=== PATIENT | female | born 1945 | race African-American/Black ===

== ENCOUNTER 2017-05-26 12:50 | Emergency (ER) | payer MEDICARE, MEDICAID ==
[~2017-05-26 12:50] MED LIST: ALBU6.7H INH; AMLO5TAB2 PO; ASPI-516 CHEW; BACL10TA PO; GABA300C5 PO; GLIP5TAB8 PO; IPRAAER INH; LEVO.2 PO; LISI40TA PO; METF500T PO; METR1TAB76 PO; PRED1SUS EACH EYE; TRAM50TA PO
[2017-05-26 13:00] VITALS: BP 173/87; PULSE 102; RESP 18; TEMP 97.9; O2SAT 99
--- NOTE | 2017-05-26 13:56 | PD ---
HPI Chief Complaint: Respiratory Symptoms Time Seen by Provider: 13:25 Travel History International Travel<30 days: No Contact w/Intl Traveler<30days: No Traveled to known affect area: No History of Present Illness HPI Patient 71-year-old female with history of diabetes presents emergency department with cough congestion and posttussive emesis by her description for the past few days and gradually worsening. Patient states that she has also lost her voice. She is also a smoker, states her blood sugars been running "good" and she clarifies to me in the 90s. She denies any chest pain denies shortness of breath denies any fevers. States symptoms are moderate, context as above, gradually worsening, associated signs and symptoms as above PFSH Past Medical History Narrative Medical Irregular heartbeat, diabetes, thyroid disease, hyperlipidemia ?: Not Past Surgical History Narrative Surgical Thyroidectomy, left knee surgery, eye surgery Social History Tobacco Use: Yes Allergies-Medications (Allergen,Severity, Reaction): Coded Allergies: No Known Allergies (Unverified Adverse Reaction, Unknown, 05/26/17) Reported Meds & Prescriptions Reported Meds & Active Scripts Active Tessalon Perles (Benzonatate) 100 Mg Cap 100 Mg PO TID PRN Zofran (Ondansetron HCl) 4 Mg Tab 4 Mg PO Q6HR PRN Azithromycin 250 Mg Tab 250 Mg PO DIRECTED Take 2 tabs (500 mg) on day 1 then 1 tab daily x 4 days. Baclofen 10 Mg Tab 10 Mg PO HS Gabapentin 300 Mg Cap 300 Mg PO TID Tramadol (Tramadol HCl) 50 Mg Tab 50 Mg PO Q8H PRN Glipizide 5 Mg Tab 2.5 Mg PO BID Take 30 minutes before a meal Metformin (Metformin HCl) 500 Mg Tab 500 Mg PO BIDPC With meals Lisinopril 40 Mg Tab 40 Mg PO DAILY Amlodipine (Amlodipine Besylate) 5 Mg Tab 5 Mg PO DAILY Synthroid (Levothyroxine Sodium) 200 Mcg Tab 200 Mcg PO DAILY Combivent Respimat Inh (Ipratropium-Albuterol Inh) 20-100 Group Home/Act Aero 1 Puff INH QID Reported Pred Forte Opth 1% (Prednisolone Acetate Opth 1%) 1% Susp 1 Drop EACH EYE DAILY Aspirin 81 Mg Chew 81 Mg CHEW DAILY Proventil Hfa 6.7 GM Inh (Albuterol Sulfate) 90 Mcg/Act Aer 1 Puff INH Q4-6H PRN Review of Systems Except as stated in HPI: all other systems reviewed are Neg Physical Exam Narrative GENERAL: Well-developed well-nourished no obvious distress SKIN: Focused skin assessment warm/dry. HEAD: Atraumatic. Normocephalic. EYES: Pupils equal and round. No scleral icterus. No injection or drainage. ENT: No nasal bleeding or discharge. Mucous membranes pink and moist. TMs clear bilaterally, oropharynx clear moist NECK: Trachea midline. No JVD. CARDIOVASCULAR: Regular rate and rhythm. No murmur appreciated. RESPIRATORY: No accessory muscle use. Clear to auscultation. Breath sounds equal bilaterally. GASTROINTESTINAL: Abdomen soft, non-tender, nondistended. Hepatic and splenic margins not palpable. MUSCULOSKELETAL: No obvious deformities. No clubbing. No cyanosis. No edema. NEUROLOGICAL: Awake and alert. No obvious cranial nerve deficits. Motor grossly within normal limits. Normal speech. PSYCHIATRIC: Appropriate mood and affect; insight and judgment normal. Data Data Last Documented VS Vital Signs Date Time Temp Pulse Resp B/P (MAP) Pulse Ox O2 Delivery O2 Flow Rate FiO2 05/26/17 13:00 97.9 102 18 173/87 (115) 99 Orders Orders Chest, Pa & Lat (05/26/17 ) Ed Discharge Order (05/26/17 14:23) MDM Medical Decision Making Medical Screen Exam Complete: Yes Emergency Medical Condition: Yes Differential Diagnosis Bronchitis, pneumonia, URI, laryngitis Narrative Course Patient is a quite pleasant 71-year-old diabetic female who appears quite well. Chest x-ray negative. Vital signs are stable is no indication further workup at this time. Discussed empiric therapy follow-up with a primary care physician. Discussed smoking cessation at length with her and that smoking has many adverse health outcomes including heart attack stroke and chronic lung disease. She is stable for discharge Diagnosis Primary Impression: Laryngitis Med/Other Pt SpecificInfo: Prescription(s) given Scripts Benzonatate (Tessalon Perles) 100 Mg Cap 100 MG PO TID Y for COUGH, #20 CAP 0 Refills Prov: Tawanda Brandt MD 05/26/17 Ondansetron (Zofran) 4 Mg Tab 4 MG PO Q6HR Y for NAUSEA OR VOMITING, #15 TAB 0 Refills Prov: Tawanda Brandt MD 05/26/17 Azithromycin (Azithromycin) 250 Mg Tab 250 MG PO DIRECTED for Infection, #6 TAB 0 Refills Take 2 tabs (500 mg) on day 1 then 1 tab daily x 4 days. Prov: Tawanda Brandt MD 05/26/17 Disposition: 01 DISCHARGE HOME Condition: Stable Tawanda Brandt MD May 26, 2017 13:56
[2017-05-26] MEDS ORDERED: AZIT250T3 PO (14:04)
--- NOTE | 2017-05-26 14:15 | RADRPT ---
EXAM DATE/TIME: 05/26/2017 13:34 [facility] COMPARISON: No previous studies available for comparison. INDICATIONS : Cough. MEDICAL HISTORY : Asthma. SURGICAL HISTORY : None. ENCOUNTER: Initial ACUITY: 1 month PAIN SCORE: 0/10 LOCATION: Bilateral chest FINDINGS: PA and lateral views of the chest demonstrate the lungs to be symmetrically aerated without evidence of mass, infiltrate or effusion. The cardiomediastinal contours are unremarkable. Osseous structure s are intact. CONCLUSION: No acute disease. Tawanda Ziegler MD on May 26, 2017 at 14:12 Board Certified Radiologist. This report was verified electronically.
[2017-05-26] MEDS ORDERED: ZOFR4TAB PO (14:29)
[2017-05-26] MEDS ORDERED: BENZ100 PO (14:29)
== END 2017-05-26 14:38 | disposition home or self-care (01) ==
LOC: NEPD 12:50
DX: J04.0 Acute laryngitis (principal); E07.9 Disorder of thyroid, unspecified; E11.9 Type 2 diabetes mellitus without complications; E78.5 Hyperlipidemia, unspecified; Z72.0 Tobacco use; Z79.84 Long term (current) use of oral hypoglycemic drugs
CPT/HCPCS: 71046; 99283

== ENCOUNTER 2017-08-01 19:25 | Emergency (ER) | payer MEDICARE, MEDICAID ==
[~2017-08-01] VITALS: Ht 165.1 cm; Wt 77.0 kg
[~2017-08-01 19:25] MED LIST changes: +AZIT250T3 PO; +BENZ100 PO; -METR1TAB76 PO; +ZOFR4TAB PO
[2017-08-01 19:33] VITALS: BP 149/91; PULSE 98; RESP 18; TEMP 98.7; O2SAT 100
--- NOTE | 2017-08-01 19:46 | PD ---
HPI Chief Complaint: Pain: Acute or Chronic Time Seen by Provider: 19:40 Travel History International Travel<30 days: No Contact w/Intl Traveler<30days: No Traveled to known affect area: No History of Present Illness HPI 71-year-old female with history of hypertension, diabetes, osteoarthritis, presents to the emergency department for evaluation of left shoulder pain 1 week. Patient states she does not recall injuring it. She has not been doing any new activity. She states pain is a constant ache but exacerbated with movement or touch. She states she has been having her daughter massaged and put rubbing alcohol on it without any resolution of symptoms. Patient denies any chest pain or tightness. She has had no shortness of breath. The pain does not radiate anywhere. She has no other symptoms to report at this time. PFSH Past Medical History Arthritis: Yes Heart Rhythm Problems: Yes Diabetes: Yes Patient Takes Glucophage: Yes Hypertension: Yes Thyroid Disease: Yes Triglycerides - High: Yes Tetanus Vaccination: > 5 Years Influenza Vaccination: Yes Past Surgical History Ear Surgery: Yes (bilat eye) Eye Surgery: Yes Tonsillectomy: Yes Social History Alcohol Use: Yes (occ) Tobacco Use: Yes Substance Use: No Allergies-Medications (Allergen,Severity, Reaction): Coded Allergies: No Known Allergies (Unverified Adverse Reaction, Unknown, 08/01/17) Reported Meds & Prescriptions Reported Meds & Active Scripts Active Mobic (Meloxicam) 7.5 Mg Tab 7.5 Mg PO DAILY PRN Baclofen 10 Mg Tab 10 Mg PO HS Gabapentin 300 Mg Cap 300 Mg PO TID Tramadol (Tramadol HCl) 50 Mg Tab 50 Mg PO Q8H PRN Glipizide 5 Mg Tab 2.5 Mg PO BID Take 30 minutes before a meal Metformin (Metformin HCl) 500 Mg Tab 500 Mg PO BIDPC With meals Lisinopril 40 Mg Tab 40 Mg PO DAILY Amlodipine (Amlodipine Besylate) 5 Mg Tab 5 Mg PO DAILY Synthroid (Levothyroxine Sodium) 200 Mcg Tab 200 Mcg PO DAILY Combivent Respimat Inh (Ipratropium-Albuterol Inh) 20-100 Correction/Act Aero 1 Puff INH QID Reported Pred Forte Opth 1% (Prednisolone Acetate Opth 1%) 1% Susp 1 Drop EACH EYE DAILY Aspirin 81 Mg Chew 81 Mg CHEW DAILY Proventil Hfa 6.7 GM Inh (Albuterol Sulfate) 90 Mcg/Act Aer 1 Puff INH Q4-6H PRN Review of Systems Except as stated in HPI: all other systems reviewed are Neg Physical Exam Narrative GENERAL: Well-nourished female patient, ambulatory with cane assistance, in no acute distress SKIN: Focused skin assessment warm/dry. HEAD: Atraumatic. Normocephalic. EYES: Pupils equal and round. No scleral icterus. No injection or drainage. ENT: No nasal bleeding or discharge. Mucous membranes pink and moist. NECK: Trachea midline. No JVD. CARDIOVASCULAR: Regular rate and rhythm. No murmur appreciated. RESPIRATORY: No accessory muscle use. Clear to auscultation. Breath sounds equal bilaterally. MUSCULOSKELETAL: No obvious deformities. No clubbing. No cyanosis. No edema. Tenderness elicited palpation of the anterior aspect of the left shoulder. Patient reports pain with external rotation of the left upper extremity without side. Distal pulses are palpable. Cap refill within normal limits. No obvious deformity. NEUROLOGICAL: Awake and alert. No obvious cranial nerve deficits. Motor grossly within normal limits. Normal speech. PSYCHIATRIC: Appropriate mood and affect; insight and judgment normal. Data Data Last Documented VS Vital Signs Date Time Temp Pulse Resp B/P (MAP) Pulse Ox O2 Delivery O2 Flow Rate FiO2 08/01/17 19:54 20 08/01/17 19:33 98.7 98 149/91 (110) 100 Orders Orders Shoulder, Complete (>2vws) (08/01/17 ) Ketorolac Inj (Toradol Inj) (08/01/17 20:00) Ed Discharge Order (08/01/17 20:30) [facility] Medical Decision Making Medical Screen Exam Complete: Yes Emergency Medical Condition: Yes Medical Record Reviewed: Yes Differential Diagnosis Tendinitis versus osteoarthritis versus herpetic predrome versus bursitis Narrative Course 71-year-old female presents emergency department for evaluation of left shoulder pain. This is exacerbated with movement. Patient reports no fever chills. The shoulder is not deformed. There is no warmth to touch. Patient is treated for pain. X-ray imaging confirms osteoarthritis of the left shoulder. I have encouraged follow-up with a primary care provider and clinical applications specialist if symptoms persist. Patient will be discharged home at this time. Diagnosis Primary Impression: Left shoulder pain Qualified Codes: M25.512 - Pain in left shoulder Additional Impression: Osteoarthritis of left shoulder Qualified Codes: M19.012 - Primary osteoarthritis, left shoulder Referrals: Orthopaedic Surgeon Primary Care Physician Patient Instructions: General Instructions, Shoulder Pain (ED) Additional Instructions: Ice and/or warm moist heat may help to alleviate symptoms Daily range of motion exercises Follow-up with clinical applications specialist. Outpatient MRI may be warranted Return immediately to the emergency department with any acute worsening symptoms Med/Other Pt SpecificInfo: Prescription(s) given Scripts Meloxicam (Mobic) 7.5 Mg Tab 7.5 MG PO DAILY Y for PAIN SCALE 1 TO 10, #14 TAB 0 Refills Prov: Sofia Fritz 08/01/17 Disposition: 01 DISCHARGE HOME Condition: Stable Sofia Fritz August 01, 2017 19:46
[2017-08-01] MEDS ORDERED: KETOROLAC TROMETHAMINE 60 MG/2 ML (IM) VIAL IM ONE (20:00)
--- NOTE | 2017-08-01 20:27 | RADRPT ---
EXAM DATE: 08/01/2017 8:18 PM EDT AGE/SEX: 71 years / Female INDICATIONS: Left shoulder pain. No prior trauma. CLINICAL DATA: This is the patient's initial encounter. Patient reports that signs and symptoms have been present for 1 week and indicates a pain score of 8/10. MEDICAL/SURGICAL HISTORY: Asthma. None. COMPARISON: No prior [facility] exams available for comparison. FINDINGS: There is moderate to severe osteoarthritis of the left shoulder joint. Mild osteoarthritis of the lef t AC joint. No acute fracture or dislocation. CONCLUSION: Moderate to severe osteoarthritis of the left shoulder. Electronically signed by: Catalino Alcocer MD 08/01/2017 8:26 PM EDT
[2017-08-01] MEDS ORDERED: MOBI7.5T PO (20:33)
[2017-08-01 22:11] VITALS: BP 139/76
== END 2017-08-01 22:13 | disposition home or self-care (01) ==
LOC: NEPE 19:25
DX: M19.012 Primary osteoarthritis, left shoulder (principal); I10 Essential (primary) hypertension; E11.9 Type 2 diabetes mellitus without complications; E07.9 Disorder of thyroid, unspecified; Z72.0 Tobacco use
CPT/HCPCS: 73030; 96372; 99283; J1885

== ENCOUNTER 2017-08-03 11:30 | Inpatient (IN) | payer MEDICARE, MEDICAID ==
[~2017-08-03] VITALS: Ht 165.1 cm; Wt 77.0 kg
[2017-08-03] VITALS (14 sets, daily range): BP systolic 120–176; BP diastolic 65–92; PULSE 60–88; RESP 16–20; TEMP 98–98.5; O2SAT 97–99
[~2017-08-03 11:30] MED LIST changes: -AZIT250T3 PO; -BENZ100 PO; +MOBI7.5T PO; -ZOFR4TAB PO
--- NOTE | 2017-08-03 11:51 | PD ---
HPI Chief Complaint: Chest Pain Time Seen by Provider: 11:46 Travel History International Travel<30 days: No Contact w/Intl Traveler<30days: No Traveled to known affect area: No History of Present Illness HPI 71-year-old female with history of hypertension, diabetes, osteoarthritis, presents to the emergency department for evaluation of left shoulder pain 1 week. Patient states she does not recall injuring it. She has not been doing any new activity. She states pain is a constant ache but exacerbated with movement or touch. Patient was discharged 2 days ago with similar complaint, with diagnosis of arthritis in the shoulder. She was started on meloxicam twice daily, but patient states she never picked it up. Patient went to see her primary care physician who sent her here for cardiac workup. Patient denies pain changes with exertion. It is worse with movement and palpation. She has however a smoker, diabetic, and has previous cardiac history. She is unsure of her last stress test but knows it was over a year. Patient denies fever, chills, cough, shortness of breath, wheezing, nausea, vomiting, or diarrhea. She has no known drug allergies. Patient states she has arthritis in all of her joints, but the shoulder feels "different". Patient states her pain in the left shoulder is 10 out of 10. Patient has no known drug allergies. PFSH Past Medical History Arthritis: Yes Heart Rhythm Problems: Yes Diabetes: Yes Hypertension: Yes Thyroid Disease: Yes Triglycerides - High: Yes Past Surgical History Ear Surgery: Yes (bilat eye) Eye Surgery: Yes Tonsillectomy: Yes Social History Alcohol Use: Yes (occ) Tobacco Use: Yes Substance Use: No Allergies-Medications (Allergen,Severity, Reaction): Coded Allergies: No Known Allergies (Unverified Adverse Reaction, Unknown, 08/03/17) Reported Meds & Prescriptions Reported Meds & Active Scripts Active Mobic (Meloxicam) 7.5 Mg Tab 7.5 Mg PO DAILY PRN Baclofen 10 Mg Tab 10 Mg PO HS Gabapentin 300 Mg Cap 300 Mg PO TID Tramadol (Tramadol HCl) 50 Mg Tab 50 Mg PO Q8H PRN Glipizide 5 Mg Tab 2.5 Mg PO BID Take 30 minutes before a meal Metformin (Metformin HCl) 500 Mg Tab 500 Mg PO BIDPC With meals Lisinopril 40 Mg Tab 40 Mg PO DAILY Amlodipine (Amlodipine Besylate) 5 Mg Tab 5 Mg PO DAILY Synthroid (Levothyroxine Sodium) 200 Mcg Tab 200 Mcg PO DAILY Combivent Respimat Inh (Ipratropium-Albuterol Inh) 20-100 Skilled Nursing/Act Aero 1 Puff INH QID Reported Pred Forte Opth 1% (Prednisolone Acetate Opth 1%) 1% Susp 1 Drop EACH EYE DAILY Aspirin 81 Mg Chew 81 Mg CHEW DAILY Proventil Hfa 6.7 GM Inh (Albuterol Sulfate) 90 Mcg/Act Aer 1 Puff INH Q4-6H PRN Review of Systems Except as stated in HPI: all other systems reviewed are Neg General / Constitutional: No: Fever Eyes: No: Visual changes HENT: No: Headaches Cardiovascular: No: Chest Pain or Discomfort Respiratory: No: Shortness of Breath Gastrointestinal: No: Abdominal Pain Genitourinary: No: Dysuria Musculoskeletal: No: Pain Skin: No Rash Neurologic: No: Weakness Psychiatric: No: Depression Endocrine: No: Polydipsia Hematologic/Lymphatic: No: Easy Bruising Physical Exam Narrative GENERAL: Patient appears in mild distress. SKIN: Warm and dry. Normal color. Normal turgor. No diaphoresis. No signs of trauma. HEAD: Atraumatic. Normocephalic. EYES: Pupils equal and round. No scleral icterus. No injection or drainage. ENT: No nasal bleeding or discharge. Mucous membranes pink and moist. Pharynx is clear. Airways patent NECK: Trachea midline. No JVD. Supple and nontender CARDIOVASCULAR: Regular rate and rhythm. No murmurs gallops or rubs RESPIRATORY: No accessory muscle use. Clear to auscultation. Breath sounds equal bilaterally. GASTROINTESTINAL: Abdomen soft, non-tender, nondistended. Hepatic and splenic margins not palpable. MUSCULOSKELETAL: Extremities without clubbing, cyanosis, or edema. No obvious deformities. Patient has reproducible pain in the left shoulder with both palpation, mainly to the posterior aspect, as well as with movement. Range of motion is intact although limited by pain. She has normal neurovascular exam throughout. NEUROLOGICAL: Awake and alert. No obvious cranial nerve deficits. Motor grossly within normal limits. Five out of 5 muscle strength in the arms and legs. Normal speech. PSYCHIATRIC: Appropriate mood and affect; insight and judgment normal. Data Data Last Documented VS Vital Signs Date Time Temp Pulse Resp B/P (MAP) Pulse Ox O2 Delivery O2 Flow Rate FiO2 5/30/18 11:52 99 Room Air 08/03/17 11:52 08/03/17 11:47 80 20 08/03/17 11:36 98.5 Orders Orders Electrocardiogram (08/03/17 11:50) Ckmb (Isoenzyme) Profile (08/03/17 11:50) Complete Blood Count With Diff (08/03/17 11:50) Comprehensive Metabolic Panel (08/03/17 11:50) Magnesium (Mg) (08/03/17 11:50) Prothrombin Time / Inr (Pt) (08/03/17 11:50) Act Partial Throm Time (Ptt) (08/03/17 11:50) Troponin I (08/03/17 11:50) Chest, Single Ap (08/03/17 11:50) Ecg Monitoring (08/03/17 11:50) Bilateral Bp Monitoring (08/03/17 11:50) Iv Access Insert/Monitor (08/03/17 11:50) Oximetry (08/03/17 11:50) Oxygen Administration (08/03/17 11:50) Aspirin Chew (Aspirin Chew) (08/03/17 12:00) Morphine Inj (Morphine Inj) (08/03/17 12:00) Sodium Chloride 0.9% Flush (Ns Flush) (08/03/17 12:00) Nitroglycerin Sl (Nitrostat Sl) (08/03/17 12:00) Sodium Chlorid 0.9% 500 Ml Inj (Ns 500 M (08/03/17 12:00) Nitroglycerin 2% Oint (Nitroglycerin 2% (08/03/17 13:30) Heparin Inj (Heparin Inj) (08/03/17 13:30) Heparin Inj (Heparin Inj) (08/03/17 19:30) Heparin Inj (Heparin Inj) (08/03/17 19:30) Heparin-D5w 25,000 U/250 Ml (Heparin-D5w (08/03/17 13:30) Cbc No Diff, Includes Plts (08/06/17 06:00) Act Partial Throm Time (Ptt) (08/03/17 20:19) Occult Blood (Hemoccult) Stool (08/03/17 13:19) Labs Laboratory Tests Test 08/03/17 11:55 White Blood Count 5.3 TH/MM3 Red Blood Count 4.25 MIL/MM3 Hemoglobin 13.6 GM/DL Hematocrit 40.1 % Mean Corpuscular Volume 94.2 FL Mean Corpuscular Hemoglobin 31.9 PG Mean Corpuscular Hemoglobin Concent 33.9 % Red Cell Distribution Width 13.9 % Platelet Count 201 TH/MM3 Mean Platelet Volume 9.2 FL Neutrophils (%) (Auto) 52.6 % Lymphocytes (%) (Auto) 37.0 % Monocytes (%) (Auto) 7.2 % Eosinophils (%) (Auto) 2.6 % Basophils (%) (Auto) 0.6 % Neutrophils # (Auto) 2.8 TH/MM3 Lymphocytes # (Auto) 1.9 TH/MM3 Monocytes # (Auto) 0.4 TH/MM3 Eosinophils # (Auto) 0.1 TH/MM3 Basophils # (Auto) 0.0 TH/MM3 CBC Comment DIFF FINAL Differential Comment Prothrombin Time 9.5 SEC Prothromb Time International Ratio 0.9 RATIO Activated Partial Thromboplast Time 23.8 SEC Blood Urea Nitrogen 14 MG/DL Creatinine 0.91 MG/DL Random Glucose 85 MG/DL Total Protein 7.2 GM/DL Albumin 3.4 GM/DL Calcium Level 8.5 MG/DL Magnesium Level 2.0 MG/DL Alkaline Phosphatase 165 U/L Aspartate Amino Transf (AST/SGOT) 53 U/L Alanine Aminotransferase (ALT/SGPT) 106 U/L Total Bilirubin 0.2 MG/DL Sodium Level 143 MEQ/L Potassium Level 4.3 MEQ/L Chloride Level 107 MEQ/L Carbon Dioxide Level 26.0 MEQ/L Anion Gap 10 MEQ/L Estimat Glomerular Filtration Rate 74 ML/MIN Total Creatine Kinase 77 U/L Troponin I 0.11 NG/ML [facility] Medical Decision Making Medical Screen Exam Complete: Yes Emergency Medical Condition: Yes Medical Record Reviewed: Yes Differential Diagnosis Left shoulder pain. Arthritis. Possible cardiac syndrome. Narrative Course Patient appears medically stable at time of exam. EKG shows sinus rhythm with question of anterior myocardial infarction of indeterminate age. Labs ordered including CBC, CMP, cardiac panel, and coagulation studies. Patient is given 324 mg aspirin p.o. as well as 2 mg morphine IV, 0.4 mg sublingual nitro once, and a 500 mL of normal saline bolus. Chest x-ray is ordered. Chest x-ray shows no acute process. CBC is unremarkable. Coagulation studies shows a PT of 9.5, INR 0.9, APTT is 23.8 Chemistries are unremarkable except for GFR 74, AST is 53, ALT is 106, alk phos is 165. Total creatinine kinase is 77, troponin is elevated at 0.11. Patient is discussed with Dr. Feldman who examined the patient with me. At reexamination the patient is pain-free. It is felt the patient should be admitted due to her elevated troponin with history of chest pain. Patient started on Nitropaste 0.5 inches topically now. Patient also started on a heparin drip per protocol. Hospitalist is called for admission, and appellate court judge will be consulted. Diagnosis Primary Impression: Chest pain at rest Additional Impression: Elevated troponin Admitting Information Admitting Physician Requests: Admit Condition: Stable Isidoro Mckeon August 03, 2017 11:51
[2017-08-03] MEDS ORDERED: SODIUM CHLORID 0.9% 500 ML INJ 500 ML IV ONE (12:00)
[2017-08-03] MEDS ORDERED: NITROGLYCERIN 0.4 MG SL 25 TABS/BTL SL ONE (12:00)
[2017-08-03] MEDS ORDERED: SODIUM CHLORIDE 0.9% FLUSH 10 ML FLUSH IVF PRN (12:00)
[2017-08-03] MEDS ORDERED: ASPIRIN 81 MG CHEW TAB PO ONE (12:00)
[2017-08-03] MEDS ORDERED: MORPHINE SULFATE 4 MG/ML INJ IV PUSH ONE (12:00)
[2017-08-03 12:15] LABS: AUTOMATED NEUTROPHIL # 2.8 TH/MM3 (1.8-7.7); BASOPHIL % 0.6 % (0.0-2.0); EOSINOPHIL # 0.1 TH/MM3 (0-0.4); EOSINOPHIL % 2.6 % (0.0-4.0); HEMATOCRIT 40.1 % (35.0-46.0); HEMOGLOBIN 13.6 GM/DL (11.6-15.3); LYMPHOCYTE # 1.9 TH/MM3 (1.0-4.8); MEAN CELL VOLUME 94.2 FL (80.0-100.0); MEAN CORPUSCULAR HEMOGLOBIN 31.9 PG (27.0-34.0); MEAN CORPUSCULAR HGB CONC 33.9 % (32.0-36.0); MEAN PLATELET VOLUME 9.2 FL (7.0-11.0); MONO % 7.2 % (0.0-8.0); MONOCYTE # 0.4 TH/MM3 (0-0.9); NEUT % 52.6 % (16.0-70.0); PLATELET COUNT 201 TH/MM3 (150-450); RED BLOOD COUNT 4.25 MIL/MM3 (4.00-5.30); RED CELL DISTRIBUTION WIDTH 13.9 % (11.6-17.2); WHITE BLOOD COUNT 5.3 TH/MM3 (4.0-11.0)
[2017-08-03 12:24] LABS: INTERNATIONAL NORMALIZED RATIO 0.9 RATIO; PROTHROMBIN TIME - PATIENT 9.5 SEC (9.8-11.6)
[2017-08-03 12:30] LABS: ALBUMIN 3.4 GM/DL (3.4-5.0); ALT (GPT) 106 U/L (10-53); AST (GOT) 53 U/L (15-37); BLOOD UREA NITROGEN 14 MG/DL (7-18); CALCIUM 8.5 MG/DL (8.5-10.1); CHLORIDE 107 MEQ/L (98-107); CREATININE 0.91 MG/DL (0.50-1.00); GLOMERULAR FILTRATION RATE 74 ML/MIN (>89); GLUCOSE,RANDOM 85 MG/DL (74-106); SODIUM (NA) 143 MEQ/L (136-145)
[2017-08-03 12:34] LABS: ALKALINE PHOSPHATASE 165 U/L (45-117); TOTAL BILIRUBIN ADULT 0.2 MG/DL (0.2-1.0); TOTAL PROTEIN 7.2 GM/DL (6.4-8.2); TROPONIN I 0.11 NG/ML (0.02-0.05)
--- NOTE | 2017-08-03 12:34 | RADRPT ---
EXAM DATE: 08/03/2017 12:16 PM EDT AGE/SEX: 71 years / Female INDICATIONS: Left sided chest pain. CLINICAL DATA: This is the patient's initial encounter. Patient reports that signs and symptoms have been present for 3 days and indicates a pain score of 5/10. MEDICAL/SURGICAL HISTORY: Asthma. None. COMPARISON: No prior exams available for comparison. FINDINGS: No focal consolidation. Minimal basilar atelectasis. Tortuous aorta. No pneumothorax. CONCLUSION: No acute findings. Mildly tortuous aorta. Electronically signed by: Catalino Alcocer MD 08/03/2017 12:33 PM EDT
--- NOTE | 2017-08-03 13:22 | PD ---
Physical Exam Date Seen by Provider: August 03, 2017 Data Data Last Documented VS Vital Signs Date Time Temp Pulse Resp B/P (MAP) Pulse Ox O2 Delivery O2 Flow Rate FiO2 08/03/17 11:52 99 Room Air 08/03/17 11:52 08/03/17 11:47 80 20 08/03/17 11:36 98.5 Orders Orders Electrocardiogram (08/03/17 11:50) Ckmb (Isoenzyme) Profile (08/03/17 11:50) Complete Blood Count With Diff (08/03/17 11:50) Comprehensive Metabolic Panel (08/03/17 11:50) Magnesium (Mg) (08/03/17 11:50) Prothrombin Time / Inr (Pt) (08/03/17 11:50) Act Partial Throm Time (Ptt) (08/03/17 11:50) Troponin I (08/03/17 11:50) Chest, Single Ap (08/03/17 11:50) Ecg Monitoring (08/03/17 11:50) Bilateral Bp Monitoring (08/03/17 11:50) Iv Access Insert/Monitor (08/03/17 11:50) Oximetry (08/03/17 11:50) Oxygen Administration (08/03/17 11:50) Aspirin Chew (Aspirin Chew) (08/03/17 12:00) Morphine Inj (Morphine Inj) (08/03/17 12:00) Sodium Chloride 0.9% Flush (Ns Flush) (08/03/17 12:00) Nitroglycerin Sl (Nitrostat Sl) (08/03/17 12:00) Sodium Chlorid 0.9% 500 Ml Inj (Ns 500 M (08/03/17 12:00) Labs Laboratory Tests Test 08/03/17 11:55 White Blood Count 5.3 TH/MM3 Red Blood Count 4.25 MIL/MM3 Hemoglobin 13.6 GM/DL Hematocrit 40.1 % Mean Corpuscular Volume 94.2 FL Mean Corpuscular Hemoglobin 31.9 PG Mean Corpuscular Hemoglobin Concent 33.9 % Red Cell Distribution Width 13.9 % Platelet Count 201 TH/MM3 Mean Platelet Volume 9.2 FL Neutrophils (%) (Auto) 52.6 % Lymphocytes (%) (Auto) 37.0 % Monocytes (%) (Auto) 7.2 % Eosinophils (%) (Auto) 2.6 % Basophils (%) (Auto) 0.6 % Neutrophils # (Auto) 2.8 TH/MM3 Lymphocytes # (Auto) 1.9 TH/MM3 Monocytes # (Auto) 0.4 TH/MM3 Eosinophils # (Auto) 0.1 TH/MM3 Basophils # (Auto) 0.0 TH/MM3 CBC Comment DIFF FINAL Differential Comment Prothrombin Time 9.5 SEC Prothromb Time International Ratio 0.9 RATIO Activated Partial Thromboplast Time 23.8 SEC Blood Urea Nitrogen 14 MG/DL Creatinine 0.91 MG/DL Random Glucose 85 MG/DL Total Protein 7.2 GM/DL Albumin 3.4 GM/DL Calcium Level 8.5 MG/DL Magnesium Level 2.0 MG/DL Alkaline Phosphatase 165 U/L Aspartate Amino Transf (AST/SGOT) 53 U/L Alanine Aminotransferase (ALT/SGPT) 106 U/L Total Bilirubin 0.2 MG/DL Sodium Level 143 MEQ/L Potassium Level 4.3 MEQ/L Chloride Level 107 MEQ/L Carbon Dioxide Level 26.0 MEQ/L Anion Gap 10 MEQ/L Estimat Glomerular Filtration Rate 74 ML/MIN Total Creatine Kinase 77 U/L Troponin I 0.11 NG/ML [facility] Medical Record Reviewed: Yes Supervised Visit with CHLOE: Yes Interpretation(s) Vital Signs Date Time Temp Pulse Resp B/P (MAP) Pulse Ox O2 Delivery O2 Flow Rate FiO2 08/03/17 11:52 99 Room Air 08/03/17 11:52 99 Room Air 08/03/17 11:47 80 20 99 Room Air 08/03/17 11:47 78 18 141/92 (108) 99 Room Air 08/03/17 11:36 98.5 77 16 121/65 (83) 97 Narrative Course I, Dr. Feldman, have reviewed the advance practice practitioner's documentation and am in agreement, met with the patient face to face, made the diagnosis, and the medical decision making was done by me. *My assessment and Findings: Patient is a 71-year-old female with history of hypertension, diabetes, osteoarthritis, presents the emergency room with complaints of left-sided chest pain. Patient reports that she was seen in the emergency room on Tuesday, reports that she had left shoulder pain at that time and after an an x-ray was obtained and was deemed negative, patient was sent home. Patient reports that she continued to have left-sided shoulder pain but now had pain to her left chest, she was sent to the emergency room by her primary care doctor for cardiac rule out. Patient reports that she had been having pinching sensation to her left chest which had been intermittent in nature for the past week, reports that nothing makes symptoms better or worse. Patient did receive nitroglycerin as well as morphine in the emergency room, patient has complete resolution of symptoms at this time. Patient denies history of ACS, denies history of cardiac stents or prior NV, she does not have a secretary of police in this area. All labs and all studies reviewed, patient does have a elevated troponin Laboratory Tests Test 08/03/17 11:55 White Blood Count 5.3 TH/MM3 (4.0-11.0) Red Blood Count 4.25 MIL/MM3 (4.00-5.30) Hemoglobin 13.6 GM/DL (11.6-15.3) Hematocrit 40.1 % (35.0-46.0) Mean Corpuscular Volume 94.2 FL (80.0-100.0) Mean Corpuscular Hemoglobin 31.9 PG (27.0-34.0) Mean Corpuscular Hemoglobin Concent 33.9 % (32.0-36.0) Red Cell Distribution Width 13.9 % (11.6-17.2) Platelet Count 201 TH/MM3 (150-450) Mean Platelet Volume 9.2 FL (7.0-11.0) Neutrophils (%) (Auto) 52.6 % (16.0-70.0) Lymphocytes (%) (Auto) 37.0 % (9.0-44.0) Monocytes (%) (Auto) 7.2 % (0.0-8.0) Eosinophils (%) (Auto) 2.6 % (0.0-4.0) Basophils (%) (Auto) 0.6 % (0.0-2.0) Neutrophils # (Auto) 2.8 TH/MM3 (1.8-7.7) Lymphocytes # (Auto) 1.9 TH/MM3 (1.0-4.8) Monocytes # (Auto) 0.4 TH/MM3 (0-0.9) Eosinophils # (Auto) 0.1 TH/MM3 (0-0.4) Basophils # (Auto) 0.0 TH/MM3 (0-0.2) CBC Comment DIFF FINAL Differential Comment Prothrombin Time 9.5 SEC (9.8-11.6) Prothromb Time International Ratio 0.9 RATIO Activated Partial Thromboplast Time 23.8 SEC (24.3-30.1) Blood Urea Nitrogen 14 MG/DL (7-18) Creatinine 0.91 MG/DL (0.50-1.00) Random Glucose 85 MG/DL (74-106) Total Protein 7.2 GM/DL (6.4-8.2) Albumin 3.4 GM/DL (3.4-5.0) Calcium Level 8.5 MG/DL (8.5-10.1) Magnesium Level 2.0 MG/DL (1.5-2.5) Alkaline Phosphatase 165 U/L (45-117) Aspartate Amino Transf (AST/SGOT) 53 U/L (15-37) Alanine Aminotransferase (ALT/SGPT) 106 U/L (10-53) Total Bilirubin 0.2 MG/DL (0.2-1.0) Sodium Level 143 MEQ/L (136-145) Potassium Level 4.3 MEQ/L (3.5-5.1) Chloride Level 107 MEQ/L (98-107) Carbon Dioxide Level 26.0 MEQ/L (21.0-32.0) Anion Gap 10 MEQ/L (5-15) Estimat Glomerular Filtration Rate 74 ML/MIN (>89) Total Creatine Kinase 77 U/L (26-192) Troponin I 0.11 NG/ML (0.02-0.05) Troponin 0.11. Patient will be started on heparin, she is chest pain-free at this time, Nitropaste will be placed. Patient will require admission to the hospital. Patient was given aspirin upon arrival to the emergency room. Diagnosis Primary Impression: NSTEMI (non-ST elevated myocardial infarction) Admitting Information Admitting Physician Requests: Admit Condition: Stable Amber Feldman DO August 03, 2017 13:22
[2017-08-03] MEDS ORDERED: HEPARIN-D5W 25,000 U/250 ML 250 ML IV PRN (13:30)
[2017-08-03] MEDS ORDERED: NITROGLYCERIN 2% OINT 1 GM PACKET TOPICAL ONE (13:30)
[2017-08-03] MEDS ORDERED: HEPARIN SODIUM - IV 10,000 UNITS/10 ML VIAL IV PUSH ONE (13:30)
[2017-08-03] MEDS ORDERED: SODIUM CHLORIDE 0.9% FLUSH 10 ML FLUSH IV FLUSH PRN ×3 (14:00→16:30)
[2017-08-03] MEDS ORDERED: ALBUTEROL SULFATE 90 MCG/ACT HFA 8 GM INHALER INH PRN (14:00)
[2017-08-03] MEDS ORDERED: HEPARIN-NS/PF INJ 500 ML ONE (14:33)
[2017-08-03] MEDS ORDERED: MIDAZOLAM HCL 2 MG/2 ML VIAL ONE (14:33)
[2017-08-03] MEDS ORDERED: CARVEDILOL 3.125 MG TAB PO ONE (15:30)
[2017-08-03] MEDS ORDERED: BACITRACIN OINT 0.9 GM PKT TOP ONE (15:30)
[2017-08-03] MEDS ORDERED: MISC INFORMATION XX ONE (15:30)
--- NOTE | 2017-08-03 15:32 | CATHPROC ---
[facility] HIS Report Study Information Study Number Scheduled Start Study Start [id number] 08/03/2017 Aug 03 2017 2:02PM Study Type Left Heart Cath Referring Institution Admit Source Facility Department 1 Emergency department [facility] - Power Plant Mechanic Physician and Clinical Staff Initial Aleksey Roth Shellacker Daniel Lang RN Shellacker Neha Greenberg RN Recorder Suzanna Rincon,RT(R) Recorder Amber Jessica,LEISA Scrub Kathy Garber ,RT(R) Procedures Performed Procedure Location (Site) Vessel Name Angiogram LV LV Ventricle Coronary Angiograms LCA Left Coronary Coronary Angiograms RCA Right Coronary L Heart Cath Equipment Time Lump Machine Operator Description Size Mfg Part Number Used/Scraped TRANSDUCER, TRUWAVE [id number] 14:15 CHILDRESS VASQUEZ * Used W/STOCKCOCK *[id number] *[id number] *[id number] 14:15 MEDLINE INDUSTRIES PACK, CCL CUSTOM * Used *[id number] 14:15 Hyperpot PACER PEN, SKIN DUAL W/ RULER * Used *[id number] 14:15 Jetaport WIRE, 3MMJ .035 180CM 180CM Used *[id number] 14:15 NAMIC MANIFOLD, 4 PORT * Used *[id number] 14:15 NYCOMED OMNIPAQUE, 350 MG, 150ML 150ML [id number] 14:15 ZAMBRANO MEDICAL BLANKET,WARM AIR CCL * Used *[id number] 14:15 TERUMO MEDICAL SHEATH, FR4 TERUMO (10CM) FR 4 Used *[id number] History: Current Medications Medication Dosage/Unit Route Frequency Last Date/Time Taken ASA Glypizide LISINOPRIL NORVASC History: Allergies Allergy Reaction No Known Allergies History: Risk Factors Family History of Hypertension Dyslipidemia Previous AR Previous Heart Failure Premature CAD Yes No Yes No No Prior Valve Prior PCI Prior CABG Surgery No No No Cerebrovascular Peripheral Artery Chronic Lung On Dialysis Diabetes Diabetes Therapy Disease Disease Disease No No Yes Yes Yes Oral History: Risk Factors Selection Items Current Smoker Diabetes History: Symptoms/Diagnosis Selection Items Chest pain History: CV Disease Selection Items AR History: Stress Tests Stress or Imaging Studies Performed No History: Other Disease Selection Items CAD Cancer COPD HTN History: Other Current Smoker Packs a Day Years Used Pack Years Yes 1 37 37 Labs Hgb (g/dl) Hct (%) WBC (l/cumm) Platelets (thousands) 11.60-17.00 35.00-51.00 4.00-11.00 150.00-450.00 13.6 40.1 5.3 201 Glucose (mg/dl) BUN (mg/dl) Creatinine (mg/dl) BUN:Creatinine (1:x) 74.00-106.00 7.00-18.00 0.50-1.30 10.00-20.00 85 14 0.9 15.6 Na (meq/l) K (meq/l) 136.00-145.00 3.50-5.10 143 4.3 INR (PTT:PT) 0.90-1.10 0.9 Troponin I (ng/ml) CPK (u/l) CPK-MB (ng/ML) 0.02-0.05 26.00-308.00 0.50-3.60 0.11 77 Not Drawn Medication Medication Total Dose (Bolus/Oral) Medication Total Dosage/Unit 1% XYLOCAINE 20 mL FENTANYL 25 mcg VERSED 2 mg Medications (Bolus/Oral) Medication Time Given Dosage/Unit Administered By Reason 1% XYLOCAINE 08/03/2017 2:51:31 PM 20 mL Aleksey Rich 20 mL 1% XYLOCAINE given in lab by Aleksey Rich in Right Groin via Subcutaneous. Ordered by Aleksey Velazquez. VERSED 08/03/2017 2:51:42 PM 1 mg Neha Greenberg 1 mg VERSED given in lab by Neha Greenberg RN in Left Antecubital via Peripheral IV. Ordered by Aleksey Moreno. FENTANYL 08/03/2017 2:52:50 PM 25 mcg Neha Greenberg 25 mcg FENTANYL given in lab by Neha Greenberg RN in Left Antecubital via Peripheral IV. Ordered by Aleksey Rich. VERSED 08/03/2017 2:55:00 PM 1 mg Neha Greenberg 1 mg VERSED given in lab by Neha Greenberg RN in Left Antecubital via Peripheral IV. Ordered by Aleksey Moreno. Initial Case Assessment Cardiovascular HR Rhythm NIBP Chest Pain 64 NSR 146/93 0 Edema Present Skin color Skin None Normal Warm Dry Circulatory - Right Pulses Dorsalis Pedis Posterior Tibial Femoral 2 2 2 Scale (0,1,2,3,4,d) Circulatory - Left Pulses Dorsalis Pedis Posterior Tibial Femoral 2 2 2 Scale (0,1,2,3,4,d) Circulatory - Lower Extremities Color Lower Right Color Lower Left Normal Normal Neurological State Oriented to time-place- Alert Moves all extremities person Respiration - General Respiration Rate SpO2 (%) (B/min) 17 99 Final Case Assessment Cardiovascular HR Rhythm NIBP Chest Pain 70 NSR 153/80 0 Edema Present Skin color Skin None Normal Warm Dry Circulatory - Right Pulses Dorsalis Pedis Posterior Tibial Femoral 2 2 2 Scale (0,1,2,3,4,d) Circulatory - Left Pulses Dorsalis Pedis Posterior Tibial Femoral 2 2 2 Scale (0,1,2,3,4,d) Circulatory - Lower Extremities Color Lower Right Color Lower Left Normal Normal Neurological State Oriented to time-place- Alert Moves all extremities person Respiration - General Respiration Rate SpO2 (%) (B/min) 18 100 Chronological Log Time Study Chronological Log 14:26:13 Patient arrived via Bed. 14:26:14 Patient Name, D.O.B, / Armband Verified By R.N. 14:26:14 Consent signed by the physician and the patient and verified by the Power Plant Mechanic staff. 14:26:15 Pre-op and post- op instructions given; patient acknowledges understanding of instructions. Verbal Stimulation=~VERBAL~ Physical Stimulation=~PHYSICAL~ Airway=~AIRWAY~ Respiration=~RESPIR ATION~ 14:26:16 TOTAL=~TOTAL~. (0=absent, 1=limited, 2=present) 14:26:24 Verbal Stimulation=2 Physical Stimulation=2 Airway=2 Respiration=2 TOTAL=8. (0=absent, 1=li mited, 2=present) 14:26:35 Presedation assessment performed by Power Plant Mechanic RN. 14:26:40 Patient has been NPO for More than 6Hrs. 14:26:41 Skin Breakdown-none per pt 14:26:46 Patient Warmer Placed on the Table. 14:26:48 [place] Prominences Protected 14:26:50 A # 20 IV was noted in the Antecubital (left). Grade = 0 0.9NS infusing at KVO Vitals capture started with the following parameters, Patient=Adult, Interval=5 min, Initial Pr iilrql=932 mmHg, 14:27:11 Deflation Rate=5 mmHg, Cuff placed on Right Arm 14:28:16 HR=64 bpm, DCYN=865/93 mmhg, SyD7=676.0 %, Resp=17 B/min, Pain=0, Kevin=10, Shannon=2 14:31:13 History and physical on the chart or being dictated. Assessment: Initial Case, HR=64 BPM, Rhythm=NSR, SQLO=809/93 mmhg, Chest Pain=0, Edema=None, Color=Normal, Skin = Warm, Dry Right Pulses: Los Ped=2, Post Tib=2, Femoral=2 Left Pulses: Los Ped=2, Post Tib=2, Femoral=2 14:31:14 Lower Right Extremities: Color=Normal Lower Left Extremities: Color=Normal Neurological: State=Alert, Ox3, BALES Respiration: Resp=17 B/min, SpO2=99 % 14:33:36 HR=78 bpm, AXBD=607/92 mmhg, SpO2=99.0 %, Resp=17 B/min, Pain=0, Kevin=10, Shannon=2 14:34:51 Bilateral groins prepped with 2% chlorhexidine, and draped after a 3 minute waiting time. 14:38:00 HR=69 bpm, ZGYI=423/78 mmhg, SpO2=99.0 %, Resp=20 B/min, Pain=0, Kevin=10, Shannon=2 14:39:28 MD paged 14:40:33 MD responded 14:42:59 HR=67 bpm, VGBO=543/90 mmhg, SpO2=99.0 %, Resp=16 B/min, Pain=0, Kevin=10, Shannon=2 14:43:14 Pressure channel 1 zeroed. 14:47:02 MD arrived. 14:47:58 HR=76 bpm, OCYF=080/81 mmhg, SpO2=99.0 %, Resp=25 B/min, Pain=0, Kevin=10, Shannon=2 Time Out. Correct patient, correct procedure, correct physician, labs, allergies, and equipment verified with chemical laboratory scientist 14:48:12 team present. Fire risk assesment completed (see hard stop sheet for coding). Time Out Conc urred by MD and individual staff in procedure. 14:51:26 Case Start 20 mL 1% XYLOCAINE given in lab by Aleksey Rich in Right Groin via Subcutaneous. Ordered by Layla, 14:51:31 Aleksey. 14:51:42 1 mg VERSED given in lab by Neha Greenberg, LEISA in Left Antecubital via Peripheral IV. Orde red by Aleksey Rich. 14:52:43 Access site was Right Femoral Artery. 25 mcg FENTANYL given in lab by Neha Greenberg, RN in Left Antecubital via Peripheral IV. Orde red by Layla, 14:52:50 Aleksey. 14:52:57 A SHEATH, FR4 TERUMO (10CM) FR 4 was advanced into the Fem Art (right) using the Modified S eldinger technique. 14:52:59 HR=71 bpm, IJNB=361/83 mmhg, SpO2=98.0 %, Resp=16 B/min, Pain=0, Kevin=10, Shannon=2 A JR 4.0 INFINITI CATHETER FR 4 was advanced over a wire. OMNIPAQUE, 350 MG, 150ML 150ML was us ed for 14:53:41 injections. 14:55:00 1 mg VERSED given in lab by Neha Greenberg, LEISA in Left Antecubital via Peripheral IV. Orde red by Aleksey Rich. Recorded Pressure: LV, HR=79, Condition=Condition 1 14:55:13 (Left Ventricle) LV 140/10/21 14:55:18 The LV was injected at 10 cc/sec for a total of 10. OMNIPAQUE, 350 MG, 150ML 150ML used. Recorded Pressure: LV, Ao, HR=79, Condition=Condition 1 14:55:30 (Left Ventricle) LV 124/11/19, (Aorta) Ao 148/70/101 Recorded Pressure: Ao, HR=69, Condition=Condition 1 14:55:59 (Aorta) Ao 137/67/96 14:56:23 The RCA was injected and visualized at various angles. OMNIPAQUE, 350 MG, 150ML 150ML used . 14:56:31 Catheter was removed A JL 4.0 INFINITI CATHETER FR 4 was advanced over a wire. OMNIPAQUE, 350 MG, 150ML 150ML was us ed for 14:56:32 injections. 14:57:17 The LCA was injected and visualized at various angles. OMNIPAQUE, 350 MG, 150ML 150ML used . 14:57:56 HR=74 bpm, SZNE=434/76 mmhg, EzD3=477.0 %, Resp=18 B/min, Pain=0, Kevin=10, Shannon=2 15:00:20 Reference ECG taken 15:02:04 Catheter was removed 15:02:20 Dr Lizarraga notified, coming to see pt 15:02:55 HR=75 bpm, NJUB=351/77 mmhg, SpO2=98.0 %, Resp=15 B/min, Pain=0, Kevin=10, Shannon=2 15:03:45 Dr Lizarraga arrived 15:07:04 Case End 15:07:56 HR=66 bpm, GFXK=081/80 mmhg, SpO2=99.0 %, Resp=14 B/min, Pain=0, Kevin=10, Shannon=2 Assessment: Final Case, HR=70 BPM, Rhythm=NSR, BDQJ=812/80 mmhg, Chest Pain=0, Edema=None, Col or=Normal, Skin = Warm, Dry Right Pulses: Los Ped=2, Post Tib=2, Femoral=2 Left Pulses: Los Ped=2, Post Tib=2, Femoral=2 15:08:26 Lower Right Extremities: Color=Normal Lower Left Extremities: Color=Normal Neurological: State=Alert, Ox3, BALES Respiration: Resp=18 B/min, YmE6=247 % 15:10:15 Sheath removed; pressure applied to access site by MAGGY Payne 15:10:32 DOCU called. Spoke to LEISA Espino. Pt to go to [facility] 15:11:25 Bedside Report will be given. 15:11:28 No case complications noted. 15:11:29 Cine recording checked. 15:12:57 HR=66 bpm, VBFE=553/88 mmhg, SpO2=98.0 %, Resp=16 B/min, Pain=0, Kevin=10, Shannon=2 15:13:08 Verbal Stimulation=2 Physical Stimulation=2 Airway=2 Respiration=2 TOTAL=8. (0=absent, 1=l imited, 2=present) 15:17:56 HR=61 bpm, SNUN=496/83 mmhg, TpS3=380.0 %, Resp=15 B/min, Pain=0, Kevin=10, Shannon=2 15:22:57 HR=64 bpm, LXFX=204/83 mmhg, DvF5=832.0 %, Resp=14 B/min, Pain=0, Kevin=10, Shannon=2 15:25:47 Sterile dressing applied to site 15:26:00 A Left Heart Cath was performed. No bleeding or hematoma noted post sheath pull 15:27:11 Vitals capture stopped. 15:30:00 Patient moved to stretcher End Study - Contrast Media Used In Study Contrast Total Opened (mL) Total Used (mL) Total Wasted (mL) Omnipaque 150 20 130 End Study - Maximum Contrast Load Max Contrast Load (mL) 416.7 End Study - Radiation Exposure Fluoro Time (minutes) 1.3 End Study - Patient Disposition Complications Transferred To Interventional Outcome No Power Plant Mechanic Holding successful
--- NOTE | 2017-08-03 16:02 | MA ---
cc: Aleksey Rich MD DATE: 08/03/2017 PROCEDURE PERFORMED: Left heart catheterization, left ventriculography, coronary angiography. INDICATION: Non-STEMI, coronary artery disease, cardiomyopathy, CHF, [place] Heart Association class III congestive heart failure, [place] Cardiovascular Society class IV angina. PROCEDURE: The patient was brought to the cardiac catheterization laboratory, prepped and draped in the usual sterile fashion. 10 mL of 1% lidocaine was used to locally anesthetize the right common femoral artery. A 4-Brazilian sheath was placed in the right common femoral artery. A 4-Brazilian JR4, JL4 catheters were used to perform left and right coronary angiography, left ventriculography. FINDINGS: LV pressure is 140/11-15. Ejection fraction is 45%. The apex appears to be severely hypokinetic to akinetic. Mid ventricle and basal ventricle is hyperdynamic. Right coronary artery is dominant, calcified fluoroscopically in the proximal mid segment. A kumar's crook in the proximal segment, long 70% stenosis in the proximal mid segment. Distal segment has a 75-80% stenosis. Right PDA and JOVI have mild diffuse disease up to 30% angiographically. PDA is a small vessel, 1.5 mm in diameter. JOVI is reference vessel diameter in the proximal segment of 225 mm tapering down to a 202, then a 1.0 vessel in the more distal segments. The left main coronary has a distal at least 60% stenosis best appreciated in the extreme AP cranial view. Left circumflex vessel has no significant disease angiographically. First obtuse marginal vessel is medium to large size vessel. Reference vessel diameter 2.75 mm in diameter with a proximal 75% stenosis. The second obtuse marginal vessel is a relatively small vessel, reference vessel diameter approximately 2 mm. There is a long 80% stenosis beyond this, the reference vessel diameter appears to be 1-1.5 mm. The left main is fibrocalcific fluoroscopically and is at least 60 to perhaps 70% distal stenosis. The LAD has an ostial 80% stenosis. There is a medium size ramus intermedius vessel which has a long 90% stenosis, reference vessel diameter 2.5 mm. The first diagonal artery is a small to medium sized vessel, reference vessel diameter 2.5 mm proximal 50% stenosis. The mid LAD beyond the first diagonal artery has 50% stenosis and up to 60% stenosis at a bifurcation with a small to medium size septal branch. The LAD is very tortuous. There is a sequential 60-70% stenosis in the mid LAD, distal LAD has a 95% stenosis. Two small diagonal arteries come off the mid to distal LAD. The LAD is transapical. CONCLUSION: 1. Severe left main and 3-vessel coronary disease in a right dominant system as detailed above. 2. Mildly reduced LV systolic function of 45% with severe hypokinesis to akinesis of the apex. 3. Diabetes mellitus. RECOMMENDATIONS: 1. Recommend CABG. 2. I have discussed the case and reviewed the films with Dr. Lizarraga. He agrees to accept the patient for CABG. 3. We will get a preop 2D echo and carotid ultrasound given the patient's history of diabetes, multiple cardiac risk factors. 4. We will hold the patient's metformin for 48 hours post-procedure. 5. We will check fasting lipids, LFTs, CK per NCEP guidelines. Continue aspirin and treat with beta blockers if hemodynamically and clinically tolerated. MD KEVIN Rios/TL , 03:17 PM , 04:01 PM
[2017-08-03] MEDS ORDERED: ceFAZolin 2 GM PREMIX 50 ML IV SCH (16:30)
[2017-08-03] MEDS ORDERED: INSULIN REGULAR (IV INFUSION) 100 UNITS in SODIUM CHLORIDE 0.9% INJ 99 ML IV PRN (16:30)
[2017-08-03] MEDS ORDERED: METOPROLOL TARTRATE 25 MG TAB PO SCH (16:30)
[2017-08-03] MEDS ORDERED: CEFAZOLIN INJ 500 MG in SODIUM CHLORIDE 0.9% IRR BTL 500 ML IRRIGATION SCH (16:30)
[2017-08-03] MEDS ORDERED: DEXTROSE 50% IN WATER 50 ML VIAL(D50) IV PUSH PRN ×2 (16:30→17:15)
[2017-08-03] MEDS ORDERED: CHLORHEXIDINE GLUCONATE 4% SOLN 120 ML BTL TOPICAL SCH (16:30)
[2017-08-03] MEDS ORDERED: PAPAVERINE INJ 60 MG, NITROGLYCERIN INJ 100 MCG, VERAPAMIL INJ 100 MG in SODIUM CHLORID... IRRIGATION SCH (16:30)
[2017-08-03] MEDS ORDERED: IOHEXOL 350 MG/ML 50 ML BTL (for Cath Lab) OTHER ONE (16:56)
[2017-08-03] MEDS ORDERED: cloNIDine HCL 0.1 MG TAB PO PRN (17:15)
[2017-08-03] MEDS ORDERED: GLUCAGON 1 MG/ML VIAL OTHER PRN (17:15)
--- NOTE | 2017-08-03 17:33 | MB ---
cc: Lili Nayak Jacqueline R ARNP DATE: 08/03/2017 HISTORY OF PRESENT ILLNESS: A 71-year-old patient with history of hypertension, osteoarthritis who was recently seen in the emergency department on 08/01 for left shoulder pain. They did an x-ray which showed moderate to severe osteoarthritis. She was sent home on Mobic. She said the pain is a constant ache exacerbated with movement. She went to see her primary care physician, Dr. Emerson, who sent her here for cardiac workup. Her EKG did show some poor R-wave progression. Her troponin was 0.11. She was ruled in for a non-STEMI and she went to the labour market economist, per Dr. Rich, which showed ejection fraction of 45%, left main disease of 60%, proximal LAD 95%, mid distal LAD 95%, OM 75%, the RCA 75%. We were consulted to evaluate for coronary artery bypass grafting. PAST MEDICAL HISTORY: Includes hypertension, osteoarthritis, diabetes mellitus, hypothyroidism, hyperlipidemia and COPD. PAST SURGICAL HISTORY: Include bilateral corneal implants, cataract surgery, tonsillectomy, left knee arthroscopic surgery. She has had a goiter removed on her right neck in the past. ALLERGIES: NO KNOWN ALLERGIES HOME MEDICATIONS: 1. Mobic 2. Baclofen. 3. Gabapentin. 4. Tramadol. 5. Glipizide. 6. Metformin. 7. Lisinopril. 8. Amlodipine. 9. Synthroid. 10. Combivent inhaler. FAMILY HISTORY: Coronary artery disease. SOCIAL HISTORY: , 5 children, lives with her daughter. She has been smoking for 50 years. Smokes 2 packs per week. Rare alcohol. 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 REVIEW OF SYSTEMS: GENERAL: No night sweats, fever, heat and cold intolerance. SKIN: No psoriasis, itching or hives. HEENT: No blurred vision, hearing loss. RESPIRATORY: Occasional shortness of breath. CARDIOVASCULAR: As above in the HPI. GASTROINTESTINAL: No diarrhea or vomiting. GENITOURINARY: No burning, frequency, urgency. CENTRAL NERVOUS SYSTEM: No history of TIA, CVA or seizure disorder. ENDOCRINOLOGY: Positive for hypothyroidism. PHYSICAL EXAMINATION: VITAL SIGNS: Blood pressure 140/90, heart rate of 80, room air sat 99. GENERAL: Awake, alert, in no acute distress. HEENT: Head is normocephalic, atraumatic. Pupils equal and reactive. Oral mucosa pink, moist. NECK: Supple. No JVD. CARDIOVASCULAR: Sounds S1, S2. Regular rate and rhythm. No audible rubs, murmurs, or gallops. LUNGS: Clear to auscultation. No wheezes, rales, or rhonchi. ABDOMEN: Soft, nontender. No masses or organomegaly. EXTREMITIES: No cyanosis, clubbing, or edema. LABORATORY DATA: Shows a hemoglobin of 13, hematocrit of 40, white cell count of 5.1, platelet count of 201. Sodium 143, potassium 4.3, BUN of 14, creatinine 0.91, AST 53, ALT 106. Troponin 0.01. INR 0.9. IMAGING STUDIES: Shows mildly tortuous aorta, otherwise unremarkable. CARDIOLOGY STUDIES: EKG as above. ASSESSMENT AND PLAN: This is a 71-year-old female admitted with a non ST elevation myocardial infarction, underwent cardiac catheterization with 2 vessel disease. The patient's cardiac films have been evaluated by Dr. Rupali Lizarraga. Procedures, alternatives and risks discussed with the patient. We will proceed with surgery on Tuesday. In the meantime, she has 2-Dimensional echocardiogram pending. She has further cardiac procedures pending for preop surgery. I discussed this in front of her sister and the daughter. They are agreeable to proceed. STS data will be documented in the electronic record. HAL Garza MD JRT/ , 04:36 PM , 05:32 PM
[2017-08-03] MEDS ORDERED: ACETAMINOPHEN/HYDROcodone 325 MG/10 MG TAB PO PRN (18:00)
[2017-08-03] MEDS ORDERED: NON-FORMULARY DRUG (Ipratropium-Albuterol Inh (Combivent Respimat Inh) 1 PUFF) INH SCH (18:00)
[2017-08-03] MEDS ORDERED: ACETAMINOPHEN/HYDROcodone 325 MG/5 MG TAB PO PRN (18:00)
[2017-08-03] MEDS ORDERED: GABAPENTIN 300 MG CAP PO SCH (18:00)
[2017-08-03] MEDS ORDERED: ALBUTEROL SULFATE 90 MCG/ACT HFA 18 GM INHALER INH SCH (18:00)
--- NOTE | 2017-08-03 18:04 | PD.CONS ---
HPI Service [facility] Consult Requested By Primary Care Physician Cole Emerson MD Diagnoses: History of Present Illness Mrs. Welch is a 71-year-old female. She has a history of diabetes mellitus type 2. She came in secondary to chest pain. She is found on heart cath to have multivessel disease. CABG of 3 vessels is recommended. Patient will have the surgery in 2 days. She is not having any chest symptoms when seen this afternoon. She does complain of left shoulder pain which is osteoarthritic in nature and hurts with range of motion. Blood pressures are also elevated. No other complaints at this time. Review of Systems Constitutional: DENIES: Fatigue, Fever, Chills Eyes: DENIES: Blurred vision, Diplopia, Eye inflammation, Eye pain Ears, nose, mouth, throat: DENIES: Hearing loss, Vertigo, Nasal discharge Respiratory: DENIES: Cough, Wheezing, Shortness of breath Cardiovascular: DENIES: Chest pain, Palpitations, Syncope Gastrointestinal: DENIES: Black stools, Bloody stools, Constipation, Diarrhea Musculoskeletal: COMPLAINS OF: Joint pain, DENIES: Muscle aches, Stiffness, Joint Swelling Integumentary: DENIES: Abnormal pigmentation, Pruritus, Rash, Nail changes Hematologic/lymphatic: DENIES: Bruising, Lymphadenopathy Immunologic/allergic: DENIES: Eczema, Urticaria Neurologic: DENIES: Abnormal gait, Headache, Paresthesias Psychiatric: DENIES: Anxiety, Confusion, Hallucinations Past Family Social History Allergies: Coded Allergies: No Known Allergies (Unverified Adverse Reaction, Unknown, 08/03/17) Past Medical History Osteoarthritis Diabetes mellitus type 2 Hypothyroidism Hypertriglyceridemia Hypertension Past Surgical History Tonsillectomy Bilateral eye surgery Reported Medications Reported Meds & Active Scripts Active Mobic (Meloxicam) 7.5 Mg Tab 7.5 Mg PO DAILY PRN Baclofen 10 Mg Tab 10 Mg PO HS Gabapentin 300 Mg Cap 300 Mg PO TID Tramadol (Tramadol HCl) 50 Mg Tab 50 Mg PO Q8H PRN Glipizide 5 Mg Tab 2.5 Mg PO BID Take 30 minutes before a meal Metformin (Metformin HCl) 500 Mg Tab 500 Mg PO BIDPC With meals Lisinopril 40 Mg Tab 40 Mg PO DAILY Amlodipine (Amlodipine Besylate) 5 Mg Tab 5 Mg PO DAILY Synthroid (Levothyroxine Sodium) 200 Mcg Tab 200 Mcg PO DAILY Combivent Respimat Inh (Ipratropium-Albuterol Inh) 20-100 Nursing Home/Act Aero 1 Puff INH QID Reported Pred Forte Opth 1% (Prednisolone Acetate Opth 1%) 1% Susp 1 Drop EACH EYE DAILY Aspirin 81 Mg Chew 81 Mg CHEW DAILY Proventil Hfa 6.7 GM Inh (Albuterol Sulfate) 90 Mcg/Act Aer 1 Puff INH Q4-6H PRN Family History Coronary artery disease in father Social History Alcohol Use: Yes (occ) Tobacco Use: Yes Substance Use: No Physical Exam Vital Signs Vital Signs Date Time Temp Pulse Resp B/P (MAP) Pulse Ox O2 Delivery O2 Flow Rate FiO2 08/03/17 17:00 60 08/03/17 16:51 98.0 67 20 174/78 (110) 98 08/03/17 16:45 68 08/03/17 15:36 91 Nasal Cannula 2.00 08/03/17 14:21 08/03/17 11:52 99 Room Air 08/03/17 11:52 99 Room Air 08/03/17 11:47 80 20 99 Room Air 08/03/17 11:47 78 18 141/92 (108) 99 Room Air 08/03/17 11:36 98.5 77 16 121/65 (83) 97 Physical Exam GENERAL: NAD, A&Ox3 HEAD: Normocephalic. NECK: Supple, trachea midline. No lymphadenopathy. EYES: No scleral icterus. No injection or drainage. CARDIOVASCULAR: Regular rate and rhythm without murmurs, gallops, or rubs. RESPIRATORY: Breath sounds equal bilaterally. No accessory muscle use. GASTROINTESTINAL: Abdomen soft, non-tender, nondistended. MUSCULOSKELETAL: No cyanosis, or edema. SKIN: Warm and dry. NEURO: No focal neurological deficitis. Laboratory Laboratory Tests Test 08/03/17 11:55 White Blood Count 5.3 Red Blood Count 4.25 Hemoglobin 13.6 Hematocrit 40.1 Mean Corpuscular Volume 94.2 Mean Corpuscular Hemoglobin 31.9 Mean Corpuscular Hemoglobin Concent 33.9 Red Cell Distribution Width 13.9 Platelet Count 201 Mean Platelet Volume 9.2 Neutrophils (%) (Auto) 52.6 Lymphocytes (%) (Auto) 37.0 Monocytes (%) (Auto) 7.2 Eosinophils (%) (Auto) 2.6 Basophils (%) (Auto) 0.6 Neutrophils # (Auto) 2.8 Lymphocytes # (Auto) 1.9 Monocytes # (Auto) 0.4 Eosinophils # (Auto) 0.1 Basophils # (Auto) 0.0 CBC Comment DIFF FINAL Differential Comment Prothrombin Time 9.5 Prothromb Time International Ratio 0.9 Activated Partial Thromboplast Time 23.8 Blood Urea Nitrogen 14 Creatinine 0.91 Random Glucose 85 Total Protein 7.2 Albumin 3.4 Calcium Level 8.5 Magnesium Level 2.0 Alkaline Phosphatase 165 Aspartate Amino Transf (AST/SGOT) 53 Alanine Aminotransferase (ALT/SGPT) 106 Total Bilirubin 0.2 Sodium Level 143 Potassium Level 4.3 Chloride Level 107 Carbon Dioxide Level 26.0 Anion Gap 10 Estimat Glomerular Filtration Rate 74 Total Creatine Kinase 77 Troponin I 0.11 Result Diagram: 08/03/17 1155 08/03/17 1155 Imaging Last Impressions Chest X-Ray 08/03/17 1150 Signed Impressions: CONCLUSION: No acute findings. Mildly tortuous aorta. Assessment and Plan Problem List: (1) Chest pain at rest ICD Code: R07.9 - Chest pain, unspecified Status: Acute (2) Elevated troponin ICD Code: R74.8 - Abnormal levels of other serum enzymes Status: Acute (3) NSTEMI (non-ST elevated myocardial infarction) ICD Code: I21.4 - Non-ST elevation (NSTEMI) myocardial infarction Status: Acute Assessment and Plan 71-year-old female admitted secondary to chest pain. Cardiac cath today shows multivessel disease. CABG 3 recommended. Coronary artery disease Plan for CABG 3 in 2 days Cardiology following Cardiothoracic surgeon consulted Continue treating chest pain as needed Diabetes mellitus type 2 Follow blood sugars Insulin sliding scale Diabetic diet Hypertension Continue baseline treatment Follow blood pressures Adjust treatments as needed Resume baseline treatments As needed clonidine for now Osteoarthritis As needed [place] Hypothyroidism Check TSH, T3, and T4 Hypertriglyceridemia Continue present treatment Follow as an outpatient DVT prophylaxis Heparin Mynor Patrick MD August 03, 2017 18:04
[2017-08-03] MEDS ORDERED: NITROGLYCERIN/DEXTROSE 5% 250 ML for chest pain IV PRN (18:45)
[2017-08-03 18:57] LABS: HEMOGLOBIN A1C 5.8 % (4.3-6.0)
[2017-08-03] MEDS: HEPARIN 25,000 UNITS-D5W 250 ML - PREMIX IV PRN (18:57)
[2017-08-03 19:14] LABS: PHOSPHORUS 3.9 MG/DL (2.5-4.9)
--- NOTE | 2017-08-03 19:15 | MB ---
cc: Aleksey Rich MD, Arthur W MD DATE: 08/03/2017 HISTORY OF PRESENT ILLNESS: Casandra is a very pleasant 71-year-old lady with history of diabetes who has been developing chest pain for several days prior to admission. She also notes severe dyspnea on exertion with minimal activities of daily living. Otherwise, denies any fever, chills, cough, GI or bleeding, PND, orthopnea, syncope, or dizziness. She has 10/10 left shoulder pain. PAST MEDICAL HISTORY: Includes arthritis, hypertension, hyperlipidemia, thyroid disease. She has also had a tonsillectomy and eye surgery. SOCIAL HISTORY: Drinks alcohol occasionally. She does smoke. ALLERGIES: NONE. MEDICATIONS PRIOR TO ADMISSION: 1. Mobic 2. Baclofen. 3. Gabapentin. 4. Tramadol. 5. Glipizide. 6. Metformin. 7. Lisinopril 40 daily. 8. Amlodipine 5 mg daily. 9. Synthroid. 10. Combivent 11. Pred forte 12. Aspirin 81 mg a day. 13. Proventil. PHYSICAL EXAMINATION: VITAL SIGNS: Blood pressure 174/78, pulse 60, temperature 98, respiratory rate is 20, saturations 98% on room air. GENERAL: She is alert and oriented x3, in no acute distress. NECK: Supple. No JVD. No bruit. CARDIOVASCULAR: S1, S2. No murmurs, rubs or gallops. LUNGS: Clear to auscultation bilaterally. ABDOMEN: Soft, nontender, nondistended with positive bowel sounds. EXTREMITIES: No lower extremity edema. IMAGING STUDIES: Chest x-ray shows no acute findings. Mildly tortuous aorta. LABORATORY DATA: White count 5.3, hemoglobin 13.6, hematocrit 40.1, platelet count is 201. Sodium 143, potassium 4.3, chloride 107, bicarbonate 26.0, BUN 14, creatinine 0.91. AST 53, ALT 106. Troponin is 0.11. INR is 0.9. CARDIOLOGY STUDIES: EKG shows normal sinus rhythm at 70 beats per minute, inferior Q-waves, late R-wave transition. ASSESSMENT: 1. [id number] myocardial infarction. 2. Diabetes mellitus. 3. Hypertension. 4. Tobacco abuse. 5. Elevated liver enzymes. DISCUSSION: The patient has multiple cardiac risk factors and a non-ST elevation myocardial infarction, therefore, left heart catheterization is medically necessary. Plan is for urgent left heart catheterization. MD KEVIN Rios/ , 06:44 PM , 07:14 PM
[2017-08-03 19:17] LABS: TROPONIN I 0.11 NG/ML (0.02-0.05)
[2017-08-03] MEDS ORDERED: HEPARIN SODIUM - IV 10,000 UNITS/10 ML VIAL IV PUSH PRN ×2 (19:30)
--- NOTE | 2017-08-03 19:49 | HHI.HP ---
[facility] Service Family Medicine Primary Care Physician Cole Emerson MD Admission Diagnosis Chest Pain with elevated Troponin Diagnoses: International Travel<30 Days: No Contact w/Intl Traveler<30days: No Known Affected Area: No History of Present Illness Ms. Welch is a 71-year-old female presenting to the ED with a chief complaint of left shoulder and chest pain for approximately 4 days. She describes the pain as a "strong pressure" is located at the mid sternum that radiates up her left shoulder and down her arm. She states that intermittently she does have shortness of breath secondary to her pain, but denies any diaphoresis or nausea/ vomiting. She scores the pain at a 10/10 at its worst, but is currently a 5/ 10. She states that she has been having this pain with and without exertion. She states that she was seen earlier this week for left shoulder pain, but was discharged home after being diagnosed with osteoarthritis and prescribed meloxicam. She states that her pain continued and contacted her PCP, Dr. Lukasz Emerson, today who recommended her to present to the ED for further evaluation. Patient was evaluated in the emergency department and diagnosed with an NSTEMI with elevated troponin. Cardiology was called who recommended catheterization. Catheterization was performed today showing severe two-vessel disease. Cardiovascular surgery was then consulted and plans for CABG on 08/05/17. (Eduardo Godoy MD R2) Review of Systems Constitutional: DENIES: Fever, Weight loss, Chills, Dizziness Eyes: DENIES: Blurred vision, Double Vision Ears, nose, mouth, throat: DENIES: Throat pain, Running Nose Respiratory: COMPLAINS OF: Shortness of breath, DENIES: Cough Cardiovascular: COMPLAINS OF: Chest pain, Dyspnea on Exertion, DENIES: Palpitations, Syncope Gastrointestinal: DENIES: Abdominal pain, Diarrhea, Nausea, Vomiting Genitourinary: DENIES: Urinary incontinence, Dysuria Musculoskeletal: COMPLAINS OF: Joint pain, Back pain, Neck pain Hematologic/lymphatic: DENIES: Lymphadenopathy Immunologic/allergic: DENIES: Urticaria Neurologic: DENIES: Headache Psychiatric: DENIES: Mood changes (Eduardo Godoy MD R2) Past Family Social History Past Medical History HTN DM COPD Hypothyroidism Osteoarthritis Past Surgical History Goiter removed-2010 Cataract surgery bilaterally, left cornea surgery Left knee arthroscopy (Eduardo Godoy MD R2) Allergies: Coded Allergies: No Known Allergies (Unverified Adverse Reaction, Unknown, 08/03/17) Family History Father-AR Mother-unknown Sister-cancer Social History Marital Status: Single Living Situation: Living with daughter Education: 11th grade 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 Tobacco: 1 pack/3 days Alcohol: No reported history Illicit drug use: marijuana daily, cocaine 1x/month (Eduardo Godoy MD R2) Physical Exam Vital Signs Vital Signs Date Time Temp Pulse Resp B/P (MAP) Pulse Ox O2 Delivery O2 Flow Rate FiO2 08/03/17 19:09 19 08/03/17 19:09 18 08/03/17 19:07 75 184/87 08/03/17 18:57 68 183/80 08/03/17 18:49 71 154/70 08/03/17 18:00 62 08/03/17 17:00 60 08/03/17 16:51 98.0 67 20 174/78 (110) 98 08/03/17 16:45 68 08/03/17 15:36 91 Nasal Cannula 2.00 08/03/17 14:21 08/03/17 11:52 99 Room Air 08/03/17 11:52 99 Room Air 08/03/17 11:47 80 20 99 Room Air 08/03/17 11:47 78 18 141/92 (108) 99 Room Air 08/03/17 11:36 98.5 77 16 121/65 (83) 97 Physical Exam GENERAL: Elderly female lying in bed with daughter at bedside in no acute distress. SKIN: No rashes, ecchymoses or lesions. Cool and dry. R Groin: Right groin area with CDI sterile bandage S/P cardiac catheterization. No warmth, erythema, or hemorrhage appreciated. HEENT: Atraumatic, normocephalic with EOMI. PERRLA. Oropharynx clear. No rhinorrhea. No visible LAD or JVD appreciated. CARDIOVASCULAR: Bradycardic rate with regular rhythm. No MGR appreciated. 2+ pulses in all 4 extremities. RESPIRATORY: Bilateral crackles at the bases. Nonproductive cough throughout exam. No increased work of breathing at this time. GASTROINTESTINAL: Abdomen soft, non-tender, nondistended with positive bowel sounds. No hepatosplenomegaly appreciated. MUSCULOSKELETAL: Extremities without cyanosis or edema.. No calf tenderness. RUE: Right shoulder pain to palpation as well as limited range of motion due to pain. Neurovascularly intact. NEUROLOGICAL: Grossly normal. AAO 3. Normal speech and judgment. Patient ambulating with cane per report. Laboratory Laboratory Tests Test 08/03/17 11:55 08/03/17 18:25 08/03/17 18:35 White Blood Count 5.3 Red Blood Count 4.25 Hemoglobin 13.6 Hematocrit 40.1 Mean Corpuscular Volume 94.2 Mean Corpuscular Hemoglobin 31.9 Mean Corpuscular Hemoglobin Concent 33.9 Red Cell Distribution Width 13.9 Platelet Count 201 Mean Platelet Volume 9.2 Neutrophils (%) (Auto) 52.6 Lymphocytes (%) (Auto) 37.0 Monocytes (%) (Auto) 7.2 Eosinophils (%) (Auto) 2.6 Basophils (%) (Auto) 0.6 Neutrophils # (Auto) 2.8 Lymphocytes # (Auto) 1.9 Monocytes # (Auto) 0.4 Eosinophils # (Auto) 0.1 Basophils # (Auto) 0.0 CBC Comment DIFF FINAL Differential Comment Prothrombin Time 9.5 Prothromb Time International Ratio 0.9 Activated Partial Thromboplast Time 23.8 Blood Urea Nitrogen 14 Creatinine 0.91 Random Glucose 85 Total Protein 7.2 Albumin 3.4 Calcium Level 8.5 Magnesium Level 2.0 Alkaline Phosphatase 165 Aspartate Amino Transf (AST/SGOT) 53 Alanine Aminotransferase (ALT/SGPT) 106 Total Bilirubin 0.2 Sodium Level 143 Potassium Level 4.3 Chloride Level 107 Carbon Dioxide Level 26.0 Anion Gap 10 Estimat Glomerular Filtration Rate 74 Total Creatine Kinase 77 65 Troponin I 0.11 0.11 Hemoglobin A1c 5.8 Phosphorus Level 3.9 Thyroid Stimulating Hormone 3rd Gen 0.014 (Eduardo Godoy MD R2) Result Diagram: 08/03/17 1155 08/03/17 1155 Imaging Last 72 hours Impressions Chest X-Ray 08/03/17 1150 Signed Impressions: CONCLUSION: No acute findings. Mildly tortuous aorta. Lower Extremity Ultrasound 08/03/17 0000 Signed Impressions: CONCLUSION: 1. Lower extremity venous mapping, as above. Lower Extremity Ultrasound 08/03/17 0000 Signed Impressions: CONCLUSION: 1. No evidence of DVT. 2. Left-sided Jackson's cyst in the left popliteal fossa measuring 3.5 cm.. Carotid Artery Ultrasound 08/03/17 0000 Signed Impressions: CONCLUSION: 1. Right Internal Carotid Artery: Findings indicate <50% stenosis. 2. Left Internal Carotid Artery: Findings indicate <50% stenosis. (Eduardo Godoy MD R2) Caprini VTE Risk Assessment Caprini VTE Risk Assessment: Mod/High Risk (score >= 2) Caprini Risk Assessment Model Point Value = 1 Point Value = 2 Point Value = 3 Point Value = 5 Age 41-60 Minor surgery BMI > 25 kg/m2 Swollen legs Varicose veins or History of unexplained or recurrent spontaneous Oral contraceptives or hormone replacement Sepsis (< 1 month) Serious lung disease, including pneumonia (< 1 month) Abnormal pulmonary function Acute myocardial infarction Congestive heart failure (< 1 month) History of inflammatory bowel disease Medical patient at bed rest Age 61-74 Arthroscopic surgery Major open surgery (> 45 min) Laparoscopic surgery (> 45 min) Malignancy Confined to bed (> 72 hours) Immobilizing plaster cast Central venous access Age >= 75 History of VTE Family history of VTE Factor V Leiden Prothrombin [id number] Lupus anticoagulant Anticardiolipin antibodies Elevated serum homocysteine Heparin-induced thrombocytopenia Other congenital or acquired thrombophilia Stroke (< 1 month) Elective arthroplasty Hip, pelvis, or leg fracture Acute spinal cord injury (< 1 month) Prophylaxis Regimen Total Risk Factor Score Risk Level Prophylaxis Regimen 0-1 Low Early ambulation 2 Moderate Order ONE of the following: *Sequential Compression Device (SCD) *Heparin 5000 units SQ BID 3-4 Higher Order ONE of the following medications: *Heparin 5000 units SQ TID *Enoxaparin/Lovenox 40 mg SQ daily (WT < 150 kg, CrCl > 30 mL/min) *Enoxaparin/Lovenox 30 mg SQ daily (WT < 150 kg, CrCl > 10-29 mL/min) *Enoxaparin/Lovenox 30 mg SQ BID (WT < 150 kg, CrCl > 30 mL/min) AND/OR *Sequential Compression Device (SCD) 5 or more Highest Order ONE of the following medications: *Heparin 5000 units SQ TID (Preferred with Epidurals) *Enoxaparin/Lovenox 40 mg SQ daily (WT < 150 kg, CrCl > 30 mL/min) *Enoxaparin/Lovenox 30 mg SQ daily (WT < 150 kg, CrCl > 10-29 mL/min) *Enoxaparin/Lovenox 30 mg SQ BID (WT < 150 kg, CrCl > 30 mL/min) AND *Sequential Compression Device (SCD) (Eduardo Godoy MD R2) Assessment and Plan Assessment and Plan Ms. Welch is a 71-year-old female presenting with chest pain found to have severe two-vessel disease admitted for coronary artery bypass grafting. Code Status Full Code (Eduardo Godoy MD R2) Attending Attestation THIS CASE WAS DISCUSSED WITH THE RESIDENT PHYSICIANS. I HAVE REVIEWED THE RECORD AND AGREE WITH THE ABOVE NOTE AND PLAN OF CARE WAS DISCUSSED. I HAVE AUTHORIZED THE ORDER FOR ADMISSION TO AN IN-PATIENT STATUS. (Trevor Moore MD) Problem List: (1) Coronary artery disease with unstable angina pectoris ICD Codes: I25.110 - Atherosclerotic heart disease of [place] coronary artery with unstable angina pectoris Status: Acute Plan: -EKG: Sinus rhythm with Q waves of the inferior leads and poor R wave progression (NSTEMI) -Troponin: 0.11 -Cardiac catheterization: EF of 45%, mid distal LAD 95% disease, proximal LAD and 95% disease -Cardiology consulted, appreciate recommendations -Cardiothoracic surgery consulted who recommends CABG, appreciate recommendations -Tentative plan for procedure on 08/05/17 -2D echocardiogram and venous mapping ordered Medications: -Carvedilol 3.125 mg twice daily -Heparin drip per protocol -Nitroglycerin drip per protocol -Daily aspirin -Morphine as needed for pain -Oxygen as needed (2) LFT elevation ICD Codes: R79.89 - Other specified abnormal findings of blood chemistry Status: Acute Plan: -CMP: AST 53 ALT 106; repeat ordered in AM -Continue to monitor -Possibly related to illicit drug use -Hold statin at this time -Per chart review, no previous studies available (3) Bibasilar crackles ICD Codes: R09.89 - Other specified symptoms and signs involving the circulatory and respiratory systems Status: Acute Plan: -Bibasilar crackles appreciated on exam -Patient with nonproductive cough during exam with oxygen saturation at 93% -No history reported per chart review of CHF -Chest x-ray: No acute findings -Incentive spirometry ordered Medications: -Lasix 40 mg 1 (4) Diabetes mellitus ICD Codes: E11.9 - Type 2 diabetes mellitus without complications Status: Chronic Plan: -CMP: Glucose 85 -A1c: 5.8 Medications: -Hold metformin and glipizide -Sliding scale insulin per protocol (5) COPD (chronic obstructive pulmonary disease) ICD Codes: J44.9 - Chronic obstructive pulmonary disease, unspecified Status: Chronic Plan: Medications: -Albuterol twice daily -Spiriva daily -DuoNeb as needed for shortness of breath (6) Hypertension ICD Codes: I10 - Essential (primary) hypertension Status: Chronic Plan: Medications: -Continue amlodipine 5 mg daily -Continue lisinopril 40 mg daily -Continue gabapentin 300 mg 3 times daily -Clonidine as needed for blood pressure greater than 160/90 (7) Osteoarthritis ICD Codes: M19.90 - Unspecified osteoarthritis, unspecified site Status: Chronic Plan: Medications: -Continue baclofen 10 mg daily -Hold Mobic -Hold tramadol -Morphine as needed as above (8) Hypothyroidism ICD Codes: E03.9 - Hypothyroidism, unspecified Status: Chronic Plan: -TSH: Pending Medications: -Levothyroxine 200 mcg daily (9) Hyperlipidemia ICD Codes: E78.5 - Hyperlipidemia, unspecified Status: Chronic Plan: -Lipid profile: Pending Medications: -Defer statin at this time as LFTs are elevated (continue to monitor) (10) Tobacco abuse ICD Codes: Z72.0 - Tobacco use Status: Acute Plan: -Thoroughly educated patient risks of tobacco abuse -Patient declines nicotine patch at this time (11) Illicit drug use ICD Codes: F19.90 - Other psychoactive substance use, unspecified, uncomplicated Status: Acute Plan: -UDS: Positive for benzodiazepines, cocaine, and cannabinoids -Patient previously administered beta-ligia despite cocaine use; continue to monitor (12) No contraindication to deep vein thrombosis (DVT) prophylaxis ICD Codes: Z78.9 - Other specified health status Status: Acute Plan: -Heparin drip per protocol -SCDs (13) Nutrition, metabolism, and development symptoms ICD Codes: R63.8 - Other symptoms and signs concerning food and fluid intake Status: Acute Plan: -Diet: Heart healthy as tolerated -Fluids: Patient appears hydrated on exam heparin and nitro glycerin infusions per protocol -Electrolytes: Within normal limits, continue to monitor -Prophylaxis: Clonidine as needed for BP greater than 160/90, morphine as needed for pain, Zofran as needed for nausea/vomiting, constipation protocol, famotidine as needed for reflux (Eduardo Godoy MD R2) Physician Certification 2 Midnight Certification Type: Admission for Inpatient Services Order for Inpatient Services The services are ordered in accordance with Medicare regulations or non- Medicare payer requirements, as applicable. In the case of services not specified as inpatient-only, they are appropriately provided as inpatient services in accordance with the 2-midnight benchmark. Estimated LOS (days): 3 3 days is the estimated time the patient will need to remain in the hospital, assuming treatment plan goals are met and no additional complications. Post-Hospital Plan: Home (Eduardo Godoy MD R2) Problem Qualifiers (1) Coronary artery disease with unstable angina pectoris: Qualified Codes: I25.110 - Atherosclerotic heart disease of [place] coronary artery with unstable angina pectoris (2) Diabetes mellitus: Qualified Codes: E11.69 - Type 2 diabetes mellitus with other specified complication (3) COPD (chronic obstructive pulmonary disease): Qualified Codes: J43.9 - Emphysema, unspecified (4) Hypertension: Qualified Codes: I10 - Essential (primary) hypertension (5) Osteoarthritis: Qualified Codes: M15.0 - Primary generalized (osteo)arthritis (6) Hypothyroidism: Qualified Codes: E89.0 - Postprocedural hypothyroidism (7) Hyperlipidemia: Qualified Codes: E78.2 - Mixed hyperlipidemia Eduardo Godoy MD R2 August 03, 2017 19:49 Trevor Moore MD August 04, 2017 10:17
--- NOTE | 2017-08-03 19:55 | RADRPT ---
EXAM DATE: 08/03/2017 7:52 PM EDT AGE/SEX: 71 years / Female INDICATIONS: Pre-Op Cardiac Bypass. CLINICAL DATA: This is the patient's initial encounter. Patient reports that signs and symptoms have been present for 1 day and indicates a pain score of 2/10. MEDICAL/SURGICAL HISTORY: Hypercholesterolemia. Hypertension. Arthritis. Diabetes. Tonsil lectomy. Left knee surgery. Goiter removal. COMPARISON: No prior [facility] exams available for comparison. No external comparison. MEASUREMENTS: RIGHT THIGH: Proximal:__7 mm Mid:__ 4 mm Distal:__3 mm LEFT THIGH: Proximal:__7 mm Mid:__6 mm Distal:__3 mm RIGHT CALF: Proximal:__4 mm Mid:__2 mm Distal:__3 mm LEFT CALF: Proximal:__5 mm Mid:__3 mm Distal:__3 mm FINDINGS: The venous system of the lower extremities are patent by color Doppler imaging. Measurements of the leg veins (in mm) are listed above. CONCLUSION: 1. Lower extremity venous mapping, as above. Electronically signed by: Markus Vale MD 08/03/2017 7:53 PM EDT
--- NOTE | 2017-08-03 19:59 | RADRPT ---
EXAM DATE: 08/03/2017 7:54 PM EDT AGE/SEX: 71 years / Female INDICATIONS: Pre-op cardiac surgery. CLINICAL DATA: This is the patient's initial encounter. Patient reports that signs and symptoms have been present for 1 day and indicates a pain score of 2/10. MEDICAL/SURGICAL HISTORY: Hypercholesterolemia. Hypertension. Diabetes. Arthritis. Tonsille ctomy. Left knee surgery. Goiter removal. COMPARISON: No prior [place] exams available for comparison. No external comparison. TECHNIQUE: Venous ultrasound of both lower extremities was performed from the inguinal ligament to t he proximal calf. Real-time, color Doppler and spectral tracing, compression and augmentation techni ques were used. FINDINGS: Right Leg: There is normal compressibility of the deep venous system from the inguinal region to the proximal calf. No echogenic clot is seen in the lumen of the common femoral, femoral, popliteal, an d posterior tibial veins. There is a normal response of the venous system to proximal and distal aug mentation and respiration. Left Leg: There is normal compressibility of the deep venous system from the inguinal region to the proximal calf. No echogenic clot is seen in the lumen of the common femoral, femoral, popliteal, and posterior tibial veins. There is a normal response of the venous system to proximal and distal augm entation and respiration. There is a Jackson's cyst in the left popliteal fossa measuring 3.5 x 1.7 cm. CONCLUSION: 1. No evidence of DVT. 2. Left-sided Jackson's cyst in the left popliteal fossa measuring 3.5 cm.. Electronically signed by: Trevor Jeff MD 08/03/2017 7:57 PM EDT
--- NOTE | 2017-08-03 20:01 | RADRPT ---
EXAM DATE: 08/03/2017 7:57 PM EDT AGE/SEX: 71 years / Female INDICATIONS: Stenosis. CLINICAL DATA: This is the patient's initial encounter. Patient reports that signs and symptoms have been present for 1 day and indicates a pain score of 0/10. MEDICAL/SURGICAL HISTORY: Hypertension. Arthritis. Thyroid disease. Hyperlipidemia. Diabetes. Substance use. Tonsillectomy. Bilateral eye and ear surgery. Left knee surgery. Goiter removed. COMPARISON: No prior [place] exams available for comparison. No external comparison. VELOCITY PARAMETERS: ICA/CCA Ratio: Right 1.4 , Left 1.1 ICA: Right 110 cm/sec, Left 94 cm/sec CCA: Right 80 cm/sec, Left 84 cm/sec ECA: Right 81 cm/sec, Left 84 cm/sec Vertebral: Right 64 cm/sec antegrade, Left 62 cm/sec antegrade FINDINGS: Right Carotid: Mild calcified plaque in the bulb extending to the origin of the ICA. The waveforms a re within normal limits. Left Carotid: Bulky calcified plaque in the bulb extending to the origin of the ICA. The waveforms are within normal limits. Other: None. CONCLUSION: 1. Right Internal Carotid Artery: Findings indicate <50% stenosis. 2. Left Internal Carotid Artery: Findings indicate <50% stenosis. Electronically signed by: Markus Vale MD 08/03/2017 8:00 PM EDT
[2017-08-03] MEDS: INSULIN ASPART SUPPLEMENTAL SCALE SQ SCH (20:25)
[2017-08-03] MEDS: BACLOFEN 10 MG TAB PO SCH (20:25)
[2017-08-03] MEDS: CARVEDILOL 3.125 MG TAB PO SCH (20:26)
[2017-08-03] MEDS: SODIUM CHLORIDE 0.9% FLUSH 10 ML FLUSH IV FLUSH SCH (20:26)
[2017-08-03] MEDS ORDERED: SODIUM CHLORIDE 0.9% FLUSH 10 ML FLUSH IV FLUSH SCH ×2 (21:00)
[2017-08-03] MEDS ORDERED: FUROSEMIDE 40 MG/4 ML VIAL IV PUSH ONE (21:30)
[2017-08-03 22:32] LABS: BILIRUBIN, URINE NEG (NEG); BLOOD, URINE TRACE (NEG); GLUCOSE,URINE NEG (NEG); KETONE, URINE NEG (NEG); MUCUS URINE FEW /lpf (OCC); NITRITE,URINE NEG (NEG); SQUAMOUS EPITHELIAL CELL URINE 5 /hpf (0-5); URINE COLOR YELLOW (YELLW/STRAW); URINE LEUKOCYTE ESTERASE SMALL (NEG)
[2017-08-04] VITALS (23 sets, daily range): BP systolic 102–125; BP diastolic 56–68; PULSE 57–106; RESP 16–18; TEMP 98.1–99.9; O2SAT 96–98
[2017-08-04] MEDS ORDERED: BISACODYL 10 MG SUPP RECTAL PRN (00:30)
[2017-08-04] MEDS ORDERED: MORPHINE SULFATE 4 MG/ML INJ IV PRN ×2 (00:30)
[2017-08-04] MEDS ORDERED: SENNOSIDES 8.6 MG TAB PO PRN (00:30)
[2017-08-04] MEDS ORDERED: MAGNESIUM HYDROXIDE SUSP 30 ML CUP PO PRN (00:30)
[2017-08-04] MEDS ORDERED: RESP: ALBUTEROL 2.5 MG/IPRATROPIUM 0.5 MG NEB (PRN) NEB (00:30)
[2017-08-04] MEDS ORDERED: FAMOTIDINE 20 MG TAB PO PRN (00:30)
[2017-08-04] MEDS ORDERED: NALOXONE HCL 0.4 MG/ML AMP IV PUSH PRN (00:30)
[2017-08-04] MEDS ORDERED: LACTULOSE SYRUP 20 GM/30 ML CUP PO PRN (00:30)
[2017-08-04 01:12] LABS: AUTOMATED NEUTROPHIL # 2.1 TH/MM3 (1.8-7.7); BASOPHIL # 0.1 TH/MM3 (0-0.2); BASOPHIL % 1.2 % (0.0-2.0); EOSINOPHIL # 0.2 TH/MM3 (0-0.4); EOSINOPHIL % 4.9 % (0.0-4.0); HEMATOCRIT 39.6 % (35.0-46.0); HEMOGLOBIN 13.9 GM/DL (11.6-15.3); LYMPH % 38.6 % (9.0-44.0); LYMPHOCYTE # 1.7 TH/MM3 (1.0-4.8); MEAN CELL VOLUME 92.3 FL (80.0-100.0); MEAN CORPUSCULAR HEMOGLOBIN 32.3 PG (27.0-34.0); MEAN PLATELET VOLUME 9.5 FL (7.0-11.0); MONO % 6.3 % (0.0-8.0); MONOCYTE # 0.3 TH/MM3 (0-0.9); PLATELET COUNT 189 TH/MM3 (150-450); RED BLOOD COUNT 4.29 MIL/MM3 (4.00-5.30); RED CELL DISTRIBUTION WIDTH 13.9 % (11.6-17.2); WHITE BLOOD COUNT 4.4 TH/MM3 (4.0-11.0)
[2017-08-04] MEDS ORDERED: ONDANSETRON ODT 4 MG TAB PO PRN (01:15)
[2017-08-04 01:27] LABS: ALBUMIN 3.6 GM/DL (3.4-5.0); AST (GOT) 51 U/L (15-37); BICARBONATE 27.1 MEQ/L (21.0-32.0); BLOOD UREA NITROGEN 15 MG/DL (7-18); CALCIUM 8.9 MG/DL (8.5-10.1); CHLORIDE 104 MEQ/L (98-107); CHOLESTEROL 139 MG/DL (120-200); CREATININE 1.07 MG/DL (0.50-1.00); GLOMERULAR FILTRATION RATE 62 ML/MIN (>89); GLUCOSE,RANDOM 101 MG/DL (74-106); SODIUM (NA) 141 MEQ/L (136-145)
[2017-08-04 01:35] LABS: ALKALINE PHOSPHATASE 168 U/L (45-117); ALT (GPT) 104 U/L (10-53); CHOLESTEROL/ HDL RATIO 1.91 RATIO; FREE T3 3.25 PG/ML (2.18-3.98); HDL CHOLESTEROL 72.7 MG/DL (40.0-60.0); LDL CHOLESTEROL 49 MG/DL (0-99); THYROXINE (T4) 13.9 MCG/DL (4.8-13.9); TOTAL BILIRUBIN ADULT 0.3 MG/DL (0.2-1.0); TOTAL PROTEIN 7.2 GM/DL (6.4-8.2); TRIGLYCERIDES 86 MG/DL (42-150); TROPONIN I 0.18 NG/ML (0.02-0.05)
[2017-08-04] MEDS ORDERED: ACETAMINOPHEN 325 MG TAB PO PRN (02:00)
[2017-08-04] MEDS: LEVOTHYROXINE SODIUM 200 MCG TAB PO SCH (05:45)
[2017-08-04] MEDS: INSULIN ASPART SUPPLEMENTAL SCALE SQ SCH ×4 (08:00→21:00)
[2017-08-04] MEDS: amLODIPine BESYLATE 5 MG TAB PO SCH (08:18)
[2017-08-04] MEDS: CARVEDILOL 3.125 MG TAB PO SCH ×2 (08:20→22:23)
[2017-08-04] MEDS: TIOTROPIUM BROMIDE 18 MCG INH INH SCH (08:20)
[2017-08-04] MEDS: SODIUM CHLORIDE 0.9% FLUSH 10 ML FLUSH IV FLUSH SCH ×2 (08:20→22:24)
[2017-08-04] MEDS: prednisoLONE ACETATE 1% OPHT SUSP 5 ML BTL EACH EYE SCH (08:21)
[2017-08-04] MEDS: DOCUSATE SODIUM 50 MG/SENNA 8.6 MG TAB PO SCH ×2 (08:21→22:23)
[2017-08-04] MEDS ORDERED: ASPIRIN 325 MG TAB PO SCH (09:00)
[2017-08-04] MEDS ORDERED: LISINOPRIL 20 MG TAB PO SCH (09:00)
[2017-08-04] MEDS ORDERED: NON-FORMULARY DRUG (Lisinopril 40 MG) PO SCH (09:00)
--- NOTE | 2017-08-04 10:16 | HHI.HP ---
[facility] Service Family Medicine Primary Care Physician Cole Emerson MD Admission Diagnosis Chest Pain with elevated Troponin Diagnoses: (1) Coronary artery disease with unstable angina pectoris (2) LFT elevation (3) Bibasilar crackles (4) Diabetes mellitus (5) COPD (chronic obstructive pulmonary disease) (6) Hypertension (7) Osteoarthritis (8) Hypothyroidism (9) Hyperlipidemia (10) Tobacco abuse (11) Illicit drug use (12) No contraindication to deep vein thrombosis (DVT) prophylaxis (13) Nutrition, metabolism, and development symptoms International Travel<30 Days: No Contact w/Intl Traveler<30days: No Known Affected Area: No History of Present Illness 71-year-old female presented to the emergency department with complaint of left- sided chest and shoulder pain for 5 days duration. Described as a strong pressure located in the midsternal radiating to her left shoulder and occasionally down her arm. She has occasional shortness of breath and occasional diaphoresis, however denies any nausea or vomiting. She notices that the pain is there at all times but is worse with activity. In the emergency department, she was evaluated with cardiac troponins are elevated at 0.11 and she was taken to catheterization. At her catheterization, she was noted to have significant left main disease with three-vessel disease and cardiothoracic surgery was consulted to evaluate for bypass grafting. She was admitted to the cardiac ICU and was placed on a heparin drip as well as a nitro drip. On evaluation this morning, she is sitting comfortably and denies any chest pain. She was able to eat breakfast without issue and states that she is feeling well. She denies chest pain or pressure, she denies shortness of breath , she denies peripheral edema or swelling, she denies coughing. Review of Systems Constitutional: COMPLAINS OF: Fatigue, DENIES: Fever, Chills Respiratory: COMPLAINS OF: Shortness of breath, DENIES: Cough, Wheezing, Sputum production Cardiovascular: COMPLAINS OF: Chest pain, Dyspnea on Exertion, DENIES: Palpitations, Syncope, Lower Extremity Edema Gastrointestinal: DENIES: Abdominal pain, Constipation, Diarrhea, Nausea, Vomiting Musculoskeletal: COMPLAINS OF: Joint pain Past Family Social History Past Medical History HTN DM COPD Hypothyroidism Osteoarthritis Past Surgical History Goiter removed-2010 Cataract surgery bilaterally, left cornea surgery Left knee arthroscopy Allergies: Coded Allergies: No Known Allergies (Unverified Adverse Reaction, Unknown, 08/03/17) Family History Father-[place] Mother-unknown Sister-cancer Social History Marital Status: Single Living Situation: Living with daughter Education: 11th grade 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 Tobacco: 1 pack/3 days Alcohol: No reported history Illicit drug use: marijuana daily, cocaine 1x/month Physical Exam Vital Signs Vital Signs Date Time Temp Pulse Resp B/P (MAP) Pulse Ox O2 Delivery O2 Flow Rate FiO2 08/04/17 09:00 88 08/04/17 08:00 81 08/04/17 08:00 98.1 78 16 102/56 (71) 96 08/04/17 07:00 72 08/04/17 06:40 18 08/04/17 06:00 70 08/04/17 05:00 68 08/04/17 04:00 79 08/04/17 03:09 72 08/04/17 03:05 98.4 66 17 125/62 (83) 97 08/04/17 02:26 71 08/04/17 01:45 79 114/59 08/04/17 01:30 80 122/66 08/04/17 01:09 64 08/04/17 00:08 57 08/03/17 23:08 98.3 69 18 120/68 (85) 97 08/03/17 23:00 69 08/03/17 22:23 68 08/03/17 21:00 62 08/03/17 20:00 88 08/03/17 19:56 98.1 68 19 176/84 (114) 97 08/03/17 19:30 78 174/83 08/03/17 19:15 75 179/80 08/03/17 19:09 19 08/03/17 19:09 18 08/03/17 19:07 75 184/87 08/03/17 19:00 71 08/03/17 18:57 68 183/80 08/03/17 18:49 71 154/70 08/03/17 18:00 62 08/03/17 17:00 60 08/03/17 16:51 98.0 67 20 174/78 (110) 98 08/03/17 16:45 68 08/03/17 15:36 91 Nasal Cannula 2.00 08/03/17 14:21 08/03/17 11:52 99 Room Air 08/03/17 11:52 99 Room Air 08/03/17 11:47 80 20 99 Room Air 08/03/17 11:47 78 18 141/92 (108) 99 Room Air 08/03/17 11:36 98.5 77 16 121/65 (83) 97 Physical Exam GENERAL: -[place] female, lying in bed with no obvious distress. SKIN: R Groin: Right groin area with CDI sterile bandage S/P cardiac catheterization. No warmth, erythema, or hemorrhage appreciated. HEENT: Atraumatic, normocephalic with EOMI. CARDIOVASCULAR: Regular rate and rhythm with no murmurs. No peripheral edema or lower extremity edema RESPIRATORY: Bilateral crackles at the bases. No increased work of breathing at this time. GASTROINTESTINAL: Abdomen soft, non-tender, nondistended with positive bowel sounds. NEUROLOGICAL: Grossly normal. AAO 3. Normal speech and judgment. Laboratory Laboratory Tests Test 08/03/17 11:55 08/03/17 18:25 08/03/17 18:35 08/03/17 20:20 White Blood Count 5.3 Red Blood Count 4.25 Hemoglobin 13.6 Hematocrit 40.1 Mean Corpuscular Volume 94.2 Mean Corpuscular Hemoglobin 31.9 Mean Corpuscular Hemoglobin Concent 33.9 Red Cell Distribution Width 13.9 Platelet Count 201 Mean Platelet Volume 9.2 Neutrophils (%) (Auto) 52.6 Lymphocytes (%) (Auto) 37.0 Monocytes (%) (Auto) 7.2 Eosinophils (%) (Auto) 2.6 Basophils (%) (Auto) 0.6 Neutrophils # (Auto) 2.8 Lymphocytes # (Auto) 1.9 Monocytes # (Auto) 0.4 Eosinophils # (Auto) 0.1 Basophils # (Auto) 0.0 CBC Comment DIFF FINAL Differential Comment Prothrombin Time 9.5 Prothromb Time International Ratio 0.9 Activated Partial Thromboplast Time 23.8 Blood Urea Nitrogen 14 Creatinine 0.91 Random Glucose 85 Total Protein 7.2 Albumin 3.4 Calcium Level 8.5 Magnesium Level 2.0 Alkaline Phosphatase 165 Aspartate Amino Transf (AST/SGOT) 53 Alanine Aminotransferase (ALT/SGPT) 106 Total Bilirubin 0.2 Sodium Level 143 Potassium Level 4.3 Chloride Level 107 Carbon Dioxide Level 26.0 Anion Gap 10 Estimat Glomerular Filtration Rate 74 Total Creatine Kinase 77 65 Troponin I 0.11 0.11 Hepatitis A IgM Antibody NONREACTIVE Hepatitis B Surface Antigen NONREACTIVE Hepatitis B Core IgM Antibody NONREACTIVE Hepatitis C IgG Antibody NONREACTIVE Hemoglobin A1c 5.8 Phosphorus Level 3.9 B-Type Natriuretic Peptide 23 Thyroid Stimulating Hormone 3rd Gen 0.014 Urine Color YELLOW Urine Turbidity HAZY Urine pH 6.0 Urine Specific [place] 1.035 Urine Protein NEG Urine Glucose (UA) NEG Urine Ketones NEG Urine Occult Blood TRACE Urine Nitrite NEG Urine Bilirubin NEG Urine Urobilinogen LESS THAN 2.0 Urine Leukocyte Esterase SMALL Urine RBC 2 Urine WBC 4 Urine Squamous Epithelial Cells 5 Urine Mucus FEW Microscopic Urinalysis Comment CULT NOT INDICATED Urine Opiates Screen NEG Urine Barbiturates Screen NEG Urine Amphetamines Screen NEG Urine Benzodiazepines Screen POS Urine Cocaine Screen POS Urine Cannabinoids Screen POS Test 08/03/17 20:33 08/03/17 21:00 08/04/17 00:55 08/04/17 06:47 Nasal Screen MRSA (PCR) MRSA NOT DETECTED Activated Partial Thromboplast Time 32.7 41.5 49.3 White Blood Count 4.4 Red Blood Count 4.29 Hemoglobin 13.9 Hematocrit 39.6 Mean Corpuscular Volume 92.3 Mean Corpuscular Hemoglobin 32.3 Mean Corpuscular Hemoglobin Concent 35.0 Red Cell Distribution Width 13.9 Platelet Count 189 Mean Platelet Volume 9.5 Neutrophils (%) (Auto) 49.0 Lymphocytes (%) (Auto) 38.6 Monocytes (%) (Auto) 6.3 Eosinophils (%) (Auto) 4.9 Basophils (%) (Auto) 1.2 Neutrophils # (Auto) 2.1 Lymphocytes # (Auto) 1.7 Monocytes # (Auto) 0.3 Eosinophils # (Auto) 0.2 Basophils # (Auto) 0.1 CBC Comment DIFF FINAL Differential Comment Blood Urea Nitrogen 15 Creatinine 1.07 Random Glucose 101 Total Protein 7.2 Albumin 3.6 Calcium Level 8.9 Alkaline Phosphatase 168 Aspartate Amino Transf (AST/SGOT) 51 Alanine Aminotransferase (ALT/SGPT) 104 Total Bilirubin 0.3 Sodium Level 141 Potassium Level 4.1 Chloride Level 104 Carbon Dioxide Level 27.1 Anion Gap 10 Estimat Glomerular Filtration Rate 62 Total Creatine Kinase 72 Troponin I 0.18 0.19 Triglycerides Level 86 Cholesterol Level 139 LDL Cholesterol 49 HDL Cholesterol 72.7 Cholesterol/HDL Ratio 1.91 Thyroxine (T4) 13.9 Free Triiodothyronine (T3) pg/dL 3.25 Result Diagram: 08/04/17 0055 08/04/17 0055 Imaging Last 72 hours Impressions Chest X-Ray 08/03/17 1150 Signed Impressions: CONCLUSION: No acute findings. Mildly tortuous aorta. Lower Extremity Ultrasound 08/03/17 0000 Signed Impressions: CONCLUSION: 1. Lower extremity venous mapping, as above. Lower Extremity Ultrasound 08/03/17 0000 Signed Impressions: CONCLUSION: 1. No evidence of DVT. 2. Left-sided Jackson's cyst in the left popliteal fossa measuring 3.5 cm.. Carotid Artery Ultrasound 08/03/17 0000 Signed Impressions: CONCLUSION: 1. Right Internal Carotid Artery: Findings indicate <50% stenosis. 2. Left Internal Carotid Artery: Findings indicate <50% stenosis. Caprini VTE Risk Assessment Caprini VTE Risk Assessment: Mod/High Risk (score >= 2) Caprini Risk Assessment Model Point Value = 1 Point Value = 2 Point Value = 3 Point Value = 5 Age 41-60 Minor surgery BMI > 25 kg/m2 Swollen legs Varicose veins or History of unexplained or recurrent spontaneous Oral contraceptives or hormone replacement Sepsis (< 1 month) Serious lung disease, including pneumonia (< 1 month) Abnormal pulmonary function Acute myocardial infarction Congestive heart failure (< 1 month) History of inflammatory bowel disease Medical patient at bed rest Age 61-74 Arthroscopic surgery Major open surgery (> 45 min) Laparoscopic surgery (> 45 min) Malignancy Confined to bed (> 72 hours) Immobilizing plaster cast Central venous access Age >= 75 History of VTE Family history of VTE Factor V Leiden Prothrombin [id number] Lupus anticoagulant Anticardiolipin antibodies Elevated serum homocysteine Heparin-induced thrombocytopenia Other congenital or acquired thrombophilia Stroke (< 1 month) Elective arthroplasty Hip, pelvis, or leg fracture Acute spinal cord injury (< 1 month) Prophylaxis Regimen Total Risk Factor Score Risk Level Prophylaxis Regimen 0-1 Low Early ambulation 2 Moderate Order ONE of the following: *Sequential Compression Device (SCD) *Heparin 5000 units SQ BID 3-4 Higher Order ONE of the following medications: *Heparin 5000 units SQ TID *Enoxaparin/Lovenox 40 mg SQ daily (WT < 150 kg, CrCl > 30 mL/min) *Enoxaparin/Lovenox 30 mg SQ daily (WT < 150 kg, CrCl > 10-29 mL/min) *Enoxaparin/Lovenox 30 mg SQ BID (WT < 150 kg, CrCl > 30 mL/min) AND/OR *Sequential Compression Device (SCD) 5 or more Highest Order ONE of the following medications: *Heparin 5000 units SQ TID (Preferred with Epidurals) *Enoxaparin/Lovenox 40 mg SQ daily (WT < 150 kg, CrCl > 30 mL/min) *Enoxaparin/Lovenox 30 mg SQ daily (WT < 150 kg, CrCl > 10-29 mL/min) *Enoxaparin/Lovenox 30 mg SQ BID (WT < 150 kg, CrCl > 30 mL/min) AND *Sequential Compression Device (SCD) Assessment and Plan Assessment and Plan Ms. Welch is a 71-year-old female presenting with chest pain found to have severe two-vessel disease admitted for coronary artery bypass grafting. Problem List: (1) Coronary artery disease with unstable angina pectoris ICD Codes: I25.110 - Atherosclerotic heart disease of [place] coronary artery with unstable angina pectoris Status: Acute Plan: Patient scheduled for coronary artery bypass graft with cardiothoracic surgery on 08/05/17 -She will be placed n.p.o. after midnight Status post cardiac catheterization on 08/03/17: -Severe left main and three-vessel coronary disease and a right dominant system. Mildly reduced LV systolic function of 45% with severe hypokinesis to akinesis of the apex. EKG: Sinus rhythm with Q waves of the inferior leads and poor R wave progression (NSTEMI) Troponin: 0.11 -0.18 - 0.19 2D echocardiogram and venous mapping ordered Medications: -Carvedilol 3.125 mg twice daily -Heparin drip per protocol -Nitroglycerin drip per protocol -Daily aspirin -Morphine as needed for pain -Oxygen as needed (2) LFT elevation ICD Codes: R79.89 - Other specified abnormal findings of blood chemistry Status: Acute Plan: LFTs remain elevated but are stable -Hepatitis panel negative -Continue to monitor -Possibly related to illicit drug use -Hold statin at this time -Per chart review, no previous studies available (3) Bibasilar crackles ICD Codes: R09.89 - Other specified symptoms and signs involving the circulatory and respiratory systems Status: Acute Plan: Chest x-ray shows minimal bibasilar atelectasis without significant edema -Patient with nonproductive cough during exam with oxygen saturation at 93% Treated with Lasix 40 mg IV 1 and no appreciable crackles on exam today Cardiac catheterization shows ejection fraction of 45% Echocardiogram pending in preparation of coronary artery bypass grafting Incentive spirometry ordered (4) Diabetes mellitus ICD Codes: E11.9 - Type 2 diabetes mellitus without complications Status: Chronic Plan: Bedside glucose 177, 130 -Required 1 unit sliding scale insulin -A1c: 5.8 Medications: -Hold metformin and glipizide -Sliding scale insulin per protocol (5) COPD (chronic obstructive pulmonary disease) ICD Codes: J44.9 - Chronic obstructive pulmonary disease, unspecified Status: Chronic Plan: Medications: -Albuterol twice daily -Spiriva daily -DuoNeb as needed for shortness of breath (6) Hypertension ICD Codes: I10 - Essential (primary) hypertension Status: Chronic Plan: Medications: -Continue amlodipine 5 mg daily Started on carvedilol 3.125 mg p.o. twice daily -Home lisinopril held -Clonidine as needed for blood pressure greater than 160/90 (7) Osteoarthritis ICD Codes: M19.90 - Unspecified osteoarthritis, unspecified site Status: Chronic Plan: Medications: -Continue baclofen 10 mg daily -Hold Mobic -Hold tramadol -Morphine as needed as above (8) Hypothyroidism ICD Codes: E03.9 - Hypothyroidism, unspecified Status: Chronic Plan: -TSH: Pending Medications: -Levothyroxine 200 mcg daily (9) Hyperlipidemia ICD Codes: E78.5 - Hyperlipidemia, unspecified Status: Chronic Plan: -Lipid profile: Pending Medications: -Defer statin at this time as LFTs are elevated (continue to monitor) (10) Tobacco abuse ICD Codes: Z72.0 - Tobacco use Status: Acute Plan: -Thoroughly educated patient risks of tobacco abuse -Patient declines nicotine patch at this time (11) Illicit drug use ICD Codes: F19.90 - Other psychoactive substance use, unspecified, uncomplicated Status: Acute Plan: UDS: Positive for benzodiazepines, cocaine, and cannabinoids - Strongly counseled on cessation of illicit drugs including cocaine and marijuana - Patient previously administered beta-ligia despite cocaine use; continue to monitor (12) No contraindication to deep vein thrombosis (DVT) prophylaxis ICD Codes: Z78.9 - Other specified health status Status: Acute Plan: -Heparin drip per protocol -SCDs (13) Nutrition, metabolism, and development symptoms ICD Codes: R63.8 - Other symptoms and signs concerning food and fluid intake Status: Acute Plan: -Diet: Heart healthy as tolerated, n.p.o. after midnight in preparation for surgery -Fluids: Patient appears hydrated on exam heparin and nitro glycerin infusions per protocol -Electrolytes: Within normal limits, continue to monitor -Prophylaxis: Clonidine as needed for BP greater than 160/90, morphine as needed for pain, Zofran as needed for nausea/vomiting, constipation protocol, famotidine as needed for reflux Physician Certification 2 Midnight Certification Type: Admission for Inpatient Services Order for Inpatient Services The services are ordered in accordance with Medicare regulations or non- Medicare payer requirements, as applicable. In the case of services not specified as inpatient-only, they are appropriately provided as inpatient services in accordance with the 2-midnight benchmark. Estimated LOS (days): 2 2 days is the estimated time the patient will need to remain in the hospital, assuming treatment plan goals are met and no additional complications. Post-Hospital Plan: Not yet determined Problem Qualifiers (1) Coronary artery disease with unstable angina pectoris: Qualified Codes: I25.110 - Atherosclerotic heart disease of [place] coronary artery with unstable angina pectoris (2) Diabetes mellitus: Qualified Codes: E11.69 - Type 2 diabetes mellitus with other specified complication (3) COPD (chronic obstructive pulmonary disease): Qualified Codes: J43.9 - Emphysema, unspecified (4) Hypertension: Qualified Codes: I10 - Essential (primary) hypertension (5) Osteoarthritis: Qualified Codes: M15.0 - Primary generalized (osteo)arthritis (6) Hypothyroidism: Qualified Codes: E89.0 - Postprocedural hypothyroidism (7) Hyperlipidemia: Qualified Codes: E78.2 - Mixed hyperlipidemia Trevor Moore MD August 04, 2017 10:16
--- NOTE | 2017-08-04 14:27 | PD.CARD.PN ---
Subjective Subjective Remarks alert in nad, assymptomatic Objective Medications Current Medications Medications (Trade) Dose Ordered Sig/Wagner Route Start Time Stop Time Status Last Admin (Proair Hfa Inh) 1 puff BID PRN INH 08/03/17 14:00 (Norvasc) 5 mg DAILY PO 08/04/17 09:00 08/04/17 08:18 (Lioresal) 10 mg HS PO 08/03/17 21:00 08/03/17 20:25 (Synthroid) 200 mcg DAILY@0600 PO 08/04/17 06:00 08/04/17 05:45 (Pred Forte 1% Opth Susp) 1 drop DAILY EACH EYE 08/04/17 09:00 08/04/17 08:21 (Aspirin) 325 mg DAILY PO 08/04/17 09:00 08/04/17 08:19 (Prinivil) 40 mg DAILY PO 08/04/17 09:00 Future Hold (Spiriva Inh) 18 mcg DAILY INH 08/04/17 09:00 08/04/17 08:20 (Ventolin Hfa Inh) 2 puff QID INH 08/03/17 18:00 Future Hold (Coreg) 3.125 mg Q12HR PO 08/03/17 21:00 08/04/17 08:20 (NS Flush) 2 ml BID IV FLUSH 08/03/17 21:00 (NS Flush) 2 ml UNSCH PRN IV FLUSH 08/03/17 16:30 08/03/17 22:14 Papaverine HCl 60 mg/Nitroglycerin 100 mcg/Verapamil HCl 100 mg/Sodium Chloride 100 ml @ 0 mls/hr MOBILE MANAGER IRRIGATION 08/03/17 16:30 08/10/17 16:29 Cefazolin Sodium 500 mg/Sodium Chloride 505 ml @ 0 mls/hr MOBILE MANAGER IRRIGATION 08/03/17 16:30 08/10/17 16:29 Cefazolin Sodium/ Dextrose 50 ml @ 150 mls/hr MOBILE MANAGER IV 08/03/17 16:30 08/10/17 16:29 (Lopressor) 12.5 mg MOBILE MANAGER PO 08/03/17 16:30 08/10/17 16:29 (Hibiclens 4% Top Soln) 1 applic MOBILE MANAGER TOPICAL 08/03/17 16:30 08/10/17 16:29 Insulin Human Regular 100 units/ Sodium Chloride 100 ml @ 3 mls/hr TITRATE PRN IV 08/03/17 16:30 08/10/17 16:29 (D50w (Vial) Inj) 50 ml UNSCH PRN IV PUSH 08/03/17 17:15 (Glucagon Inj) 1 mg UNSCH PRN OTHER 08/03/17 17:15 (NovoLOG SUPPLEMENTAL SCALE) 1 ACHS SLIDING SCALE SQ 08/03/17 21:00 08/04/17 11:33 (Catapres) 0.1 mg Q8HR PRN PO 08/03/17 17:15 Heparin Sodium/ Dextrose 250 ml @ 9 mls/hr TITRATE PRN IV 08/03/17 18:45 08/03/17 18:57 Nitroglycerin/ Dextrose 250 ml @ 1.5 mls/hr TITRATE PRN IV 08/03/17 18:45 08/03/17 18:49 (Morphine Inj) 1 mg Q3H PRN IV 08/04/17 00:30 08/04/17 06:22 (Morphine Inj) 3 mg Q3H PRN IV 08/04/17 00:30 (Narcan Inj) 0.4 mg UNSCH PRN IV PUSH 08/04/17 00:30 (Zofran Odt) 4 mg Q8H PRN PO 08/04/17 01:15 (Concepción-Colace) 1 tab BID PO 08/04/17 09:00 08/04/17 08:21 (Milk Of Magnesia Liq) 30 ml Q12H PRN PO 08/04/17 00:30 (Senokot) 17.2 mg Q12H PRN PO 08/04/17 00:30 (Dulcolax Supp) 10 mg DAILY PRN RECTAL 08/04/17 00:30 (Lactulose Liq) 30 ml DAILY PRN PO 08/04/17 00:30 (Pepcid) 10 mg BID PRN PO 08/04/17 00:30 (Duoneb Neb) 1 ampule Q6HR NEB PRN NEB 08/04/17 00:30 (Tylenol) 650 mg Q4H PRN PO 08/04/17 02:00 Vital Signs / I&O Vital Signs Date Time Temp Pulse Resp B/P (MAP) Pulse Ox O2 Delivery O2 Flow Rate FiO2 08/04/17 12:00 80 5/31/18 12:00 98.2 79 16 112/64 (80) 96 08/04/17 11:00 94 08/04/17 10:00 80 08/04/17 09:00 88 08/04/17 08:00 81 08/04/17 08:00 98.1 78 16 102/56 (71) 96 08/04/17 07:00 72 08/04/17 06:40 18 08/04/17 06:00 70 08/04/17 05:00 68 08/04/17 04:00 79 08/04/17 03:09 72 08/04/17 03:05 98.4 66 17 125/62 (83) 97 08/04/17 02:26 71 08/04/17 01:45 79 114/59 08/04/17 01:30 80 122/66 08/04/17 01:09 64 08/04/17 00:08 57 08/03/17 23:08 98.3 69 18 120/68 (85) 97 08/03/17 23:00 69 08/03/17 22:23 68 08/03/17 21:00 62 08/03/17 20:00 88 08/03/17 19:56 98.1 68 19 176/84 (114) 97 08/03/17 19:30 78 174/83 08/03/17 19:15 75 179/80 08/03/17 19:09 19 08/03/17 19:09 18 08/03/17 19:07 75 184/87 08/03/17 19:00 71 08/03/17 18:57 68 183/80 08/03/17 18:49 71 154/70 08/03/17 18:00 62 08/03/17 17:00 60 08/03/17 16:51 98.0 67 20 174/78 (110) 98 08/03/17 16:45 68 08/03/17 15:36 91 Nasal Cannula 2.00 I/O 08/03/17 08/03/17 08/03/17 08/04/17 08/04/17 08/04/17 06:59 14:59 22:59 06:59 14:59 22:59 Intake Total 340 ml 240 ml 976 ml Output Total 0 ml 1800 ml 450 ml Balance 340 ml -1560 ml 526 ml Intake Oral 240 ml 240 ml 630 ml IV Total 100 ml 346 ml Output Urine Total 0 ml 1800 ml 450 ml # Bowel Movements 0 0 Physical Exam GENERAL: SKIN: Warm and dry. HEAD: Normocephalic. EYES: No scleral icterus. No injection or drainage. NECK: Supple, trachea midline. No JVD or lymphadenopathy. CARDIOVASCULAR: Regular rate and rhythm without murmurs, gallops, or rubs. RESPIRATORY: Breath sounds equal bilaterally. No accessory muscle use. GASTROINTESTINAL: Abdomen soft, non-tender, nondistended. MUSCULOSKELETAL: No cyanosis, or edema. BACK: Nontender without obvious deformity. No CVA tenderness. Laboratory Laboratory Tests Test 08/03/17 18:25 08/03/17 18:35 08/03/17 20:20 08/03/17 20:33 Hepatitis A IgM Antibody NONREACTIVE Hepatitis B Surface Antigen NONREACTIVE Hepatitis B Core IgM Antibody NONREACTIVE Hepatitis C IgG Antibody NONREACTIVE Hemoglobin A1c 5.8 % Phosphorus Level 3.9 MG/DL Total Creatine Kinase 65 U/L Troponin I 0.11 NG/ML B-Type Natriuretic Peptide 23 PG/ML Thyroid Stimulating Hormone 3rd Gen 0.014 uIU/ML Urine Color YELLOW Urine Turbidity HAZY Urine pH 6.0 Urine Specific [place] 1.035 Urine Protein NEG mg/dL Urine Glucose (UA) NEG mg/dL Urine Ketones NEG mg/dL Urine Occult Blood TRACE Urine Nitrite NEG Urine Bilirubin NEG Urine Urobilinogen LESS THAN 2.0 MG/DL Urine Leukocyte Esterase SMALL Urine RBC 2 /hpf Urine WBC 4 /hpf Urine Squamous Epithelial Cells 5 /hpf Urine Mucus FEW /lpf Microscopic Urinalysis Comment CULT NOT INDICATED Urine Opiates Screen NEG Urine Barbiturates Screen NEG Urine Amphetamines Screen NEG Urine Benzodiazepines Screen POS Urine Cocaine Screen POS Urine Cannabinoids Screen POS Nasal Screen MRSA (PCR) MRSA NOT DETECTED Test 08/03/17 21:00 08/04/17 00:55 08/04/17 06:47 08/04/17 13:49 Activated Partial Thromboplast Time 32.7 SEC 41.5 SEC 49.3 SEC White Blood Count 4.4 TH/MM3 Red Blood Count 4.29 MIL/MM3 Hemoglobin 13.9 GM/DL Hematocrit 39.6 % Mean Corpuscular Volume 92.3 FL Mean Corpuscular Hemoglobin 32.3 PG Mean Corpuscular Hemoglobin Concent 35.0 % Red Cell Distribution Width 13.9 % Platelet Count 189 TH/MM3 Mean Platelet Volume 9.5 FL Neutrophils (%) (Auto) 49.0 % Lymphocytes (%) (Auto) 38.6 % Monocytes (%) (Auto) 6.3 % Eosinophils (%) (Auto) 4.9 % Basophils (%) (Auto) 1.2 % Neutrophils # (Auto) 2.1 TH/MM3 Lymphocytes # (Auto) 1.7 TH/MM3 Monocytes # (Auto) 0.3 TH/MM3 Eosinophils # (Auto) 0.2 TH/MM3 Basophils # (Auto) 0.1 TH/MM3 CBC Comment DIFF FINAL Differential Comment Blood Urea Nitrogen 15 MG/DL Creatinine 1.07 MG/DL Random Glucose 101 MG/DL Total Protein 7.2 GM/DL Albumin 3.6 GM/DL Calcium Level 8.9 MG/DL Alkaline Phosphatase 168 U/L Aspartate Amino Transf (AST/SGOT) 51 U/L Alanine Aminotransferase (ALT/SGPT) 104 U/L Total Bilirubin 0.3 MG/DL Sodium Level 141 MEQ/L Potassium Level 4.1 MEQ/L Chloride Level 104 MEQ/L Carbon Dioxide Level 27.1 MEQ/L Anion Gap 10 MEQ/L Estimat Glomerular Filtration Rate 62 ML/MIN Total Creatine Kinase 72 U/L Troponin I 0.18 NG/ML 0.19 NG/ML 0.17 NG/ML Triglycerides Level 86 MG/DL Cholesterol Level 139 MG/DL LDL Cholesterol 49 MG/DL HDL Cholesterol 72.7 MG/DL Cholesterol/HDL Ratio 1.91 RATIO Thyroxine (T4) 13.9 MCG/DL Free Triiodothyronine (T3) pg/dL 3.25 PG/ML Assessment and Plan Problem List: (1) NSTEMI (non-ST elevated myocardial infarction) ICD Codes: I21.4 - Non-ST elevation (NSTEMI) myocardial infarction Status: Acute (2) COPD (chronic obstructive pulmonary disease) ICD Codes: J44.9 - Chronic obstructive pulmonary disease, unspecified Status: Chronic (3) Diabetes mellitus ICD Codes: E11.9 - Type 2 diabetes mellitus without complications Status: Chronic (4) Coronary artery disease with unstable angina pectoris ICD Codes: I25.110 - Atherosclerotic heart disease of [place] coronary artery with unstable angina pectoris Status: Acute (5) Tobacco abuse ICD Codes: Z72.0 - Tobacco use Status: Acute (6) LFT elevation ICD Codes: R79.89 - Other specified abnormal findings of blood chemistry Status: Acute (7) Illicit drug use ICD Codes: F19.90 - Other psychoactive substance use, unspecified, uncomplicated Status: Acute Assessment and Plan 1.) NSTEMI - cabg scheduled for 08/05/17 due to severe lm and 3 vessel cad, continue aspirin, coreg, heparin drip, statin held due to elevated lfts; strongly advised to dc smoking/tobacco and drugs, f/u echo and carotid us results Problem Qualifiers (1) COPD (chronic obstructive pulmonary disease): Qualified Codes: J43.9 - Emphysema, unspecified (2) Diabetes mellitus: Qualified Codes: E11.69 - Type 2 diabetes mellitus with other specified complication (3) Coronary artery disease with unstable angina pectoris: Qualified Codes: I25.110 - Atherosclerotic heart disease of [place] coronary artery with unstable angina pectoris Aleksey Rich MD August 04, 2017 14:27
--- NOTE | 2017-08-04 14:53 | PD.CAR.PN ---
CVT Progress Note Subjective/Hospital Course: 71-year-old patient with history of hypertension, osteoarthritis who was recently seen in the emergency department on 08/01 for left shoulder pain. They did an x-ray which showed moderate to severe osteoarthritis. She was sent home on Mobic. She said the pain is a constant ache exacerbated with movement. She went to see her primary care physician, Dr. Emerson, who sent her here for cardiac workup. Her EKG did show some poor R-wave progression. Her troponin was 0.11. She was ruled in for a non-STEMI and she went to the crime lab analyst, per , which showed ejection fraction of 45%, left main disease of 60%, proximal LAD 95%, mid distal LAD 95%, OM 75%, the RCA 75%. We were consulted to evaluate for coronary artery bypass grafting. PAST MEDICAL HISTORY: Includes hypertension, osteoarthritis, diabetes mellitus, hypothyroidism, hyperlipidemia and COPD. Urine drug screen + cocaine which admits to snorting once a month and regular marijuana use 08/04 carotid US R&L < 50% stenosis leg vein mapping ( left Jackson's cyst ) mild elevated LFT's trending down ( Hep panel negative ) scheduled for surgery in am sts data discussed with pt RISK SCORES About the STS Risk Calculator Procedure: CAB Only Risk of Mortality: 1.304% Morbidity or Mortality: 16.506% Long Length of Stay: 7.429% Short Length of Stay: 32.67% Permanent Stroke: 1.402% Prolonged Ventilation: 12.735% DSW Infection: 0.571% Renal Failure: 3.296% Reoperation: 5.15% Objective: GENERAL: SKIN: Warm and dry. HEAD: Normocephalic. EYES: No scleral icterus. No injection or drainage. NECK: Supple, trachea midline. No JVD or lymphadenopathy. CARDIOVASCULAR: Regular rate and rhythm without murmurs, gallops, or rubs. RESPIRATORY: Breath sounds equal bilaterally. No accessory muscle use. GASTROINTESTINAL: Abdomen soft, non-tender, nondistended. MUSCULOSKELETAL: No cyanosis, or edema. BACK: Nontender without obvious deformity. No CVA tenderness. Vital Signs Date Time Temp Pulse Resp B/P (MAP) Pulse Ox O2 Delivery O2 Flow Rate FiO2 08/04/17 12:00 80 08/04/17 12:00 98.2 79 16 112/64 (80) 96 08/04/17 11:00 94 08/04/17 10:00 80 08/04/17 09:00 88 08/04/17 08:00 81 08/04/17 08:00 98.1 78 16 102/56 (71) 96 08/04/17 07:00 72 08/04/17 06:40 18 08/04/17 06:00 70 08/04/17 05:00 68 08/04/17 04:00 79 08/04/17 03:09 72 08/04/17 03:05 98.4 66 17 125/62 (83) 97 08/04/17 02:26 71 08/04/17 01:45 79 114/59 08/04/17 01:30 80 122/66 08/04/17 01:09 64 08/04/17 00:08 57 08/03/17 23:08 98.3 69 18 120/68 (85) 97 08/03/17 23:00 69 08/03/17 22:23 68 08/03/17 21:00 62 08/03/17 20:00 88 08/03/17 19:56 98.1 68 19 176/84 (114) 97 08/03/17 19:30 78 174/83 08/03/17 19:15 75 179/80 08/03/17 19:09 19 08/03/17 19:09 18 08/03/17 19:07 75 184/87 08/03/17 19:00 71 08/03/17 18:57 68 183/80 08/03/17 18:49 71 154/70 08/03/17 18:00 62 08/03/17 17:00 60 08/03/17 16:51 98.0 67 20 174/78 (110) 98 08/03/17 16:45 68 08/03/17 15:36 91 Nasal Cannula 2.00 Labs: Laboratory Tests Test 08/04/17 06:47 08/04/17 13:49 Activated Partial Thromboplast Time 49.3 SEC (24.3-30.1) Troponin I 0.19 NG/ML (0.02-0.05) 0.17 NG/ML (0.02-0.05) Result Diagram: 5/31/18 0055 5/31/18 0055 (1) NSTEMI (non-ST elevated myocardial infarction) Plan: ASA BB heparin gtt for surgery in am (2) COPD (chronic obstructive pulmonary disease) Plan: Spiriva nebs (3) Diabetes mellitus Plan: insulin SS HGB A1C 5.8 (4) Coronary artery disease with unstable angina pectoris (5) Tobacco abuse Plan: cessation (6) LFT elevation Plan: hep panel neg indices trending down (7) Illicit drug use Plan: cessation Problem Qualifiers (1) COPD (chronic obstructive pulmonary disease): Qualified Codes: J43.9 - Emphysema, unspecified (2) Diabetes mellitus: Qualified Codes: E11.69 - Type 2 diabetes mellitus with other specified complication (3) Coronary artery disease with unstable angina pectoris: Qualified Codes: I25.110 - Atherosclerotic heart disease of [place] coronary artery with unstable angina pectoris Lili Nayak August 04, 2017 14:53
[2017-08-04 16:01] LABS: HEMOGLOBIN A1C 5.8 % (4.3-6.0)
[2017-08-04] MEDS ORDERED: METOPROLOL TARTRATE 25 MG TAB PO PRN (21:15)
[2017-08-04] MEDS ORDERED: LACTATED RINGER'S 1000 ML IV PRN (21:15)
[2017-08-04] MEDS ORDERED: INSULIN HUMAN REGULAR 1,000 UNITS/10 ML VIAL SQ PRN (21:15)
[2017-08-04] MEDS ORDERED: CHLORHEXIDINE GLUCONATE 2 % 1 PACK (2 CLOTHS) TOPICAL PRN (21:15)
[2017-08-04] MEDS ORDERED: POVIDONE IODINE 5% (ANTISEPSIS KIT) 4 APPLICATIONS EACH NARE PRN (21:15)
[2017-08-04] MEDS ORDERED: SODIUM CHLORID 0.9% 500 ML IV PRN (21:15)
[2017-08-04] MEDS: BACLOFEN 10 MG TAB PO SCH (22:23)
[2017-08-04] MEDS: HEPARIN 25,000 UNITS-D5W 250 ML - PREMIX IV PRN (22:28)
[2017-08-05] VITALS (12 sets, daily range): BP systolic 106–136; BP diastolic 52–79; PULSE 62–89; RESP 15–22; TEMP 97.8–98.9; O2SAT 93–99
[2017-08-05] MEDS: CARVEDILOL 3.125 MG TAB PO SCH ×2 (04:00→21:00)
[2017-08-05] MEDS: LEVOTHYROXINE SODIUM 200 MCG TAB PO SCH (04:00)
[2017-08-05] MEDS ORDERED: HEPARIN SODIUM - SQ 10,000 UNITS/ML VIAL ONE (06:46)
[2017-08-05] MEDS ORDERED: ceFAZolin 2 GM PREMIX 50 ML ONE (06:47)
[2017-08-05] MEDS ORDERED: VANCOMYCIN HCL 1000 MG VIAL ONE (06:47)
[2017-08-05] MEDS: INSULIN ASPART SUPPLEMENTAL SCALE SQ SCH ×4 (07:36→21:00)
--- NOTE | 2017-08-05 08:34 | EKG ---
Date Performed: 08/03/2017 Time Performed: 17:47:10 PTAGE: 71 years EKG: Sinus bradycardia Possible inferior infarct - age undetermined QRS changes V3/V4 may be due to LVH but cannot rule out anterior infarct Low QRS voltages in precordial leads Abnormal ECG PREVIOUS TRACING : 08/03/2017 12.02 DOCTOR: Aleksey Rich Interpretating Date/Time 08/05/2017 08:34:02
--- NOTE | 2017-08-05 08:34 | EKG ---
Date Performed: 08/03/2017 Time Performed: 12:02:03 PTAGE: 71 years EKG: Sinus rhythm Nonspecific ST and T wave abnormalities ABNORMAL ECG NO PREVIOUS TRACING DOCTOR: Aleksey Rich Interpretating Date/Time 08/05/2017 08:33:54
--- NOTE | 2017-08-05 08:34 | EKG ---
Date Performed: 08/04/2017 Time Performed: 05:50:58 PTAGE: 71 years EKG: Sinus rhythm . Possible inferior infarct - age undetermined Low QRS voltages in limb leads Since the previous trac ing, no significant change noted Abnormal ECG PREVIOUS TRACING : 08/03/17 DOCTOR: Aleksey Rich Interpretating Date/Time 08/05/2017 08:34:19
[2017-08-05] MEDS: amLODIPine BESYLATE 5 MG TAB PO SCH (09:00)
[2017-08-05] MEDS: DOCUSATE SODIUM 50 MG/SENNA 8.6 MG TAB PO SCH ×2 (09:00→21:00)
[2017-08-05] MEDS: prednisoLONE ACETATE 1% OPHT SUSP 5 ML BTL EACH EYE SCH (09:00)
[2017-08-05] MEDS: TIOTROPIUM BROMIDE 18 MCG INH INH SCH (09:00)
--- NOTE | 2017-08-05 11:58 | PD.OP ---
cc: Aleksey Rich MD; Rupali Lizarraga MD Operative Report Date of Surgery: Aug 05, 2017 Preoperative Diagnosis: Postoperative Diagnosis: Procedure: 1. Urgent Off-pump Coronary Artery Bypass Grafting x 2 with Left Internal Mammary Artery (EARL) to Left Anterior Descending (LAD), reverse saphenous vein graft to the Obtuse Marginal 1 (OM1) branch of the Left Circumflex Coronary Artery 2. Left Leg Endoscopic Vein [place] 3. Intraoperative Vein Mapping. Surgeon: Rupali Lizarraga Petroleum Analyst(s): Jaye Ontiveros Operation and Findings: PREPROCEDURE DIAGNOSES 1. Severe Multi Vessel Coronary Artery Disease. 2. Stable Angina 3. Drug Use POSTPROCEDURE DIAGNOSES Same SURGICAL PROCEDURE 1. Urgent Off-pump Coronary Artery Bypass Grafting x 2 with Left Internal Mammary Artery (EARL) to Left Anterior Descending (LAD), reverse saphenous vein graft to the Obtuse Marginal 1 (OM1) branch of the Left Circumflex Coronary Artery 2. Left Leg Endoscopic Vein [place] 3. Intraoperative Vein Mapping. SURGEON Rupali Lizarraga MD SET UP MECHANIC AUTOMATIC LINE JOLIE Hardy ANESTHESIA General endotracheal INTERNET [employer] SPECIALIST GLENNA Garcia MD PREPARATION ChloraPrep. COUNTS Needle, sponge, and instrument counts were correct. DRAINS Two 32-[place] mediastinal tubes. COMPLICATIONS None. INDICATIONS FOR PROCEDURE The patient is a 71-year-old presenting with chest pain and multi-vessel CAD. The patient is being brought to the operating room for surgical revascularization therapy. PROCEDURE Patient was brought to the operating room and placed supine on the OR table. Following the induction of adequate general endotracheal anesthesia and placement of appropriate monitoring devices, intraoperative vein mapping was performed which revealed suitable-caliber conduit in bilateral lower extremities. The patient was then prepped and draped in standard sterile fashion. Next, 2500 units of intravenous heparin was given. The left greater saphenous vein was harvested endoscopically. This appeared to be a useable- caliber conduit. Simultaneously, a median sternotomy was performed and the left internal mammary artery dissected free off the posterior sternal table. The patient was systemically heparinized and anticoagulation monitored by serial ACT measurements. The internal mammary artery had good pulsatile flow and was a good-caliber conduit. The pericardium was then divided in the midline, the cradle was created and targets analyzed. At this point, all anastomoses were performed in a beating-heart fashion using the Maquet stabilizing system. The left internal mammary artery was anastomosed to the mid LAD (2.5 mm) in an end- to-side fashion using 7-0 Prolene. The LAD was very heavily and diffusely calcified vessel. Segment of saphenous vein graft was then anastomosed to the OM1 (2 mm) in an end-to-side fashion using 7-0 Prolene. The proximal anastomosis was then performed to the ascending aorta using a running 6-0 Prolene. All anastomotic sites were inspected and appeared to be hemostatic and patent. Protamine solution was given. Strict hemostasis was assured. The closure was undertaken. 2 chest tubes were placed. The pericardium was reapproximated in the midline. The sternum was approximated using sternal wires. The muscular and fascial layer were then closed in 3 layers. The endoscopic vein harvest site was closed in 2 layers. The patient tolerated the procedure well and was transferred to CVICU in stable condition. Rupali Lizarraga MD Aug 05, 2017 11:58
[2017-08-05] MEDS ORDERED: CALCIUM CHLORIDE INJ 1 GM in SODIUM CHLORIDE 0.9% INJ 100 ML IV PRN (12:00)
[2017-08-05] MEDS ORDERED: CLEVIDIPINE INJ 50 ML IV PRN (12:00)
[2017-08-05] MEDS ORDERED: AMINOCAPROIC ACID INJ 250 MG/ML 20 ML VIAL IV ONE (12:00)
[2017-08-05] MEDS ORDERED: MAGNESIUM SULFATE 1 GM/2 ML VIAL IV ONE (12:00)
[2017-08-05] MEDS ORDERED: PROTAMINE SULFATE 50 MG/5 ML VIAL IV ONE (12:00)
[2017-08-05] MEDS ORDERED: ONDANSETRON ODT 4 MG TAB PO PRN (12:00)
[2017-08-05] MEDS: SODIUM CHLORIDE 0.9% FLUSH 10 ML FLUSH IV FLUSH SCH ×2 (12:00→21:00)
[2017-08-05] MEDS ORDERED: PHENYLEPH/NS 1000 MCG/10 ML SYR IV ONE (12:00)
[2017-08-05] MEDS ORDERED: RESP: RACEPINEPHRINE 2.25% 0.5 ML NEB NEB PRN (12:00)
[2017-08-05] MEDS ORDERED: RESP: ALBUTEROL 2.5 MG/IPRATROPIUM 0.5 MG NEB (PRN) NEB (12:00)
[2017-08-05] MEDS ORDERED: DEXTROSE 5% IN WATER 100ML INJ 100 ML IV ONE (12:00)
[2017-08-05] MEDS ORDERED: SODIUM CHLOR 0.9% 250 ML INJ 500 ML IV ONE (12:00)
[2017-08-05] MEDS ORDERED: KETOROLAC TROMETHAMINE 30 MG/ML (IVP) VIAL IV PUSH PRN (12:00)
[2017-08-05] MEDS ORDERED: ADENOSINE IV SOLN 3 MG/ML 2 ML VIAL IV PUSH ONE (12:00)
[2017-08-05] MEDS ORDERED: SODIUM CHLORIDE 0.9% FLUSH 10 ML FLUSH IV FLUSH PRN (12:00)
[2017-08-05] MEDS ORDERED: ACETAMINOPHEN 325 MG TAB PO PRN (12:00)
[2017-08-05] MEDS ORDERED: POTASSIUM CHLOR 20 MEQ PREMIX 100 ML IV PRN ×3 (12:00)
[2017-08-05] MEDS ORDERED: ARTIFICIAL TEARS OPTH OINT 3.5 APPLIC/3.5 GM TUBO EACH EYE ONE (12:00)
[2017-08-05] MEDS ORDERED: POTASSIUM CHLORIDE 20 MEQ CONTROLLED RELEASE TAB PO PRN ×2 (12:00)
[2017-08-05] MEDS ORDERED: NITROGLYCERIN 50 MG/DEXTROSE 5% SOLN 250 ML BTL IV ONE (12:00)
[2017-08-05] MEDS ORDERED: SODIUM CHLORIDE 0.9% INJ 200 ML IV ONE (12:00)
[2017-08-05] MEDS ORDERED: INSULIN REGULAR (IV INFUSION) 100 UNITS in SODIUM CHLORIDE 0.9% INJ 99 ML IV PRN (12:00)
[2017-08-05] MEDS ORDERED: SODIUM BICARBONATE 8.4% SOLN 50 MEQ/50 ML VIAL IV PUSH PRN ×2 (12:00)
[2017-08-05] MEDS ORDERED: HEPARIN SODIUM - SQ 10,000 UNITS/ML VIAL SQ ONE (12:00)
[2017-08-05] MEDS ORDERED: ePHEDrine/NS 25 MG/5 ML SYRINGE IV ONE (12:00)
[2017-08-05] MEDS ORDERED: ALBUMIN 5% INJ 250 ML IV PRN (12:00)
[2017-08-05] MEDS ORDERED: DEXMEDETOMIDINE INJ 200 MCG in SODIUM CHLORIDE 0.9% INJ 50 ML IV PRN (12:00)
[2017-08-05] MEDS ORDERED: ACETAMINOPHEN 650 MG SUPP RECTAL PRN (12:00)
[2017-08-05] MEDS ORDERED: NORMOSOL R INJ 2,000 ML IV ONE (12:00)
[2017-08-05] MEDS ORDERED: PHENYLEPHRINE INJ 40 MG in DEXTROSE 5% IN WATE 500 ML INJ 496 ML IV PRN ×2 (12:00)
[2017-08-05] MEDS ORDERED: MORPHINE SULFATE 4 MG/ML INJ IV PUSH PRN (12:00)
[2017-08-05] MEDS ORDERED: CALCIUM CHLORIDE 10% SOLN 1 GRAM/10 ML SYR IV ONE (12:00)
[2017-08-05] MEDS ORDERED: DEXTROSE 50% IN WATER 50 ML VIAL(D50) IV PUSH PRN (12:00)
[2017-08-05] MEDS ORDERED: METOPROLOL TARTRATE 5 MG/5 ML VIAL IV PUSH PRN (12:00)
[2017-08-05] MEDS ORDERED: VECURONIUM BROMIDE 10 MG VIAL IV ONE (12:00)
[2017-08-05] MEDS ORDERED: MAGNESIUM SULFATE INJ 2 GM in SODIUM CHLORIDE 0.9% INJ 100 ML IV PRN ×4 (12:00)
[2017-08-05] MEDS ORDERED: hydrALAZINE HCL 20 MG/ML VIAL IV PUSH PRN (12:00)
[2017-08-05] MEDS ORDERED: MEPERIDINE HCL 25 MG/ML VIAL IV PUSH PRN (12:00)
[2017-08-05] MEDS ORDERED: SODIUM BICARBONATE 8.4% INJ 50 MEQ/50 ML SYR IV ONE (12:00)
[2017-08-05] MEDS ORDERED: DEXMEDETOMIDINE HCL 200 MCG/2 ML VIAL IV ONE (12:00)
[2017-08-05] MEDS ORDERED: LACTATED RINGER'S 1000 ML INJ 1,000 ML IV ONE (12:00)
[2017-08-05] MEDS ORDERED: CALCIUM CHLORIDE 10% 1 GRAM/10 ML VIAL IV PUSH PRN (12:00)
[2017-08-05] MEDS ORDERED: LACTATED RINGER'S 1000 ML INJ 500 ML IV PRN (12:15)
[2017-08-05] MEDS ORDERED: MIDAZOLAM HCL 2 MG/2 ML VIAL ONE ×2 (12:20)
[2017-08-05] MEDS ORDERED: fentaNYL CITRATE 250 MCG/5 ML AMP ONE ×2 (12:20)
[2017-08-05] MEDS ORDERED: DOPamine 800 MG/500 ML INJ 500 ML IV PRN (12:30)
[2017-08-05] MEDS ORDERED: DOBUTamine PREMIX DRIP 250 ML IV PRN (12:30)
[2017-08-05] MEDS ORDERED: NITROGLYCERIN-D5W 50 MG/250 ML 250 ML IV PRN (12:45)
--- NOTE | 2017-08-05 12:59 | HHI.FF ---
Face to Face Verification Diagnosis: (1) S/P CABG x 2 (2) Osteoarthritis (3) Hypertension (4) Diabetes mellitus (5) COPD (chronic obstructive pulmonary disease) (6) Coronary artery disease with unstable angina pectoris Home Health Nursing Order: Signs/symptoms of disease process Diabetic education Medication education-adverse effect Wound care and dressing changes Nursing assessment with vital signs Instructions: Heart and Vascular Surgery patients *Special attention to sternal dressing Mandatory frequency Assess and evaluation, 4 days in a row The next week 3X week 2 times a week for 4 weeks 1 time a week for 5 weeks Schedule Heart and Vascular patients for full 60 day certification period Initial visit Review Open Heart Surgery Discharge Instructions (Sternal precautions, Activity, Elastic hose, Incision care, Driving, Incentive spirometry, Smoking, [place], Work and other) Need Betadine to paint incision Medication reconciliation Importance of follow up care/ check on appointments Make calendar record temperature daily When to call [facility] nurse, review instructions, phone list Incentive Spirometry, demonstration Visit 1- Begin discharge instruction for patient family and/ or caregiver using teach back method- Signs and symptoms of infection Disease characteristics Medicines and side effects Foods and nutrition/ appetite Infection control/ hand washing/ hygiene Visit 2- Continue teaching Discharge instructions- include additional information on smoking cessation , sternal dressing (sternal vac) Visit 3- Continue teaching- Cough and deep breathing, incision monitoring. Choose my plate Visit 4- Continue teaching- Discuss limitations Discuss how they are feeling Discuss progress toward goals Remaining visits- continue teaching and monitoring For any questions please call : Tuesday 8am-5pm Heart & Vascular Surgery Office ( Dr. Lizarraga & Dr. Prince), After Hours / Nights (5pm -8am) Weekends and Holidays Please call [facility] Cardiac Intermediate Care Unit (CIC) Charge Nurse PREVENA Single Use Negative Wound Therapy System Caregiver Instruction Sheet 1. A Prevena dressing system was applied to the chest incision during surgery , to promote wound healing. It works via a suction device (negative pressure wound therapy) to remove low to moderate levels of exudate (drainage) and infectious materials. We recommend that the device stay in place for up to seven days, from day of surgery. 2. Day of Surgery___08/05/17 Day of Removal ____08/12/17 3. The dressing should only be removed by a health intensive care medicine specialist. Please arrange removal of device to coincide with Home Health visit and or with Nursing staff at Rehab 4. If skin reddening or irritation of skin occurs, or excessive drainage, please notify the Cardiovascular Surgeons office at [phone]. 5. Light showering is permissible; however the pump should be disconnected and placed in safe location, where it will not get wet. The dressing should not be exposed to direct spray or submerged in water. No bath tub / shower only. Ensure the end of the tubing attached to the dressing is facing down so that water does not enter the top of the tube. 6. To remove Prevena dressing: press purple button to turn off device / remove the suction. Then disconnect the tubing from the pump. The fixation strips should be stretched away from the skin and the dressing lifted at one corner and peeled back until it has been fully removed. 7. After removal, it is ok to shower daily using liquid dial soap and clean wash cloth, rinse and pat dry, and leave incision open to air dry. For any concerns regarding Prevena dressing, and or wounds, please contact Maya Jordan, patient navigator at [phone] or notify the Cardiovascular Surgeons office at [phone]. Incentive spirometry Q1 hr x 10, while awake, also use acapella device hourly whole awake Sternal Breast Bone Precautions: NO pushing or pulling, ( pt must use sternal pillow to support chest with all activities and with coughing ( takes up to 3 months breast bone to heal ) All females to wear sternal bra , launder as needed Daily incision care: ok to shower daily, no tub bath. Wash all incisions with liquid dial soap, clean wash cloth to each site, rinse and pat dry. Observe for any signs of infection, such as drainage which is dark yellow, mendes, green or foul smelling. Immediately report to the surgeon any drainage from the chest incision, or legs, and for any abnormal drainage from the chest tube sites. Notify surgeon if any temp >101.5 degrees F. When specialty dressing removed/ or if you do not have one, continue to shower daily as above, then rinse and pat incision dry and paint with betadine daily x 5 days. Allow steri strips to fall off if you have any. Avoid lotions, creams, salves, oils, etc. for the first month Please see attached forms for additional instructions regarding post Open Heart specialty wound vacuum dressings. REINALDO or Prevena , Dressing to be removed by Nursing staff on __08/12/17 F/U appointment: as per DC instructions: PCP in 2 weeks, CV surgeon 2 weeks, Equipment Driver 3-4 weeks For any questions regarding incisions/ dressing / meds / post op care or above Symptoms, Tuesday 8am-5pm Heart & Vascular Surgery Office ( Dr. Lizarraga & Dr. Prince), After Hours / Nights (5pm -8am) Weekends and Holidays Please call [facility] Cardiac Intermediate Care Unit (CIC) Charge Nurse I have seen patient Casandra Welch on 08/05/17. My clinical findings support the need for the requested home health care services because: Deconditioned w/ increased weakness I certify that my clinical findings support that this patient is homebound because: Post-op weakness Lili Nayak Aug 05, 2017 12:59
[2017-08-05] MEDS ORDERED: Post-op Orders (for Pharmacy) OTHER ONE (13:00)
--- NOTE | 2017-08-05 13:03 | RADRPT ---
EXAM DATE: 08/05/2017 12:55 PM EDT AGE/SEX: 71 years / Female INDICATIONS: Post CABG CLINICAL DATA: This is the patient's initial encounter. Patient reports that signs and symptoms have been present for 1 day and indicates a pain score of Nonresponsive. MEDICAL/SURGICAL HISTORY: Cardiovascular disease. asthma CABG. COMPARISON: [facility] – [place], CHEST SINGLE AP, 08/03/2017. . FINDINGS: A single AP supine portable view of the chest was obtained and demonstrates interval median sternotom y. The patient has been intubated with the endotracheal tube tip approximately 4 cm above the jaek. A nasogastric tube is seen coursing through the esophagus. There is been placement of a left-sided c hest tube with no pneumothorax. There is a right internal jugular central venous catheter in place. T he heart size remains within normal limits. There is mild atelectasis in the left perihilar region. T here are no areas of consolidation or effusion. CONCLUSION: 1. Interval intubation and placement of right internal jugular central venous line with no pneumotho rax. 2. Atelectasis in the left perihilar region. Electronically signed by: Roger Fitzgerald MD 08/05/2017 1:02 PM EDT
[2017-08-05] MEDS: ACETAMINOPHEN 1000 MG/100 ML 100 ML IV SCH ×2 (13:35→17:03)
--- NOTE | 2017-08-05 14:13 | HHI.FPPN ---
Subjective Remarks No acute events overnight. VSS. Patient on the way to surgery this a.m. Anesthesiology at bedside. Patient states that she is feeling well. No complaints. (Tiffanie Duque MD R1) Objective Vitals Vital Signs Date Time Temp Pulse Resp B/P (MAP) Pulse Ox O2 Delivery O2 Flow Rate FiO2 08/05/17 13:52 93 Nasal Cannula 5 08/05/17 12:25 Nasal Cannula 40 08/05/17 12:25 96 40 08/05/17 12:15 98.9 62 15 117/74 (88) 98 110/52 (71) 08/05/17 12:11 98 50 08/05/17 12:05 50 08/05/17 07:00 72 08/05/17 04:00 97.8 77 18 133/60 (84) 97 08/05/17 04:00 77 08/05/17 00:00 98.9 76 18 134/79 (97) 98 08/05/17 00:00 78 08/04/17 21:05 98 08/04/17 20:00 99.9 80 16 118/68 (85) 98 08/04/17 20:00 80 08/04/17 19:00 83 08/04/17 19:00 80 118/68 08/04/17 18:00 86 08/04/17 17:00 84 08/04/17 16:21 20 08/04/17 16:00 98.6 72 18 114/59 (77) 96 08/04/17 16:00 80 08/04/17 15:00 106 I/O 08/04/17 08/04/17 08/04/17 08/05/17 08/05/17 08/05/17 07:00 15:00 23:00 07:00 15:00 23:00 Intake Total 240 ml 976 ml 816 ml 3950 ml Output Total 1800 ml 450 ml 1000 ml Balance -1560 ml 526 ml 816 ml 2950 ml Intake Oral 240 ml 630 ml 480 ml IV Total 346 ml 336 ml Autotransfusion 250 ml Other 3700 ml Output Urine Total 1800 ml 450 ml 500 ml Estimated Blood Loss 500 ml # Voids 4 # Bowel Movements 0 0 (Tiffanie Duque MD R1) Result Diagram: 08/04/175408/04/1754 Objective Remarks GENERAL: Well-nourished, well-developed patient. No acute distress. SKIN: Warm and dry. No rash. EYES: No scleral icterus. No injection or drainage. PERRLA. EOMI. HENT: Normocephalic. Atraumatic. MMM. NECK: No visible JVD or lymphadenopathy. CARDIOVASCULAR: Warm and well perfused. RESPIRATORY: Normal respiratory effort. GASTROINTESTINAL: Abdomen nondistended. MUSCULOSKELETAL: Strength grossly WNL. BACK: Without obvious deformity. NEURO/PSYCH: Afocal. Awake, alert, and oriented x3. (Tiffanie Duque MD R1) A/P Assessment and Plan Ms. Welch is a 71-year-old female presenting with chest pain found to have severe two-vessel disease admitted for coronary artery bypass grafting. Discharge Planning Surgery today Await Cardiology clearance Anticipate discharge in 2-3 days (Tiffanie Duque MD R1) Attending Attestation Patient examined independently and case discussed with resident physicians I have read the above note and agree with the assessment/plan as discussed with me I was involved in all medical decision making for this patient Trevor Moore MD (Trevor Moore MD) Problem List: (1) Coronary artery disease with unstable angina pectoris ICD Codes: I25.110 - Atherosclerotic heart disease of [place] coronary artery with unstable angina pectoris Status: Acute Plan: Patient scheduled for coronary artery bypass graft with cardiothoracic surgery this morning Status post cardiac catheterization on 08/03/17: -Severe left main and three-vessel coronary disease and a right dominant system. Mildly reduced LV systolic function of 45% with severe hypokinesis to akinesis of the apex. EKG: Sinus rhythm with Q waves of the inferior leads and poor R wave progression (NSTEMI) Troponin: 0.11 -0.18 - 0.19 2D echocardiogram and venous mapping ordered and pending Medications: -Carvedilol 3.125 mg twice daily -Heparin drip per protocol -Nitroglycerin drip per protocol -Daily aspirin -Morphine as needed for pain -Oxygen as needed (2) LFT elevation ICD Codes: R79.89 - Other specified abnormal findings of blood chemistry Status: Acute Plan: LFTs remain elevated but are stable -Hepatitis panel negative -Continue to monitor -Possibly related to illicit drug use -Hold statin at this time -Per chart review, no previous studies available (3) Bibasilar crackles ICD Codes: R09.89 - Other specified symptoms and signs involving the circulatory and respiratory systems Status: Acute Plan: Chest x-ray shows minimal bibasilar atelectasis without significant edema -s/p treated with Lasix 40 mg IV 1 08/04 Cardiac catheterization shows ejection fraction of 45% Echocardiogram pending in preparation of coronary artery bypass grafting Incentive spirometry ordered (4) Diabetes mellitus ICD Codes: E11.9 - Type 2 diabetes mellitus without complications Status: Chronic Plan: Bedside glucose 130,201,201,117 -Required 3 units sliding scale insulin -A1c: 5.8% Medications: -Hold metformin and glipizide -Sliding scale insulin per protocol (5) COPD (chronic obstructive pulmonary disease) ICD Codes: J44.9 - Chronic obstructive pulmonary disease, unspecified Status: Chronic Plan: Medications: -Albuterol twice daily -Spiriva daily -DuoNeb as needed for shortness of breath (6) Hypertension ICD Codes: I10 - Essential (primary) hypertension Status: Chronic Plan: Medications: -Continue amlodipine 5 mg daily -Continue carvedilol 3.125 mg p.o. twice daily -Home lisinopril held -Clonidine as needed for blood pressure greater than 160/90 (7) Osteoarthritis ICD Codes: M19.90 - Unspecified osteoarthritis, unspecified site Status: Chronic Plan: Medications: -Continue baclofen 10 mg daily -Hold Mobic -Hold tramadol -Morphine as needed as above (8) Hypothyroidism ICD Codes: E03.9 - Hypothyroidism, unspecified Status: Chronic Plan: -TSH: 0.014, Free T3 3.25 Medications: -Levothyroxine 200 mcg daily (9) Hyperlipidemia ICD Codes: E78.5 - Hyperlipidemia, unspecified Status: Chronic Plan: -Lipid profile: Total Cholesterol 139, LDL 49, HDL 72.7 Medications: -Defer statin at this time as LFTs are elevated (continue to monitor) (10) Tobacco abuse ICD Codes: Z72.0 - Tobacco use Status: Acute Plan: -Thoroughly educated patient risks of tobacco abuse -Patient declines nicotine patch at this time (11) Illicit drug use ICD Codes: F19.90 - Other psychoactive substance use, unspecified, uncomplicated Status: Acute Plan: UDS: Positive for benzodiazepines, cocaine, and cannabinoids - Strongly counseled on cessation of illicit drugs including cocaine and marijuana - Patient previously administered beta-ligia despite cocaine use; continue to monitor (12) No contraindication to deep vein thrombosis (DVT) prophylaxis ICD Codes: Z78.9 - Other specified health status Status: Acute Plan: -Heparin drip per protocol -SCDs (13) Nutrition, metabolism, and development symptoms ICD Codes: R63.8 - Other symptoms and signs concerning food and fluid intake Status: Acute Plan: -Diet: Transition to heart healthy diet after surgery today -Fluids: Patient appears hydrated on exam heparin and nitro glycerin infusions per protocol -Electrolytes: Within normal limits, continue to monitor -Prophylaxis: Clonidine as needed for BP greater than 160/90, morphine as needed for pain, Zofran as needed for nausea/vomiting, constipation protocol, famotidine as needed for reflux (Tiffanie Duque MD R1) Problem Qualifiers (1) Coronary artery disease with unstable angina pectoris: Qualified Codes: I25.110 - Atherosclerotic heart disease of [place] coronary artery with unstable angina pectoris (2) Diabetes mellitus: Qualified Codes: E11.69 - Type 2 diabetes mellitus with other specified complication (3) COPD (chronic obstructive pulmonary disease): Qualified Codes: J43.9 - Emphysema, unspecified (4) Hypertension: Qualified Codes: I10 - Essential (primary) hypertension (5) Osteoarthritis: Qualified Codes: M15.0 - Primary generalized (osteo)arthritis (6) Hypothyroidism: Qualified Codes: E89.0 - Postprocedural hypothyroidism (7) Hyperlipidemia: Qualified Codes: E78.2 - Mixed hyperlipidemia Tiffanie Duque MD R1 Aug 05, 2017 14:13 Trevor Moore MD Aug 05, 2017 17:05
[2017-08-05] MEDS: ceFAZolin 2 GM PREMIX 50 ML IV SCH (15:50)
[2017-08-05] MEDS: RESP: ALBUTEROL 2.5 MG/IPRATROPIUM 0.5 MG NEB (SCH) NEB ×2 (17:01→21:22)
--- NOTE | 2017-08-05 17:03 | PD.CARD.PN ---
Subjective Subjective Remarks asleep in nad, extubated Objective Medications Current Medications Medications (Trade) Dose Ordered Sig/Wagner Route Start Time Stop Time Status Last Admin (Proair Hfa Inh) 1 puff BID PRN INH 08/03/17 14:00 (Norvasc) 5 mg DAILY PO 08/04/17 09:00 08/04/17 08:18 (Lioresal) 10 mg HS PO 08/03/17 21:00 08/04/17 22:23 (Synthroid) 200 mcg DAILY@0600 PO 08/04/17 06:00 08/05/17 04:00 (Pred Forte 1% Opth Susp) 1 drop DAILY EACH EYE 08/04/17 09:00 08/04/17 08:21 (Prinivil) 40 mg DAILY PO 08/04/17 09:00 Future Hold (Spiriva Inh) 18 mcg DAILY INH 08/04/17 09:00 08/04/17 08:20 (Ventolin Hfa Inh) 2 puff QID INH 08/03/17 18:00 Future Hold (Coreg) 3.125 mg Q12HR PO 08/03/17 21:00 08/05/17 04:00 Insulin Human Regular 100 units/ Sodium Chloride 100 ml @ 3 mls/hr TITRATE PRN IV 08/03/17 16:30 08/10/17 16:29 08/05/17 15:07 (Glucagon Inj) 1 mg UNSCH PRN OTHER 08/03/17 17:15 (NovoLOG SUPPLEMENTAL SCALE) 1 ACHS SLIDING SCALE SQ 08/03/17 21:00 08/04/17 11:33 (Catapres) 0.1 mg Q8HR PRN PO 08/03/17 17:15 (Morphine Inj) 1 mg Q3H PRN IV 08/04/17 00:30 08/04/17 06:22 (Morphine Inj) 3 mg Q3H PRN IV 08/04/17 00:30 (Narcan Inj) 0.4 mg UNSCH PRN IV PUSH 08/04/17 00:30 (Zofran Odt) 4 mg Q8H PRN PO 08/04/17 01:15 (Con[place]pc[place]-Colace) 1 tab BID PO 08/04/17 09:00 08/04/17 22:23 (Milk Of Magnesia Liq) 30 ml Q12H PRN PO 08/04/17 00:30 (Senokot) 17.2 mg Q12H PRN PO 08/04/17 00:30 (Dulcolax Supp) 10 mg DAILY PRN RECTAL 08/04/17 00:30 (Lactulose Liq) 30 ml DAILY PRN PO 08/04/17 00:30 (Pepcid) 10 mg BID PRN PO 08/04/17 00:30 (Duoneb Neb) 1 ampule Q6HR NEB PRN NEB 08/04/17 00:30 (Tylenol) 650 mg Q4H PRN PO 08/04/17 02:00 08/04/17 15:51 Lactated Ringer's 1,000 ml @ 30 mls/hr Q24H PRN IV 08/04/17 21:15 08/07/17 21:14 (Betadine 5% Antisepsis Kit) 1 applic PIERCING ARTIST PRN EACH NARE 08/04/17 21:15 08/07/17 21:14 (NovoLIN R INJ) See Protocol Table ... PIERCING ARTIST PRN SQ 08/04/17 21:15 08/07/17 21:14 (NS Flush) 2 ml BID IV FLUSH 08/05/17 12:00 08/05/17 12:00 (NS Flush) 2 ml UNSCH PRN IV FLUSH 08/05/17 12:00 Dexmedetomidine HCl 200 mcg/ Sodium Chloride 52 ml @ 3.9 mls/hr TITRATE PRN IV 08/05/17 12:00 08/05/17 15:10 Nitroglycerin/ Dextrose 250 ml @ 1.5 mls/hr TITRATE PRN IV 08/05/17 12:45 08/05/17 15:09 Dobutamine HCl/ Dextrose 250 ml @ 11.25 mls/ hr [id number] PRN IV 08/05/17 12:30 Dopamine HCl/ Dextrose 500 ml @ 8.438 mls/ hr TITRATE PRN IV 08/05/17 12:30 Phenylephrine HCl 40 mg/Dextrose 500 ml @ 30 mls/hr TITRATE PRN IV 08/05/17 12:00 Clevidipine 50 ml @ 2 mls/hr TITRATE PRN IV 08/05/17 12:00 08/05/17 14:52 Albumin Human 250 ml @ 250 mls/hr UNSCH PRN IV 08/05/17 12:00 Lactated Ringer's 500 ml @ 500 mls/hr Q1H PRN IV 08/05/17 12:15 (Aspirin Chew) 81 mg DAILY PO 08/06/17 09:00 (Plavix) 75 mg DAILY PO 08/06/17 09:00 (Protonix) 40 mg DAILY@06 PO 08/06/17 06:00 (Cordarone) 200 mg Q12HR PO 08/05/17 21:00 (Tylenol) 650 mg Q4H PRN PO 08/05/17 12:00 (Tylenol Supp) 650 mg Q4H PRN RECTAL 08/05/17 12:00 Acetaminophen 100 ml @ 400 mls/hr Q6H IV 08/05/17 12:00 08/06/17 06:14 08/05/17 13:35 (Morphine Inj) 1 mg Q10M PRN IV PUSH 08/05/17 12:00 (Demerol Inj) 12.5 mg Q4H PRN IV PUSH 08/05/17 12:00 ([place] 5-325 Mg) 1 tab Q3H PRN PO 08/05/17 12:00 (Toradol Inj) 15 mg Q6H PRN IV PUSH 08/05/17 12:00 08/07/17 11:59 (fentaNYL INJ) 25 mcg Q1H PRN IV PUSH 08/05/17 12:00 08/05/17 16:21 (Zofran Odt) 4 mg Q6H PRN PO 08/05/17 12:00 (Apresoline Inj) 10 mg Q4H PRN IV PUSH 08/05/17 12:00 (Lopressor Inj) 2.5 mg Q1H PRN IV PUSH 08/05/17 12:00 08/05/17 15:09 Potassium Chloride 100 ml @ 50 mls/hr UNSCH PRN IV 08/05/17 12:00 Potassium Chloride 100 ml @ 50 mls/hr UNSCH PRN IV 08/05/17 12:00 Potassium Chloride 100 ml @ 50 mls/hr UNSCH PRN IV 08/05/17 12:00 (KCl) 20 meq UNSCH PRN PO 08/05/17 12:00 (KCl) 40 meq UNSCH PRN PO 08/05/17 12:00 Magnesium Sulfate 2 gm/Sodium Chloride 104 ml @ 100 mls/hr UNSCH PRN IV 08/05/17 12:00 Magnesium Sulfate 2 gm/Sodium Chloride 104 ml @ 50 mls/hr UNSCH PRN IV 08/05/17 12:00 Calcium Chloride 1 gm/Sodium Chloride 110 ml @ 100 mls/hr UNSCH PRN IV 08/05/17 12:00 (Calcium Chloride Inj) 0.5 gm UNSCH PRN IV PUSH 08/05/17 12:00 Insulin Human Regular 100 units/ Sodium Chloride 100 ml @ 3 mls/hr TITRATE PRN IV 08/05/17 12:00 (D50w (Vial) Inj) 50 ml UNSCH PRN IV PUSH 08/05/17 12:00 Cefazolin Sodium/ Dextrose 50 ml @ 100 mls/hr Q8H IV 08/05/17 16:00 08/07/17 00:29 08/05/17 15:50 (Sodium Bicarbonate 8.4% Inj) 50 meq UNSCH PRN IV PUSH 08/05/17 12:00 (Sodium Bicarbonate 8.4% Inj) 100 meq UNSCH PRN IV PUSH 08/05/17 12:00 (Duoneb Neb) 1 ampule Q6HR NEB NEB 08/05/17 16:00 (Duoneb Neb) 1 ampule Q2HR NEB PRN NEB 08/05/17 12:00 (Racepinephrine 2.25% Neb) 0.5 ml UNSCH X1 PRN NEB 08/05/17 12:00 08/08/17 11:59 Vital Signs / I&O Vital Signs Date Time Temp Pulse Resp B/P (MAP) Pulse Ox O2 Delivery O2 Flow Rate FiO2 08/05/17 15:09 62 110/72 08/05/17 14:52 62 110/52 08/05/17 13:52 93 Nasal Cannula 5 08/05/17 12:25 Nasal Cannula 40 08/05/17 12:25 96 40 08/05/17 12:15 98.9 62 15 117/74 (88) 98 110/52 (71) 08/05/17 12:11 98 50 08/05/17 12:05 50 08/05/17 07:00 72 08/05/17 04:00 97.8 77 18 133/60 (84) 97 08/05/17 04:00 77 08/05/17 00:00 98.9 76 18 134/79 (97) 98 08/05/17 00:00 78 08/04/17 21:05 98 08/04/17 20:00 99.9 80 16 118/68 (85) 98 08/04/17 20:00 80 08/04/17 19:00 83 08/04/17 19:00 80 118/68 08/04/17 18:00 86 I/O 08/04/17 08/04/17 08/04/17 08/05/17 08/05/17 08/05/17 07:00 15:00 23:00 07:00 15:00 23:00 Intake Total 240 ml 976 ml 816 ml 3950 ml Output Total 1800 ml 450 ml 1000 ml Balance -1560 ml 526 ml 816 ml 2950 ml Intake Oral 240 ml 630 ml 480 ml IV Total 346 ml 336 ml Autotransfusion 250 ml Other 3700 ml Output Urine Total 1800 ml 450 ml 500 ml Estimated Blood Loss 500 ml # Voids 4 # Bowel Movements 0 0 Physical Exam GENERAL: SKIN: Warm and dry. HEAD: Normocephalic. EYES: No scleral icterus. No injection or drainage. NECK: Supple, trachea midline. No JVD or lymphadenopathy. CARDIOVASCULAR: Regular rate and rhythm without murmurs, gallops, or rubs. RESPIRATORY: Breath sounds equal bilaterally. No accessory muscle use. GASTROINTESTINAL: Abdomen soft, non-tender, nondistended. MUSCULOSKELETAL: No cyanosis, or edema. BACK: Nontender without obvious deformity. No CVA tenderness. Laboratory Laboratory Tests Test 08/04/17 19:20 08/05/17 04:12 Troponin I 0.15 NG/ML Activated Partial Thromboplast Time 62.2 SEC Imaging Last 24 hours Impressions Chest X-Ray 08/05/17 0000 Signed Impressions: CONCLUSION: 1. Interval intubation and placement of right internal jugular central venous line with no pneumothorax. 2. Atelectasis in the left perihilar region. Assessment and Plan Problem List: (1) NSTEMI (non-ST elevated myocardial infarction) ICD Codes: I21.4 - Non-ST elevation (NSTEMI) myocardial infarction Status: Acute (2) COPD (chronic obstructive pulmonary disease) ICD Codes: J44.9 - Chronic obstructive pulmonary disease, unspecified Status: Chronic (3) Diabetes mellitus ICD Codes: E11.9 - Type 2 diabetes mellitus without complications Status: Chronic (4) Coronary artery disease with unstable angina pectoris ICD Codes: I25.110 - Atherosclerotic heart disease of [place] coronary artery with unstable angina pectoris Status: Acute (5) Tobacco abuse ICD Codes: Z72.0 - Tobacco use Status: Acute (6) LFT elevation ICD Codes: R79.89 - Other specified abnormal findings of blood chemistry Status: Acute (7) Illicit drug use ICD Codes: F19.90 - Other psychoactive substance use, unspecified, uncomplicated Status: Acute Assessment and Plan 1.) NSTEMI - pod # 0, off pump 2 vessel cabg, extubated, off pressors, uo = 550 in past hour, strongly advised to dc smoking/tobacco and drugs Problem Qualifiers (1) COPD (chronic obstructive pulmonary disease): Qualified Codes: J43.9 - Emphysema, unspecified (2) Diabetes mellitus: Qualified Codes: E11.69 - Type 2 diabetes mellitus with other specified complication (3) Coronary artery disease with unstable angina pectoris: Qualified Codes: I25.110 - Atherosclerotic heart disease of [place] coronary artery with unstable angina pectoris Aleksey Rich MD Aug 05, 2017 17:03
[2017-08-05] MEDS: BACLOFEN 10 MG TAB PO SCH (21:00)
[2017-08-05] MEDS: AMIODARONE 200 MG TAB PO SCH (21:00)
[2017-08-06] VITALS (7 sets, daily range): BP systolic 128–148; BP diastolic 8–90; PULSE 11–111; RESP 16–20; TEMP 97.9–99.2; O2SAT 95–99
--- NOTE | 2017-08-06 04:32 | RADRPT ---
EXAM DATE: 08/06/2017 4:14 AM EDT AGE/SEX: 71 years / Female INDICATIONS: Shortness of breath, possible pulmonary disease. CLINICAL DATA: This is the patient's subsequent encounter. Patient reports that signs and symptoms h ave been present for 2 days and indicates a pain score of 10/10. MEDICAL/SURGICAL HISTORY: Asthma. Cardiovascular disease. CABG. [place] [facility] [place]. . FINDINGS: The patient is status post sternotomy. The heart size is normal. There is a mediastinal drain and lef t chest tube in place. There is a right internal jugular central line in place with tip overlying the SVC. This increased density at the medial right upper chest likely related to atelectasis or consoli dation. This is new. There is some mild increased density at the left base. CONCLUSION: New increased density at the medial right upper lung likely related to right upper lobe atelectasis o r consolidation. The abrupt change from the prior exam suggest atelectasis is more likely. Mild left lower lobe atelectasis or consolidation. Electronically signed by: Saul Love MD 08/06/2017 4:30 AM EDT
[2017-08-06] MEDS: RESP: ALBUTEROL 2.5 MG/IPRATROPIUM 0.5 MG NEB (SCH) NEB ×4 (04:34→21:34)
[2017-08-06 04:51] LABS: HEMATOCRIT 39.3 % (35.0-46.0); HEMOGLOBIN 13.3 GM/DL (11.6-15.3); MEAN CELL VOLUME 94.4 FL (80.0-100.0); MEAN CORPUSCULAR HEMOGLOBIN 31.9 PG (27.0-34.0); MEAN CORPUSCULAR HGB CONC 33.8 % (32.0-36.0); MEAN PLATELET VOLUME 10.5 FL (7.0-11.0); PLATELET COUNT 160 TH/MM3 (150-450); RED BLOOD COUNT 4.16 MIL/MM3 (4.00-5.30); WHITE BLOOD COUNT 10.6 TH/MM3 (4.0-11.0)
[2017-08-06] MEDS: LEVOTHYROXINE SODIUM 200 MCG TAB PO SCH (05:11)
[2017-08-06] MEDS: ACETAMINOPHEN 1000 MG/100 ML 100 ML IV SCH ×2 (05:11)
[2017-08-06] MEDS: PANTOPRAZOLE SOD 40 MG DELAYED RELEASE TAB PO SCH (05:12)
[2017-08-06 05:18] LABS: BICARBONATE 24.8 MEQ/L (21.0-32.0); CALCIUM 8.5 MG/DL (8.5-10.1); CREATININE 0.93 MG/DL (0.50-1.00); MAGNESIUM 2.1 MG/DL (1.5-2.5)
[2017-08-06] MEDS: INSULIN ASPART SUPPLEMENTAL SCALE SQ SCH ×4 (08:00→22:00)
[2017-08-06] MEDS: DOCUSATE SODIUM 50 MG/SENNA 8.6 MG TAB PO SCH (08:23)
[2017-08-06] MEDS: AMIODARONE 200 MG TAB PO SCH ×2 (08:23→20:34)
[2017-08-06] MEDS: ceFAZolin 2 GM PREMIX 50 ML IV SCH ×3 (08:24→16:34)
[2017-08-06] MEDS: ASPIRIN 81 MG CHEW TAB PO SCH (08:24)
--- NOTE | 2017-08-06 08:24 | HHI.FPPN ---
Subjective Remarks Patient was sitting up in a chair, eating breakfast. She did not sleep well last night due to pain at her surgical site, but she stated that diagnosis to look very good care of her. She also has a wet cough that she states has been going on since she had had thyroid surgery. Otherwise, she is doing okay. She denies fever or chills. She does not have chest pain. (Eko,Soco CASTANEDA R2) Objective Vitals Vital Signs Date Time Temp Pulse Resp B/P (MAP) Pulse Ox O2 Delivery O2 Flow Rate FiO2 08/06/17 08:00 97.9 105 16 130/75 (93) 98 133/72 (92) 08/06/17 08:00 105 08/06/17 03:00 98.6 83 20 138/81 (100) 99 148/73 (98) 08/06/17 03:00 83 08/06/17 02:00 18 08/06/17 00:30 20 08/05/17 23:00 98.3 89 22 134/67 (89) 99 136/78 (97) 08/05/17 23:00 72 08/05/17 21:23 98 Simple Mask 8.00 08/05/17 19:00 72 08/05/17 19:00 97.8 72 18 118/70 (86) 99 106/69 (81) 08/05/17 16:00 80 08/05/17 16:00 98.3 62 16 113/71 (85) 98 110/65 (80) 08/05/17 15:09 62 110/72 08/05/17 14:52 62 110/52 08/05/17 13:52 93 Nasal Cannula 5 08/05/17 12:25 Nasal Cannula 40 08/05/17 12:25 96 40 08/05/17 12:15 98.9 62 15 117/74 (88) 98 110/52 (71) 08/05/17 12:11 98 50 08/05/17 12:05 50 I/O 08/05/17 08/05/17 08/05/17 08/06/17 08/06/17 08/06/17 07:00 15:00 23:00 07:00 15:00 23:00 Intake Total 816 ml 3950 ml 40 ml 370 ml Output Total 1000 ml 855 ml 450 ml Balance 816 ml 2950 ml -815 ml -80 ml Intake Oral 480 ml 40 ml 100 ml IV Total 336 ml 270 ml Autotransfusion 250 ml Other 3700 ml Output Urine Total 500 ml 600 ml 350 ml Gastric Drainage Total 100 ml Drainage Total 155 ml 100 ml Estimated Blood Loss 500 ml # Voids 4 # Bowel Movements 0 0 0 (Soco Torres MD R2) Result Diagram: 08/06/17 0420 08/06/17 0420 Imaging Last Impressions Chest X-Ray 08/06/17 0500 Signed Impressions: CONCLUSION: New increased density at the medial right upper lung likely related to right up per lobe atelectasis or consolidation. The abrupt change from the prior exam harris ggest atelectasis is more likely. Mild left lower lobe atelectasis or consolidation. Lower Extremity Ultrasound 08/03/17 0000 Signed Impressions: CONCLUSION: 1. Lower extremity venous mapping, as above. Carotid Artery Ultrasound 08/03/17 0000 Signed Impressions: CONCLUSION: 1. Right Internal Carotid Artery: Findings indicate <50% stenosis. 2. Left Internal Carotid Artery: Findings indicate <50% stenosis. Objective Remarks GENERAL: Well-nourished, well-developed patient, sitting up in a chair, eating breakfast. No acute distress. 6L by NC SKIN: Warm and dry. No rash. EYES: No scleral icterus. No injection or drainage. PERRLA. EOMI. CHEST: Surgical incision site covered with specialized foam dressing CARDIOVASCULAR: RRR. Warm and well perfused. RESPIRATORY: Rhonchi throughout and upper airway transmitted sounds GASTROINTESTINAL: NTND. Positive bowel sounds MUSCULOSKELETAL: Strength grossly WNL. NEURO/PSYCH: Afocal. Awake, alert, and oriented x3. (Soco Torres MD R2) A/P Assessment and Plan Ms. Welch is a 71-year-old female that presented with chest pain found to have severe two-vessel disease admitted for coronary artery bypass grafting. Discharge Planning Surgery on 08/05/2017 Await Cardiology clearance Anticipate discharge in 2-3 days (Soco Torres MD R2) Attending Attestation Pt. examined independently and case discussed with resident physicians. I have read the above note and agree with the assessment and plan as discussed with me. I was involved in all medical decision making for this patient. Trevor Moore MD (Trevor Moore MD) Problem List: (1) Coronary artery disease with unstable angina pectoris ICD Codes: I25.110 - Atherosclerotic heart disease of [place] coronary artery with unstable angina pectoris Status: Acute Plan: -POD1 CABG on 08/05/2017 * Urgent Off-pump Coronary Artery Bypass Grafting x 2 with Left Internal Mammary Artery (EARL) to Left Anterior Descending (LAD), reverse saphenous vein graft to the Obtuse Marginal 1 (OM1) branch of the Left Circumflex Coronary Artery Status post cardiac catheterization on 08/03/17: -Severe left main and three-vessel coronary disease and a right dominant system. Mildly reduced LV systolic function of 45% with severe hypokinesis to akinesis of the apex. Medications: -Carvedilol 3.125 mg twice daily -Heparin drip per protocol -Nitroglycerin drip per protocol -Daily aspirin -Morphine as needed for pain -Oxygen as needed LABS/IMAGING Troponin: 0.11 -0.18 - 0.19 2D echocardiogram and venous mapping ordered and pending EKG: Sinus rhythm with Q waves of the inferior leads and poor R wave progression (NSTEMI) (2) Bibasilar crackles ICD Codes: R09.89 - Other specified symptoms and signs involving the circulatory and respiratory systems Status: Acute Plan: Chest x-ray shows new increased density at the medial RUL likely related to right upper atelectasis or consolidation which cervantes an abrupt change from the prior exam -Continue incentive spirometry -Duonebs (3) Diabetes mellitus ICD Codes: E11.9 - Type 2 diabetes mellitus without complications Status: Chronic Plan: -A1c: 5.8% -Hold metformin and glipizide -Sliding scale insulin per protocol (4) COPD (chronic obstructive pulmonary disease) ICD Codes: J44.9 - Chronic obstructive pulmonary disease, unspecified Status: Chronic Plan: Medications: -Albuterol inhaler twice daily -Spiriva daily -DuoNeb as needed for shortness of breath (5) Hypertension ICD Codes: I10 - Essential (primary) hypertension Status: Chronic Plan: Medications: -Continue amlodipine 5 mg daily -Continue carvedilol 3.125 mg p.o. twice daily -Home lisinopril held -Clonidine as needed for blood pressure greater than 160/90 (6) Osteoarthritis ICD Codes: M19.90 - Unspecified osteoarthritis, unspecified site Status: Chronic Plan: Medications: -Continue baclofen 10 mg daily -Hold Mobic -Hold tramadol -Morphine as needed as above (7) Hypothyroidism ICD Codes: E03.9 - Hypothyroidism, unspecified Status: Chronic Plan: -TSH: 0.014, Free T3 3.25 Medications: -Levothyroxine 200 mcg daily (8) Hyperlipidemia ICD Codes: E78.5 - Hyperlipidemia, unspecified Status: Chronic Plan: -Lipid profile: Total Cholesterol 139, LDL 49, HDL 72.7 Medications: -Defer statin at this time as LFTs are elevated (continue to monitor) (9) No contraindication to deep vein thrombosis (DVT) prophylaxis ICD Codes: Z78.9 - Other specified health status Status: Acute Plan: -SCDs -Resume heparin 24 hours after surgery (10) Nutrition, metabolism, and development symptoms ICD Codes: R63.8 - Other symptoms and signs concerning food and fluid intake Status: Acute Plan: -Diet: Heart healthy diet -Fluids: Oral fluids -Electrolytes: Within normal limits, continue to monitor -Prophylaxis: Clonidine as needed for BP greater than 160/90, morphine as needed for pain, Zofran as needed for nausea/vomiting, constipation protocol, famotidine as needed for reflux Tessalon Perles for cough (Soco Torres MD R2) Problem Qualifiers (1) Coronary artery disease with unstable angina pectoris: Qualified Codes: I25.110 - Atherosclerotic heart disease of [place] coronary artery with unstable angina pectoris (2) Diabetes mellitus: Qualified Codes: E11.69 - Type 2 diabetes mellitus with other specified complication (3) COPD (chronic obstructive pulmonary disease): Qualified Codes: J43.9 - Emphysema, unspecified (4) Hypertension: Qualified Codes: I10 - Essential (primary) hypertension (5) Osteoarthritis: Qualified Codes: M15.0 - Primary generalized (osteo)arthritis (6) Hypothyroidism: Qualified Codes: E89.0 - Postprocedural hypothyroidism (7) Hyperlipidemia: Qualified Codes: E78.2 - Mixed hyperlipidemia Soco Torres MD R2 Aug 06, 2017 08:24 Trevor Moore MD Aug 06, 2017 12:18
[2017-08-06] MEDS: SODIUM CHLORIDE 0.9% FLUSH 10 ML FLUSH IV FLUSH SCH ×2 (08:25→20:34)
[2017-08-06] MEDS ORDERED: BENZONATATE 100 MG CAP PO PRN (08:30)
[2017-08-06] MEDS: ACETAMINOPHEN/HYDROcodone 325 MG/5 MG TAB PO PRN ×4 (09:16→22:22)
--- NOTE | 2017-08-06 10:57 | PD.CAR.PN ---
CVT Progress Note CVT: POD #: 1 Subjective/Hospital Course: 71-year-old patient with history of hypertension, osteoarthritis who was recently seen in the emergency department on 08/01 for left shoulder pain. They did an x-ray which showed moderate to severe osteoarthritis. She was sent home on Mobic. She said the pain is a constant ache exacerbated with movement. She went to see her primary care physician, Dr. Emerson, who sent her here for cardiac workup. Her EKG did show some poor R-wave progression. Her troponin was 0.11. She was ruled in for a non-STEMI and she went to the shop laborer, per , which showed ejection fraction of 45%, left main disease of 60%, proximal LAD 95%, mid distal LAD 95%, OM 75%, the RCA 75%. We were consulted to evaluate for coronary artery bypass grafting. PAST MEDICAL HISTORY: Includes hypertension, osteoarthritis, diabetes mellitus, hypothyroidism, hyperlipidemia and COPD. Urine drug screen + cocaine which admits to snorting once a month and regular marijuana use 08/04 carotid US R&L < 50% stenosis leg vein mapping ( left Jackson's cyst ) mild elevated LFT's trending down ( Hep panel negative ) scheduled for surgery in am sts data discussed with pt RISK SCORES About the STS Risk Calculator Procedure: CAB Only Risk of Mortality: 1.304% Morbidity or Mortality: 16.506% Long Length of Stay: 7.429% Short Length of Stay: 32.67% Permanent Stroke: 1.402% Prolonged Ventilation: 12.735% DSW Infection: 0.571% Renal Failure: 3.296% Reoperation: 5.15% 08/06/17 No complaints. Doing well CXR shows RUL atelectasis Objective: Vital Signs Date Time Temp Pulse Resp B/P (MAP) Pulse Ox O2 Delivery O2 Flow Rate FiO2 08/06/17 10:37 97 Simple Mask 10.00 08/06/17 08:00 97.9 105 16 130/75 (93) 98 133/72 (92) 08/06/17 08:00 105 08/06/17 03:00 98.6 83 20 138/81 (100) 99 148/73 (98) 08/06/17 03:00 83 08/06/17 02:00 18 08/06/17 00:30 20 08/05/17 23:00 98.3 89 22 134/67 (89) 99 136/78 (97) 08/05/17 23:00 72 08/05/17 21:23 98 Simple Mask 8.00 08/05/17 19:00 72 08/05/17 19:00 97.8 72 18 118/70 (86) 99 106/69 (81) 08/05/17 16:00 80 08/05/17 16:00 98.3 62 16 113/71 (85) 98 110/65 (80) 08/05/17 15:09 62 110/72 08/05/17 14:52 62 110/52 08/05/17 13:52 93 Nasal Cannula 5 08/05/17 12:25 Nasal Cannula 40 08/05/17 12:25 96 40 08/05/17 12:15 98.9 62 15 117/74 (88) 98 110/52 (71) 08/05/17 12:11 98 50 08/05/17 12:05 50 Labs: Laboratory Tests Test 08/06/17 04:20 White Blood Count 10.6 TH/MM3 (4.0-11.0) Red Blood Count 4.16 MIL/MM3 (4.00-5.30) Hemoglobin 13.3 GM/DL (11.6-15.3) Hematocrit 39.3 % (35.0-46.0) Mean Corpuscular Volume 94.4 FL (80.0-100.0) Mean Corpuscular Hemoglobin 31.9 PG (27.0-34.0) Mean Corpuscular Hemoglobin Concent 33.8 % (32.0-36.0) Red Cell Distribution Width 14.0 % (11.6-17.2) Platelet Count 160 TH/MM3 (150-450) Mean Platelet Volume 10.5 FL (7.0-11.0) Blood Urea Nitrogen 14 MG/DL (7-18) Creatinine 0.93 MG/DL (0.50-1.00) Random Glucose 86 MG/DL (74-106) Calcium Level 8.5 MG/DL (8.5-10.1) Magnesium Level 2.1 MG/DL (1.5-2.5) Sodium Level 137 MEQ/L (136-145) Potassium Level 4.2 MEQ/L (3.5-5.1) Chloride Level 102 MEQ/L (98-107) Carbon Dioxide Level 24.8 MEQ/L (21.0-32.0) Anion Gap 10 MEQ/L (5-15) Estimat Glomerular Filtration Rate 72 ML/MIN (>89) B-Type Natriuretic Peptide 109 PG/ML (0-100) Result Diagram: 08/06/17 0420 08/06/17 0420 Imaging: Last 24 hours Impressions Chest X-Ray 08/06/17 0500 Signed Impressions: CONCLUSION: New increased density at the medial right upper lung likely related to right up per lobe atelectasis or consolidation. The abrupt change from the prior exam harris ggest atelectasis is more likely. Mild left lower lobe atelectasis or consolidation. Cardiovascular: RRR Telemetry: NSR Pulmonary: Decreased bilaterally, especially on right GI/: NABS Incision: dry and intact CT: ~180ml over past ~14 hrs Plan: Transfer to stepdown Up to chair/ambulate Add mucomyst nebs CXR in AM Advance diet (1) NSTEMI (non-ST elevated myocardial infarction) Plan: ASA BB heparin gtt for surgery in am (2) COPD (chronic obstructive pulmonary disease) Plan: Spiriva nebs (3) Diabetes mellitus Plan: insulin SS HGB A1C 5.8 (4) Coronary artery disease with unstable angina pectoris (5) Tobacco abuse Plan: cessation (6) LFT elevation Plan: hep panel neg indices trending down (7) Illicit drug use Plan: cessation Problem Qualifiers (1) COPD (chronic obstructive pulmonary disease): Qualified Codes: J43.9 - Emphysema, unspecified (2) Diabetes mellitus: Qualified Codes: E11.69 - Type 2 diabetes mellitus with other specified complication (3) Coronary artery disease with unstable angina pectoris: Qualified Codes: I25.110 - Atherosclerotic heart disease of [place] coronary artery with unstable angina pectoris Citlaly Prince MD Aug 06, 2017 10:57
[2017-08-06] MEDS ORDERED: DEXTROSE 50% IN WATER 50 ML VIAL(D50) IV PUSH PRN (11:00)
[2017-08-06] MEDS ORDERED: GLUCAGON 1 MG/ML VIAL OTHER PRN (11:00)
[2017-08-06] MEDS ORDERED: BISACODYL 10 MG SUPP RECTAL PRN (11:00)
[2017-08-06] MEDS ORDERED: RESP: ACETYLCYSTEINE 10% 10 ML NEB NEB SCH (12:00)
--- NOTE | 2017-08-06 12:02 | PD.CARD.PN ---
Subjective Subjective Remarks alert in nad Objective Medications Current Medications Medications (Trade) Dose Ordered Sig/Wagner Route Start Time Stop Time Status Last Admin (Proair Hfa Inh) 1 puff BID PRN INH 08/03/17 14:00 (Norvasc) 5 mg DAILY PO 08/04/17 09:00 08/04/17 08:18 (Lioresal) 10 mg HS PO 08/03/17 21:00 08/05/17 21:00 (Synthroid) 200 mcg DAILY@0600 PO 08/04/17 06:00 08/06/17 05:11 (Pred Forte 1% Opth Susp) 1 drop DAILY EACH EYE 08/04/17 09:00 08/04/17 08:21 (Prinivil) 40 mg DAILY PO 08/04/17 09:00 Future Hold (Spiriva Inh) 18 mcg DAILY INH 08/04/17 09:00 08/04/17 08:20 (Ventolin Hfa Inh) 2 puff QID INH 08/03/17 18:00 Future Hold (Coreg) 3.125 mg Q12HR PO 08/03/17 21:00 08/05/17 21:00 Insulin Human Regular 100 units/ Sodium Chloride 100 ml @ 3 mls/hr TITRATE PRN IV 08/03/17 16:30 08/10/17 16:29 08/05/17 15:07 (Glucagon Inj) 1 mg UNSCH PRN OTHER 08/03/17 17:15 (NovoLOG SUPPLEMENTAL SCALE) 1 ACHS SLIDING SCALE SQ 08/03/17 21:00 08/04/17 11:33 (Catapres) 0.1 mg Q8HR PRN PO 08/03/17 17:15 (Narcan Inj) 0.4 mg UNSCH PRN IV PUSH 08/04/17 00:30 (Zofran Odt) 4 mg Q8H PRN PO 08/04/17 01:15 08/05/17 17:00 (Concepción-Colace) 1 tab BID PO 08/04/17 09:00 08/06/17 08:23 (Milk Of Magnesia Liq) 30 ml Q12H PRN PO 08/04/17 00:30 (Senokot) 17.2 mg Q12H PRN PO 08/04/17 00:30 (Dulcolax Supp) 10 mg DAILY PRN RECTAL 08/04/17 00:30 (Lactulose Liq) 30 ml DAILY PRN PO 08/04/17 00:30 (Pepcid) 10 mg BID PRN PO 08/04/17 00:30 (Duoneb Neb) 1 ampule Q6HR NEB PRN NEB 08/04/17 00:30 (Tylenol) 650 mg Q4H PRN PO 08/04/17 02:00 08/04/17 15:51 (Betadine 5% Antisepsis Kit) 1 applic DRY CHAIN OPERATOR PRN EACH NARE 08/04/17 21:15 08/07/17 21:14 (NovoLIN R INJ) See Protocol Table ... DRY CHAIN OPERATOR PRN SQ 08/04/17 21:15 08/07/17 21:14 (NS Flush) 2 ml BID IV FLUSH 08/05/17 12:00 08/06/17 08:25 (NS Flush) 2 ml UNSCH PRN IV FLUSH 08/05/17 12:00 Albumin Human 250 ml @ 250 mls/hr UNSCH PRN IV 08/05/17 12:00 (Aspirin Chew) 81 mg DAILY PO 08/06/17 09:00 08/06/17 08:24 (Plavix) 75 mg DAILY PO 08/06/17 09:00 (Protonix) 40 mg DAILY@06 PO 08/06/17 06:00 08/06/17 05:12 (Cordarone) 200 mg Q12HR PO 08/05/17 21:00 08/06/17 08:23 (Tylenol) 650 mg Q4H PRN PO 08/05/17 12:00 (Tylenol Supp) 650 mg Q4H PRN RECTAL 08/05/17 12:00 (Morphine Inj) 1 mg Q10M PRN IV PUSH 08/05/17 12:00 ([place] 5-325 Mg) 1 tab Q3H PRN PO 08/05/17 12:00 08/06/17 09:16 (Toradol Inj) 15 mg Q6H PRN IV PUSH 08/05/17 12:00 08/07/17 11:59 (fentaNYL INJ) 25 mcg Q1H PRN IV PUSH 08/05/17 12:00 08/06/17 03:00 (Zofran Odt) 4 mg Q6H PRN PO 08/05/17 12:00 (Apresoline Inj) 10 mg Q4H PRN IV PUSH 08/05/17 12:00 (Lopressor Inj) 2.5 mg Q1H PRN IV PUSH 08/05/17 12:00 08/05/17 15:09 Potassium Chloride 100 ml @ 50 mls/hr UNSCH PRN IV 08/05/17 12:00 Potassium Chloride 100 ml @ 50 mls/hr UNSCH PRN IV 08/05/17 12:00 Potassium Chloride 100 ml @ 50 mls/hr UNSCH PRN IV 08/05/17 12:00 (KCl) 20 meq UNSCH PRN PO 08/05/17 12:00 (KCl) 40 meq UNSCH PRN PO 08/05/17 12:00 Magnesium Sulfate 2 gm/Sodium Chloride 104 ml @ 100 mls/hr UNSCH PRN IV 08/05/17 12:00 Magnesium Sulfate 2 gm/Sodium Chloride 104 ml @ 50 mls/hr UNSCH PRN IV 08/05/17 12:00 Calcium Chloride 1 gm/Sodium Chloride 110 ml @ 100 mls/hr UNSCH PRN IV 08/05/17 12:00 (Calcium Chloride Inj) 0.5 gm UNSCH PRN IV PUSH 08/05/17 12:00 Insulin Human Regular 100 units/ Sodium Chloride 100 ml @ 3 mls/hr TITRATE PRN IV 08/05/17 12:00 (D50w (Vial) Inj) 50 ml UNSCH PRN IV PUSH 08/05/17 12:00 Cefazolin Sodium/ Dextrose 50 ml @ 100 mls/hr Q8H IV 08/05/17 16:00 08/07/17 00:29 08/06/17 08:24 (Sodium Bicarbonate 8.4% Inj) 50 meq UNSCH PRN IV PUSH 08/05/17 12:00 (Sodium Bicarbonate 8.4% Inj) 100 meq UNSCH PRN IV PUSH 08/05/17 12:00 (Duoneb Neb) 1 ampule Q6HR NEB NEB 08/05/17 16:00 08/06/17 10:37 (Duoneb Neb) 1 ampule Q2HR NEB PRN NEB 08/05/17 12:00 (Racepinephrine 2.25% Neb) 0.5 ml UNSCH X1 PRN NEB 08/05/17 12:00 08/08/17 11:59 (Tessalon) 200 mg TID PRN PO 08/06/17 08:30 (Colace) 100 mg BID PO 08/06/17 21:00 (Theragran M Tab) 1 tab DAILY PO 08/07/17 09:00 (Lipitor) 40 mg DAILY PO 08/07/17 09:00 (Milk Of Magnesia Liq) 30 ml DAILY PO 08/07/17 09:00 (Dulcolax Supp) 10 mg UNSCH PRN RECTAL 08/06/17 11:00 (Miralax) 17 gm DAILY PO 08/07/17 09:00 (Senokot) 8.6 mg HS PO 08/06/17 21:00 (NovoLOG SUPPLEMENTAL SCALE) 1 02,06,10,14,18,22 SQ 08/06/17 14:00 (D50w (Vial) Inj) 50 ml UNSCH PRN IV PUSH 08/06/17 11:00 (Glucagon Inj) 1 mg UNSCH PRN OTHER 08/06/17 11:00 (Mucomyst 10% Neb) 2 ml Q4HR NEB NEB 08/06/17 12:00 Vital Signs / I&O Vital Signs Date Time Temp Pulse Resp B/P (MAP) Pulse Ox O2 Delivery O2 Flow Rate FiO2 08/06/17 10:37 97 Simple Mask 10.00 08/06/17 08:00 97.9 105 16 130/75 (93) 98 133/72 (92) 08/06/17 08:00 105 08/06/17 03:00 98.6 83 20 138/81 (100) 99 148/73 (98) 08/06/17 03:00 83 08/06/17 02:00 18 08/06/17 00:30 20 08/05/17 23:00 98.3 89 22 134/67 (89) 99 136/78 (97) 08/05/17 23:00 72 08/05/17 21:23 98 Simple Mask 8.00 08/05/17 19:00 72 08/05/17 19:00 97.8 72 18 118/70 (86) 99 106/69 (81) 08/05/17 16:00 80 08/05/17 16:00 98.3 62 16 113/71 (85) 98 110/65 (80) 08/05/17 15:09 62 110/72 08/05/17 14:52 62 110/52 08/05/17 13:52 93 Nasal Cannula 5 08/05/17 12:25 Nasal Cannula 40 08/05/17 12:25 96 40 08/05/17 12:15 98.9 62 15 117/74 (88) 98 110/52 (71) 08/05/17 12:11 98 50 08/05/17 12:05 50 I/O 08/05/17 08/05/17 08/05/17 08/06/17 08/06/17 08/06/17 07:00 15:00 23:00 07:00 15:00 23:00 Intake Total 816 ml 3950 ml 40 ml 370 ml Output Total 1000 ml 855 ml 450 ml Balance 816 ml 2950 ml -815 ml -80 ml Intake Oral 480 ml 40 ml 100 ml IV Total 336 ml 270 ml Autotransfusion 250 ml Other 3700 ml Output Urine Total 500 ml 600 ml 350 ml Gastric Drainage Total 100 ml Drainage Total 155 ml 100 ml Estimated Blood Loss 500 ml # Voids 4 # Bowel Movements 0 0 0 Physical Exam GENERAL: SKIN: Warm and dry. HEAD: Normocephalic. EYES: No scleral icterus. No injection or drainage. NECK: Supple, trachea midline. No JVD or lymphadenopathy. CARDIOVASCULAR: Regular rate and rhythm without murmurs, gallops, or rubs. RESPIRATORY: Breath sounds equal bilaterally. No accessory muscle use. GASTROINTESTINAL: Abdomen soft, non-tender, nondistended. MUSCULOSKELETAL: No cyanosis, or edema. BACK: Nontender without obvious deformity. No CVA tenderness. Laboratory Laboratory Tests Test 08/06/17 04:20 White Blood Count 10.6 TH/MM3 Red Blood Count 4.16 MIL/MM3 Hemoglobin 13.3 GM/DL Hematocrit 39.3 % Mean Corpuscular Volume 94.4 FL Mean Corpuscular Hemoglobin 31.9 PG Mean Corpuscular Hemoglobin Concent 33.8 % Red Cell Distribution Width 14.0 % Platelet Count 160 TH/MM3 Mean Platelet Volume 10.5 FL Blood Urea Nitrogen 14 MG/DL Creatinine 0.93 MG/DL Random Glucose 86 MG/DL Calcium Level 8.5 MG/DL Magnesium Level 2.1 MG/DL Sodium Level 137 MEQ/L Potassium Level 4.2 MEQ/L Chloride Level 102 MEQ/L Carbon Dioxide Level 24.8 MEQ/L Anion Gap 10 MEQ/L Estimat Glomerular Filtration Rate 72 ML/MIN B-Type Natriuretic Peptide 109 PG/ML Imaging Last 24 hours Impressions Chest X-Ray 08/06/17 0500 Signed Impressions: CONCLUSION: New increased density at the medial right upper lung likely related to right up per lobe atelectasis or consolidation. The abrupt change from the prior exam harris ggest atelectasis is more likely. Mild left lower lobe atelectasis or consolidation. Assessment and Plan Problem List: (1) NSTEMI (non-ST elevated myocardial infarction) ICD Codes: I21.4 - Non-ST elevation (NSTEMI) myocardial infarction Status: Acute (2) COPD (chronic obstructive pulmonary disease) ICD Codes: J44.9 - Chronic obstructive pulmonary disease, unspecified Status: Chronic (3) Diabetes mellitus ICD Codes: E11.9 - Type 2 diabetes mellitus without complications Status: Chronic (4) Coronary artery disease with unstable angina pectoris ICD Codes: I25.110 - Atherosclerotic heart disease of [place] coronary artery with unstable angina pectoris Status: Acute (5) Tobacco abuse ICD Codes: Z72.0 - Tobacco use Status: Acute (6) LFT elevation ICD Codes: R79.89 - Other specified abnormal findings of blood chemistry Status: Acute (7) Illicit drug use ICD Codes: F19.90 - Other psychoactive substance use, unspecified, uncomplicated Status: Acute Assessment and Plan 1.) NSTEMI - pod # 1, off pump 2 vessel cabg, extubated, off pressors, on aspirin, plavix, lipitor 40 mg hs, strongly advised to dc smoking/tobacco and drugs Problem Qualifiers (1) COPD (chronic obstructive pulmonary disease): Qualified Codes: J43.9 - Emphysema, unspecified (2) Diabetes mellitus: Qualified Codes: E11.69 - Type 2 diabetes mellitus with other specified complication (3) Coronary artery disease with unstable angina pectoris: Qualified Codes: I25.110 - Atherosclerotic heart disease of [place] coronary artery with unstable angina pectoris Aleksey Rich MD Aug 06, 2017 12:02
[2017-08-06] MEDS: CARVEDILOL 3.125 MG TAB PO SCH ×2 (12:04→20:34)
[2017-08-06] MEDS: CLOPIDOGREL 75 MG TAB PO SCH (12:04)
[2017-08-06] MEDS: amLODIPine BESYLATE 5 MG TAB PO SCH (12:05)
[2017-08-06] MEDS: prednisoLONE ACETATE 1% OPHT SUSP 5 ML BTL EACH EYE SCH (13:37)
[2017-08-06] MEDS: TIOTROPIUM BROMIDE 18 MCG INH INH SCH (13:37)
--- NOTE | 2017-08-06 15:21 | EKG ---
Date Performed: 08/06/2017 Time Performed: 05:07:42 PTAGE: 71 years EKG: Sinus rhythm Inferior infarct - age undetermined Diffuse ST elevation across precordium in V2 and aVF, most shaista tible with pericarditis Generalized low voltage Since previous tracing, the diffuse ST elevation is n ew. This patient may be a post-op bypass patient. Clinical correlation is recommended. Abnormal ECG PREVIOUS TRACING : 08/04/2017 05.50 DOCTOR: Gary Harvey Interpretating Date/Time 08/06/2017 15:20:39
[2017-08-06] MEDS: RESP: ACETYLCYSTEINE 10% 30 ML NEB NEB SCH ×2 (17:10→21:30)
[2017-08-06] MEDS: DOCUSATE SODIUM 100 MG CAP PO SCH (20:34)
[2017-08-06] MEDS: SENNOSIDES 8.6 MG TAB PO SCH (20:34)
[2017-08-06] MEDS: BACLOFEN 10 MG TAB PO SCH (20:34)
[2017-08-07] VITALS (18 sets, daily range): BP systolic 130–140; BP diastolic 75–84; PULSE 77–118; RESP 16–20; TEMP 98–98.8; O2SAT 91–99
[2017-08-07] MEDS: ceFAZolin 2 GM PREMIX 50 ML IV SCH
[2017-08-07] MEDS: INSULIN ASPART SUPPLEMENTAL SCALE SQ SCH ×6 (02:00→21:49)
[2017-08-07] MEDS: RESP: ALBUTEROL 2.5 MG/IPRATROPIUM 0.5 MG NEB (SCH) NEB ×4 (02:48→21:38)
[2017-08-07] MEDS: RESP: ACETYLCYSTEINE 10% 30 ML NEB NEB SCH ×6 (02:50→23:44)
[2017-08-07] MEDS: ACETAMINOPHEN/HYDROcodone 325 MG/5 MG TAB PO PRN ×5 (03:23→21:38)
[2017-08-07 03:54] LABS: AUTOMATED NEUTROPHIL # 7.2 TH/MM3 (1.8-7.7); BASOPHIL % 0.2 % (0.0-2.0); HEMATOCRIT 36.4 % (35.0-46.0); HEMOGLOBIN 12.1 GM/DL (11.6-15.3); LYMPH % 13.1 % (9.0-44.0); LYMPHOCYTE # 1.2 TH/MM3 (1.0-4.8); MEAN CELL VOLUME 93.9 FL (80.0-100.0); MEAN CORPUSCULAR HEMOGLOBIN 31.3 PG (27.0-34.0); MEAN CORPUSCULAR HGB CONC 33.4 % (32.0-36.0); MEAN PLATELET VOLUME 9.8 FL (7.0-11.0); MONO % 10.6 % (0.0-8.0); NEUT % 76.1 % (16.0-70.0); PLATELET COUNT 151 TH/MM3 (150-450); RED BLOOD COUNT 3.87 MIL/MM3 (4.00-5.30); RED CELL DISTRIBUTION WIDTH 13.7 % (11.6-17.2); WHITE BLOOD COUNT 9.5 TH/MM3 (4.0-11.0)
[2017-08-07 04:16] LABS: BICARBONATE 26.7 MEQ/L (21.0-32.0); CALCIUM 8.4 MG/DL (8.5-10.1); CREATININE 0.75 MG/DL (0.50-1.00); MAGNESIUM 2.1 MG/DL (1.5-2.5)
[2017-08-07] MEDS: LEVOTHYROXINE SODIUM 200 MCG TAB PO SCH (06:00)
[2017-08-07] MEDS: PANTOPRAZOLE SOD 40 MG DELAYED RELEASE TAB PO SCH (06:00)
--- NOTE | 2017-08-07 06:22 | RADRPT ---
EXAM DATE: 08/07/2017 6:05 AM EDT AGE/SEX: 71 years / Female INDICATIONS: Shortness of breath, possible pulmonary disease. CLINICAL DATA: This is the patient's subsequent encounter. Patient reports that signs and symptoms h ave been present for 3 days and indicates a pain score of 5/10. MEDICAL/SURGICAL HISTORY: Asthma. Cardiovascular disease. CABG. COMPARISON: [facility] – [place], CHEST SINGLE AP, 08/06/2017. . FINDINGS: The patient is status post sternotomy. There is a mediastinal drain and left chest tube present. No p neumothorax is seen. There is a right internal jugular central line in place. There is increased dens ity at the left base with silhouetting of the left hemidiaphragm. The right lung is clear. The previo usly seen right upper lobe atelectasis has resolved. CONCLUSION: Left lower lung consolidation or atelectasis. Electronically signed by: Saul Love MD 08/07/2017 6:21 AM EDT
[2017-08-07] MEDS: prednisoLONE ACETATE 1% OPHT SUSP 5 ML BTL EACH EYE SCH (08:21)
[2017-08-07] MEDS: POLYETHYLENE GLYCOL 17 GM PKG PO SCH (08:21)
[2017-08-07] MEDS: MAGNESIUM HYDROXIDE SUSP 30 ML CUP PO SCH (08:21)
[2017-08-07] MEDS: CARVEDILOL 3.125 MG TAB PO SCH ×2 (08:22→21:39)
[2017-08-07] MEDS: ASPIRIN 81 MG CHEW TAB PO SCH (08:22)
[2017-08-07] MEDS: amLODIPine BESYLATE 5 MG TAB PO SCH (08:23)
[2017-08-07] MEDS: DOCUSATE SODIUM 100 MG CAP PO SCH ×2 (08:23→21:00)
[2017-08-07] MEDS: CLOPIDOGREL 75 MG TAB PO SCH (08:23)
[2017-08-07] MEDS: ATORVASTATIN 40 MG TAB PO SCH (08:23)
[2017-08-07] MEDS: AMIODARONE 200 MG TAB PO SCH ×2 (08:24→21:39)
[2017-08-07] MEDS: MULTIVITAMINS/MINERALS THERAPEUTIC TAB PO SCH (08:24)
[2017-08-07] MEDS: SODIUM CHLORIDE 0.9% FLUSH 10 ML FLUSH IV FLUSH SCH ×2 (09:00→21:40)
[2017-08-07] MEDS: TIOTROPIUM BROMIDE 18 MCG INH INH SCH (09:00)
--- NOTE | 2017-08-07 10:33 | HHI.FPPN ---
Subjective Remarks No acute events overnight. Patient sitting up in chair this morning. Daughter at bedside. States that she had a pain pill an hour ago. She currently does not have any CP. Currently on 2L NC. Doing well. Denies fevers, chills, and N/V. Tolerating diet well, states that she doesn't like hospital food. Objective Vitals Vital Signs Date Time Temp Pulse Resp B/P (MAP) Pulse Ox O2 Delivery O2 Flow Rate FiO2 08/07/17 08:52 94 Nasal Cannula 2.00 08/07/17 07:00 98.4 101 20 140/82 (101) 95 08/07/17 07:00 95 Nasal Cannula 2.00 08/07/17 04:00 98 Nasal Cannula 3.00 08/07/17 04:00 98.4 85 18 137/84 (101) 98 08/07/17 04:00 85 08/07/17 00:00 98.8 81 20 131/76 (94) 98 08/07/17 00:00 80 08/07/17 00:00 98 Nasal Cannula 3.00 08/06/17 23:00 97 Nasal Cannula 3.00 08/06/17 21:14 96 Nasal Cannula 2.00 08/06/17 20:00 99.2 101 20 146/75 (98) 95 Arterial Line 08/06/17 20:00 101 08/06/17 20:00 95 Nasal Cannula 2.00 08/06/17 17:56 16 08/06/17 16:00 107 08/06/17 16:00 99.0 107 16 136/90 (105) 96 08/06/17 11:00 98.4 111 16 128/8 (48) 98 08/06/17 11:00 11 08/06/17 10:37 97 Simple Mask 10.00 I/O 08/06/17 08/06/17 08/06/17 08/07/17 08/07/17 08/07/17 07:00 15:00 23:00 07:00 15:00 23:00 Intake Total 370 ml 50 ml 750 ml 580 ml Output Total 450 ml 665 ml 440 ml Balance -80 ml 50 ml 85 ml 140 ml Intake Oral 100 ml 700 ml 480 ml IV Total 270 ml 50 ml 50 ml 100 ml Output Urine Total 350 ml 575 ml 400 ml Chest Tube Drainage Total 90 ml 40 ml Drainage Total 100 ml # Bowel Movements 0 0 0 Result Diagram: 08/07/17 0305 08/07/17 0305 Objective Remarks GENERAL: Well-nourished, well-developed patient, sitting up in a chair, eating breakfast. No acute distress. 6L by NC SKIN: Warm and dry. No rash. EYES: No scleral icterus. No injection or drainage. PERRLA. EOMI. CHEST: Surgical incision site covered with specialized foam dressing, wound vac in place CARDIOVASCULAR: RRR. Warm and well perfused. RESPIRATORY: CTAB, no wheezes or crackles GASTROINTESTINAL: NTND. Positive bowel sounds MUSCULOSKELETAL: Strength grossly WNL. NEURO/PSYCH: Afocal. Awake, alert, and oriented x3. A/P Assessment and Plan Ms. Welch is a 71-year-old female that presented with chest pain found to have severe two-vessel disease admitted for coronary artery bypass grafting. Discharge Planning Surgery on 08/05/2017 Await Cardiology clearance Anticipate discharge in 2-3 days Problem List: (1) Coronary artery disease with unstable angina pectoris ICD Codes: I25.110 - Atherosclerotic heart disease of [place] coronary artery with unstable angina pectoris Status: Acute Plan: -POD2 CABG on 08/05/2017 * Urgent Off-pump Coronary Artery Bypass Grafting x 2 with Left Internal Mammary Artery (EARL) to Left Anterior Descending (LAD), reverse saphenous vein graft to the Obtuse Marginal 1 (OM1) branch of the Left Circumflex Coronary Artery Status post cardiac catheterization on 08/03/17: -Severe left main and three-vessel coronary disease and a right dominant system. Mildly reduced LV systolic function of 45% with severe hypokinesis to akinesis of the apex. Medications: -Carvedilol 3.125 mg twice daily -Plavix 75mg PO q12h -Daily aspirin -Morphine as needed for pain -Oxygen as needed LABS/IMAGING Troponin: 0.11 -0.18 - 0.19 2D echocardiogram and venous mapping ordered and pending EKG: Sinus rhythm with Q waves of the inferior leads and poor R wave progression (NSTEMI) (2) Bibasilar crackles ICD Codes: R09.89 - Other specified symptoms and signs involving the circulatory and respiratory systems Status: Acute Plan: Chest x-ray shows new increased density at the medial RUL likely related to right upper atelectasis or consolidation which cervantes an abrupt change from the prior exam -Continue incentive spirometry -Duonebs (3) Diabetes mellitus ICD Codes: E11.9 - Type 2 diabetes mellitus without complications Status: Chronic Plan: -A1c: 5.8% -Hold metformin and glipizide -Sliding scale insulin per protocol (4) COPD (chronic obstructive pulmonary disease) ICD Codes: J44.9 - Chronic obstructive pulmonary disease, unspecified Status: Chronic Plan: Medications: -Albuterol inhaler twice daily -Spiriva daily -DuoNeb as needed for shortness of breath (5) Hypertension ICD Codes: I10 - Essential (primary) hypertension Status: Chronic Plan: Medications: -Continue amlodipine 5 mg daily -Continue carvedilol 3.125 mg p.o. twice daily -Home lisinopril held -Clonidine as needed for blood pressure greater than 160/90 (6) Osteoarthritis ICD Codes: M19.90 - Unspecified osteoarthritis, unspecified site Status: Chronic Plan: Medications: -Continue baclofen 10 mg daily -Hold Mobic -Hold tramadol -Morphine as needed as above (7) Hypothyroidism ICD Codes: E03.9 - Hypothyroidism, unspecified Status: Chronic Plan: -TSH: 0.014, Free T3 3.25 Medications: -Levothyroxine 200 mcg daily (8) Hyperlipidemia ICD Codes: E78.5 - Hyperlipidemia, unspecified Status: Chronic Plan: -Lipid profile: Total Cholesterol 139, LDL 49, HDL 72.7 -Start Lipitor 40mg PO daily (9) No contraindication to deep vein thrombosis (DVT) prophylaxis ICD Codes: Z78.9 - Other specified health status Status: Acute Plan: -SCDs -Currently on Plavix (10) Nutrition, metabolism, and development symptoms ICD Codes: R63.8 - Other symptoms and signs concerning food and fluid intake Status: Acute Plan: -Diet: Heart healthy diet -Fluids: Oral fluids -Electrolytes: Within normal limits, continue to monitor -Prophylaxis: Clonidine as needed for BP greater than 160/90, morphine as needed for pain, Zofran as needed for nausea/vomiting, constipation protocol, famotidine as needed for reflux Tessalon Perles for cough Problem Qualifiers (1) Coronary artery disease with unstable angina pectoris: Qualified Codes: I25.110 - Atherosclerotic heart disease of [place] coronary artery with unstable angina pectoris (2) Diabetes mellitus: Qualified Codes: E11.69 - Type 2 diabetes mellitus with other specified complication (3) COPD (chronic obstructive pulmonary disease): Qualified Codes: J43.9 - Emphysema, unspecified (4) Hypertension: Qualified Codes: I10 - Essential (primary) hypertension (5) Osteoarthritis: Qualified Codes: M15.0 - Primary generalized (osteo)arthritis (6) Hypothyroidism: Qualified Codes: E89.0 - Postprocedural hypothyroidism (7) Hyperlipidemia: Qualified Codes: E78.2 - Mixed hyperlipidemia Tiffanie Duque MD R1 Aug 07, 2017 10:33
--- NOTE | 2017-08-07 11:10 | PD.CAR.PN ---
CVT Progress Note CVT: POD #: 2 Subjective/Hospital Course: 71-year-old patient with history of hypertension, osteoarthritis who was recently seen in the emergency department on 08/01 for left shoulder pain. They did an x-ray which showed moderate to severe osteoarthritis. She was sent home on Mobic. She said the pain is a constant ache exacerbated with movement. She went to see her primary care physician, Dr. Emerson, who sent her here for cardiac workup. Her EKG did show some poor R-wave progression. Her troponin was 0.11. She was ruled in for a non-STEMI and she went to the phlebotomist lab assistant, per , which showed ejection fraction of 45%, left main disease of 60%, proximal LAD 95%, mid distal LAD 95%, OM 75%, the RCA 75%. We were consulted to evaluate for coronary artery bypass grafting. PAST MEDICAL HISTORY: Includes hypertension, osteoarthritis, diabetes mellitus, hypothyroidism, hyperlipidemia and COPD. Urine drug screen + cocaine which admits to snorting once a month and regular marijuana use 08/04 carotid US R&L < 50% stenosis leg vein mapping ( left Jackson's cyst ) mild elevated LFT's trending down ( Hep panel negative ) scheduled for surgery in am sts data discussed with pt RISK SCORES About the STS Risk Calculator Procedure: CAB Only Risk of Mortality: 1.304% Morbidity or Mortality: 16.506% Long Length of Stay: 7.429% Short Length of Stay: 32.67% Permanent Stroke: 1.402% Prolonged Ventilation: 12.735% DSW Infection: 0.571% Renal Failure: 3.296% Reoperation: 5.15% 08/06/17 No complaints. Doing well CXR shows RUL atelectasis 08/07/17 Doing well today. No complaints. CXR improved. Objective: Vital Signs Date Time Temp Pulse Resp B/P (MAP) Pulse Ox O2 Delivery O2 Flow Rate FiO2 08/07/17 08:52 94 Nasal Cannula 2.00 08/07/17 07:00 98.4 101 20 140/82 (101) 95 08/07/17 07:00 95 Nasal Cannula 2.00 08/07/17 04:00 98 Nasal Cannula 3.00 08/07/17 04:00 98.4 85 18 137/84 (101) 98 08/07/17 04:00 85 08/07/17 00:00 98.8 81 20 131/76 (94) 98 08/07/17 00:00 80 08/07/17 00:00 98 Nasal Cannula 3.00 08/06/17 23:00 97 Nasal Cannula 3.00 08/06/17 21:14 96 Nasal Cannula 2.00 08/06/17 20:00 99.2 101 20 146/75 (98) 95 Arterial Line 08/06/17 20:00 101 08/06/17 20:00 95 Nasal Cannula 2.00 08/06/17 17:56 16 08/06/17 16:00 107 08/06/17 16:00 99.0 107 16 136/90 (105) 96 Labs: Laboratory Tests Test 08/07/17 03:05 White Blood Count 9.5 TH/MM3 (4.0-11.0) Red Blood Count 3.87 MIL/MM3 (4.00-5.30) Hemoglobin 12.1 GM/DL (11.6-15.3) Hematocrit 36.4 % (35.0-46.0) Mean Corpuscular Volume 93.9 FL (80.0-100.0) Mean Corpuscular Hemoglobin 31.3 PG (27.0-34.0) Mean Corpuscular Hemoglobin Concent 33.4 % (32.0-36.0) Red Cell Distribution Width 13.7 % (11.6-17.2) Platelet Count 151 TH/MM3 (150-450) Mean Platelet Volume 9.8 FL (7.0-11.0) Neutrophils (%) (Auto) 76.1 % (16.0-70.0) Lymphocytes (%) (Auto) 13.1 % (9.0-44.0) Monocytes (%) (Auto) 10.6 % (0.0-8.0) Eosinophils (%) (Auto) 0.0 % (0.0-4.0) Basophils (%) (Auto) 0.2 % (0.0-2.0) Neutrophils # (Auto) 7.2 TH/MM3 (1.8-7.7) Lymphocytes # (Auto) 1.2 TH/MM3 (1.0-4.8) Monocytes # (Auto) 1.0 TH/MM3 (0-0.9) Eosinophils # (Auto) 0.0 TH/MM3 (0-0.4) Basophils # (Auto) 0.0 TH/MM3 (0-0.2) CBC Comment DIFF FINAL Differential Comment Blood Urea Nitrogen 13 MG/DL (7-18) Creatinine 0.75 MG/DL (0.50-1.00) Random Glucose 121 MG/DL (74-106) Calcium Level 8.4 MG/DL (8.5-10.1) Magnesium Level 2.1 MG/DL (1.5-2.5) Sodium Level 136 MEQ/L (136-145) Potassium Level 4.2 MEQ/L (3.5-5.1) Chloride Level 100 MEQ/L (98-107) Carbon Dioxide Level 26.7 MEQ/L (21.0-32.0) Anion Gap 9 MEQ/L (5-15) Estimat Glomerular Filtration Rate 93 ML/MIN (>89) Result Diagram: 08/07/17 0305 08/07/17 0305 Imaging: Last 24 hours Impressions Chest X-Ray 08/07/17 0600 Signed Impressions: CONCLUSION: Left lower lung consolidation or atelectasis. Cardiovascular: RRR Telemetry: NSR Pulmonary: CTA GI/: NABS, NT Incision: dry and intact CT: 40ml/12hrs Plan: Remove chest tubes Increase coreg Stim BM Diurese Supp K Encourage ambulation Possible D/C tomorrow (1) NSTEMI (non-ST elevated myocardial infarction) Plan: ASA BB heparin gtt for surgery in am (2) COPD (chronic obstructive pulmonary disease) Plan: Spiriva nebs (3) Diabetes mellitus Plan: insulin SS HGB A1C 5.8 (4) Coronary artery disease with unstable angina pectoris (5) Tobacco abuse Plan: cessation (6) LFT elevation Plan: hep panel neg indices trending down (7) Illicit drug use Plan: cessation Problem Qualifiers (1) COPD (chronic obstructive pulmonary disease): Qualified Codes: J43.9 - Emphysema, unspecified (2) Diabetes mellitus: Qualified Codes: E11.69 - Type 2 diabetes mellitus with other specified complication (3) Coronary artery disease with unstable angina pectoris: Qualified Codes: I25.110 - Atherosclerotic heart disease of [place] coronary artery with unstable angina pectoris Citlaly Prince MD Aug 07, 2017 11:10
--- NOTE | 2017-08-07 11:49 | PD.CARD.PN ---
Subjective Subjective Remarks alert in nad, chest tubes out Objective Medications Current Medications Medications (Trade) Dose Ordered Sig/Wagner Route Start Time Stop Time Status Last Admin (Proair Hfa Inh) 1 puff BID PRN INH 08/03/17 14:00 (Norvasc) 5 mg DAILY PO 08/04/17 09:00 08/07/17 08:23 (Lioresal) 10 mg HS PO 08/03/17 21:00 08/06/17 20:34 (Synthroid) 200 mcg DAILY@0600 PO 08/04/17 06:00 08/07/17 06:00 (Pred Forte 1% Opth Susp) 1 drop DAILY EACH EYE 08/04/17 09:00 08/07/17 08:21 (Prinivil) 40 mg DAILY PO 08/04/17 09:00 Future Hold (Spiriva Inh) 18 mcg DAILY INH 08/04/17 09:00 08/07/17 09:00 (Ventolin Hfa Inh) 2 puff QID INH 08/03/17 18:00 Future Hold (Catapres) 0.1 mg Q8HR PRN PO 08/03/17 17:15 (Narcan Inj) 0.4 mg UNSCH PRN IV PUSH 08/04/17 00:30 (Senokot) 17.2 mg Q12H PRN PO 08/04/17 00:30 (Dulcolax Supp) 10 mg DAILY PRN RECTAL 08/04/17 00:30 (Lactulose Liq) 30 ml DAILY PRN PO 08/04/17 00:30 (Pepcid) 10 mg BID PRN PO 08/04/17 00:30 (Betadine 5% Antisepsis Kit) 1 applic GASOLINE LOCOMOTIVE CRANE OPERATOR PRN EACH NARE 08/04/17 21:15 08/07/17 21:14 (NovoLIN R INJ) See Protocol Table ... GASOLINE LOCOMOTIVE CRANE OPERATOR PRN SQ 08/04/17 21:15 08/07/17 21:14 (NS Flush) 2 ml BID IV FLUSH 08/05/17 12:00 08/07/17 09:00 (NS Flush) 2 ml UNSCH PRN IV FLUSH 08/05/17 12:00 Albumin Human 250 ml @ 250 mls/hr UNSCH PRN IV 08/05/17 12:00 (Aspirin Chew) 81 mg DAILY PO 08/06/17 09:00 08/07/17 08:22 (Plavix) 75 mg DAILY PO 08/06/17 09:00 08/07/17 08:23 (Protonix) 40 mg DAILY@06 PO 08/06/17 06:00 08/07/17 06:00 (Cordarone) 200 mg Q12HR PO 08/05/17 21:00 08/07/17 08:24 (Tylenol) 650 mg Q4H PRN PO 08/05/17 12:00 (Tylenol Supp) 650 mg Q4H PRN RECTAL 08/05/17 12:00 (Morphine Inj) 1 mg Q10M PRN IV PUSH 08/05/17 12:00 ([place] 5-325 Mg) 1 tab Q3H PRN PO 08/05/17 12:00 08/07/17 09:23 (Toradol Inj) 15 mg Q6H PRN IV PUSH 08/05/17 12:00 08/07/17 11:59 08/06/17 20:35 (fentaNYL INJ) 25 mcg Q1H PRN IV PUSH 08/05/17 12:00 08/06/17 03:00 (Zofran Odt) 4 mg Q6H PRN PO 08/05/17 12:00 (Apresoline Inj) 10 mg Q4H PRN IV PUSH 08/05/17 12:00 (Lopressor Inj) 2.5 mg Q1H PRN IV PUSH 08/05/17 12:00 08/05/17 15:09 Potassium Chloride 100 ml @ 50 mls/hr UNSCH PRN IV 08/05/17 12:00 Potassium Chloride 100 ml @ 50 mls/hr UNSCH PRN IV 08/05/17 12:00 Potassium Chloride 100 ml @ 50 mls/hr UNSCH PRN IV 08/05/17 12:00 (KCl) 20 meq UNSCH PRN PO 08/05/17 12:00 (KCl) 40 meq UNSCH PRN PO 08/05/17 12:00 Magnesium Sulfate 2 gm/Sodium Chloride 104 ml @ 100 mls/hr UNSCH PRN IV 08/05/17 12:00 Magnesium Sulfate 2 gm/Sodium Chloride 104 ml @ 50 mls/hr UNSCH PRN IV 08/05/17 12:00 Calcium Chloride 1 gm/Sodium Chloride 110 ml @ 100 mls/hr UNSCH PRN IV 08/05/17 12:00 (Calcium Chloride Inj) 0.5 gm UNSCH PRN IV PUSH 08/05/17 12:00 (Sodium Bicarbonate 8.4% Inj) 50 meq UNSCH PRN IV PUSH 08/05/17 12:00 (Sodium Bicarbonate 8.4% Inj) 100 meq UNSCH PRN IV PUSH 08/05/17 12:00 (Duoneb Neb) 1 ampule Q6HR NEB NEB 08/05/17 16:00 08/07/17 08:52 (Duoneb Neb) 1 ampule Q2HR NEB PRN NEB 08/05/17 12:00 (Racepinephrine 2.25% Neb) 0.5 ml UNSCH X1 PRN NEB 08/05/17 12:00 08/08/17 11:59 (Tessalon) 200 mg TID PRN PO 08/06/17 08:30 (Colace) 100 mg BID PO 08/06/17 21:00 08/07/17 08:23 (Theragran M Tab) 1 tab DAILY PO 08/07/17 09:00 08/07/17 08:24 (Lipitor) 40 mg DAILY PO 08/07/17 09:00 08/07/17 08:23 (Milk Of Magnesia Liq) 30 ml DAILY PO 08/07/17 09:00 08/07/17 08:21 (Dulcolax Supp) 10 mg UNSCH PRN RECTAL 08/06/17 11:00 (Miralax) 17 gm DAILY PO 08/07/17 09:00 08/07/17 08:21 (Senokot) 8.6 mg HS PO 08/06/17 21:00 08/06/17 20:34 (NovoLOG SUPPLEMENTAL SCALE) 1 02,06,10,14,18,22 SQ 08/06/17 14:00 08/07/17 11:45 (D50w (Vial) Inj) 50 ml UNSCH PRN IV PUSH 08/06/17 11:00 (Glucagon Inj) 1 mg UNSCH PRN OTHER 08/06/17 11:00 (Mucomyst 10% Neb) 2 ml Q4HR NEB NEB 08/06/17 12:00 08/07/17 02:50 (Coreg) 6.25 mg Q12HR PO 08/07/17 21:00 (Lasix Inj) 40 mg BID@09,18 IV PUSH 08/07/17 18:00 (KCl) 30 meq Q12HR PO 08/07/17 21:00 Vital Signs / I&O Vital Signs Date Time Temp Pulse Resp B/P (MAP) Pulse Ox O2 Delivery O2 Flow Rate FiO2 08/07/17 11:35 18 08/07/17 08:52 94 Nasal Cannula 2.00 08/07/17 07:00 98.4 101 20 140/82 (101) 95 08/07/17 07:00 95 Nasal Cannula 2.00 08/07/17 04:00 98 Nasal Cannula 3.00 08/07/17 04:00 98.4 85 18 137/84 (101) 98 08/07/17 04:00 85 08/07/17 00:00 98.8 81 20 131/76 (94) 98 08/07/17 00:00 80 08/07/17 00:00 98 Nasal Cannula 3.00 08/06/17 23:00 97 Nasal Cannula 3.00 08/06/17 21:14 96 Nasal Cannula 2.00 08/06/17 20:00 99.2 101 20 146/75 (98) 95 Arterial Line 08/06/17 20:00 101 08/06/17 20:00 95 Nasal Cannula 2.00 08/06/17 16:00 107 08/06/17 16:00 99.0 107 16 136/90 (105) 96 I/O 08/06/17 08/06/17 08/06/17 08/07/17 08/07/17 08/07/17 07:00 15:00 23:00 07:00 15:00 23:00 Intake Total 370 ml 50 ml 750 ml 580 ml Output Total 450 ml 665 ml 440 ml Balance -80 ml 50 ml 85 ml 140 ml Intake Oral 100 ml 700 ml 480 ml IV Total 270 ml 50 ml 50 ml 100 ml Output Urine Total 350 ml 575 ml 400 ml Chest Tube Drainage Total 90 ml 40 ml Drainage Total 100 ml # Bowel Movements 0 0 0 Physical Exam GENERAL: SKIN: Warm and dry. HEAD: Normocephalic. EYES: No scleral icterus. No injection or drainage. NECK: Supple, trachea midline. No JVD or lymphadenopathy. CARDIOVASCULAR: Regular rate and rhythm without murmurs, gallops, or rubs. RESPIRATORY: Breath sounds equal bilaterally. No accessory muscle use. GASTROINTESTINAL: Abdomen soft, non-tender, nondistended. MUSCULOSKELETAL: No cyanosis, or edema. BACK: Nontender without obvious deformity. No CVA tenderness. Laboratory Laboratory Tests Test 08/07/17 03:05 White Blood Count 9.5 TH/MM3 Red Blood Count 3.87 MIL/MM3 Hemoglobin 12.1 GM/DL Hematocrit 36.4 % Mean Corpuscular Volume 93.9 FL Mean Corpuscular Hemoglobin 31.3 PG Mean Corpuscular Hemoglobin Concent 33.4 % Red Cell Distribution Width 13.7 % Platelet Count 151 TH/MM3 Mean Platelet Volume 9.8 FL Neutrophils (%) (Auto) 76.1 % Lymphocytes (%) (Auto) 13.1 % Monocytes (%) (Auto) 10.6 % Eosinophils (%) (Auto) 0.0 % Basophils (%) (Auto) 0.2 % Neutrophils # (Auto) 7.2 TH/MM3 Lymphocytes # (Auto) 1.2 TH/MM3 Monocytes # (Auto) 1.0 TH/MM3 Eosinophils # (Auto) 0.0 TH/MM3 Basophils # (Auto) 0.0 TH/MM3 CBC Comment DIFF FINAL Differential Comment Blood Urea Nitrogen 13 MG/DL Creatinine 0.75 MG/DL Random Glucose 121 MG/DL Calcium Level 8.4 MG/DL Magnesium Level 2.1 MG/DL Sodium Level 136 MEQ/L Potassium Level 4.2 MEQ/L Chloride Level 100 MEQ/L Carbon Dioxide Level 26.7 MEQ/L Anion Gap 9 MEQ/L Estimat Glomerular Filtration Rate 93 ML/MIN Imaging Last 24 hours Impressions Chest X-Ray 08/07/17 0600 Signed Impressions: CONCLUSION: Left lower lung consolidation or atelectasis. Assessment and Plan Problem List: (1) NSTEMI (non-ST elevated myocardial infarction) ICD Codes: I21.4 - Non-ST elevation (NSTEMI) myocardial infarction Status: Acute (2) COPD (chronic obstructive pulmonary disease) ICD Codes: J44.9 - Chronic obstructive pulmonary disease, unspecified Status: Chronic (3) Diabetes mellitus ICD Codes: E11.9 - Type 2 diabetes mellitus without complications Status: Chronic (4) Coronary artery disease with unstable angina pectoris ICD Codes: I25.110 - Atherosclerotic heart disease of [place] coronary artery with unstable angina pectoris Status: Acute (5) Tobacco abuse ICD Codes: Z72.0 - Tobacco use Status: Acute (6) LFT elevation ICD Codes: R79.89 - Other specified abnormal findings of blood chemistry Status: Acute (7) Illicit drug use ICD Codes: F19.90 - Other psychoactive substance use, unspecified, uncomplicated Status: Acute Assessment and Plan 1.) NSTEMI - pod # 2, off pump 2 vessel cabg, extubated, off pressors, on aspirin, plavix, lipitor 40 mg hs, coreg, recheck lfts in am, strongly advised to dc smoking/tobacco and drugs Problem Qualifiers (1) COPD (chronic obstructive pulmonary disease): Qualified Codes: J43.9 - Emphysema, unspecified (2) Diabetes mellitus: Qualified Codes: E11.69 - Type 2 diabetes mellitus with other specified complication (3) Coronary artery disease with unstable angina pectoris: Qualified Codes: I25.110 - Atherosclerotic heart disease of [place] coronary artery with unstable angina pectoris Aleksey Rich MD Aug 07, 2017 11:49
[2017-08-07] MEDS: FUROSEMIDE 40 MG/4 ML VIAL IV PUSH SCH (17:01)
--- NOTE | 2017-08-07 18:20 | ECHRPT ---
Indication: CARDIOMYOPATHY CONCLUSIONS LV apical mild hypokinesis improved after cabg c/w ventriculography. EF @ 50% There is abnormal (paradoxical) septal motion consistent with postoperative state. The estimated pulmonary arterial pressure is 36.8 mmHg. There is trace tricuspid valve regurgitation. 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 There is abnormal (paradoxical) septal motion consistent with postoperative state. The interatrial septum not well visualized. The aortic root and proximal ascending aorta are not well visualized. The estimated pulmonary arterial pressure is 36.8 mmHg. There is trace tricuspid valve regurgitation. The transthoracic study is normal by two-dimensional, color flow imaging and Doppler interrogation. The transthoracic study is normal by two-dimensional, color flow imaging and Doppler interrogation. BP: 133 / 60 HR: 77 Rhythm: Sinus MEASUREMENTS (Male / Female) Normal Values Technical Quality:Technically difficult study DOPPLER AV Peak Velocity 135.0 cm/s AV Peak Gradient 7.3 mmHg AV Mean Gradient 4.0 mmHg AV Velocity Time Integral 18.1 cm LVOT Peak Velocity 111.0 cm/s LVOT Peak Gradient 4.9 mmHg LVOT Velocity Time Integral 16.8 cm LV E' Lateral Velocity 6.3 cm/s LV E' Septal Velocity 4.8 cm/s TR Peak Velocity 259.0 cm/s TR Peak Gradient 26.8 mmHg Right Atrial Pressure 10.0 mmHg Pulmonary Artery Systolic Pressu 36.8 mmHg Right Ventricular Systolic Press 36.8 mmHg PV Peak Velocity 89.5 cm/s PV Peak Gradient 3.2 mmHg FINDINGS LEFT VENTRICLE 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 There is abnormal (paradoxical) septal motion consistent with postoperative state. RIGHT VENTRICLE Normal right ventricular size and systolic function. LEFT ATRIUM The left atrial size is normal. RIGHT ATRIUM The right atrial size is normal. ATRIAL SEPTUM The interatrial septum not well visualized. AORTA The aortic root and proximal ascending aorta are not well visualized. MITRAL VALVE Structurally normal mitral valve. No mitral valve stenosis or regurgitation. AORTIC VALVE Trileaflet aortic valve. No aortic valve stenosis or regurgitation. TRICUSPID VALVE The estimated pulmonary arterial pressure is 36.8 mmHg. There is trace tricuspid valve regurgitation. Aleksey Rich MD, FACC, FSCAI (Electronically Signed) Final Date:07 August 2017 18:19
[2017-08-07] MEDS: SENNOSIDES 8.6 MG TAB PO SCH (21:00)
[2017-08-07] MEDS: BACLOFEN 10 MG TAB PO SCH (21:38)
[2017-08-07] MEDS: POTASSIUM CHLORIDE 10 MEQ CONTROLLED RELEASE TAB PO SCH (21:39)
[2017-08-08] VITALS (29 sets, daily range): BP systolic 103–128; BP diastolic 62–79; PULSE 75–116; RESP 16–18; TEMP 97.7–98.6; O2SAT 94–98
[2017-08-08] MEDS: ACETAMINOPHEN/HYDROcodone 325 MG/5 MG TAB PO PRN ×4 (00:45→20:04)
[2017-08-08] MEDS: RESP: ALBUTEROL 2.5 MG/IPRATROPIUM 0.5 MG NEB (SCH) NEB ×3 (03:40→20:18)
[2017-08-08] MEDS: RESP: ACETYLCYSTEINE 10% 30 ML NEB NEB SCH ×4 (03:40→20:18)
[2017-08-08 04:41] LABS: HEMATOCRIT 35.3 % (35.0-46.0); HEMOGLOBIN 12.1 GM/DL (11.6-15.3); MEAN CORPUSCULAR HEMOGLOBIN 31.5 PG (27.0-34.0); MEAN CORPUSCULAR HGB CONC 34.3 % (32.0-36.0); MEAN PLATELET VOLUME 9.4 FL (7.0-11.0); PLATELET COUNT 191 TH/MM3 (150-450); RED BLOOD COUNT 3.84 MIL/MM3 (4.00-5.30); RED CELL DISTRIBUTION WIDTH 13.6 % (11.6-17.2); WHITE BLOOD COUNT 9.2 TH/MM3 (4.0-11.0)
[2017-08-08 05:08] LABS: ALBUMIN 2.6 GM/DL (3.4-5.0); BICARBONATE 28.5 MEQ/L (21.0-32.0); CREATININE 0.79 MG/DL (0.50-1.00); DIRECT BILIRUBIN ADULT 0.2 MG/DL (0.0-0.2)
[2017-08-08 05:13] LABS: INDIRECT BILIRUBIN 0.3 MG/DL (0.0-0.8); TOTAL BILIRUBIN ADULT 0.5 MG/DL (0.2-1.0); TOTAL PROTEIN 6.7 GM/DL (6.4-8.2)
[2017-08-08] MEDS: LEVOTHYROXINE SODIUM 200 MCG TAB PO SCH (06:10)
[2017-08-08] MEDS: PANTOPRAZOLE SOD 40 MG DELAYED RELEASE TAB PO SCH (06:11)
[2017-08-08] MEDS: INSULIN ASPART SUPPLEMENTAL SCALE SQ SCH ×4 (08:00→20:15)
[2017-08-08] MEDS: CLOPIDOGREL 75 MG TAB PO SCH (08:10)
[2017-08-08] MEDS: DOCUSATE SODIUM 100 MG CAP PO SCH ×2 (08:10→20:05)
[2017-08-08] MEDS: FUROSEMIDE 40 MG/4 ML VIAL IV PUSH SCH (08:10)
[2017-08-08] MEDS: amLODIPine BESYLATE 5 MG TAB PO SCH (08:10)
[2017-08-08] MEDS: ATORVASTATIN 40 MG TAB PO SCH (08:10)
[2017-08-08] MEDS: CARVEDILOL 3.125 MG TAB PO SCH ×2 (08:11→20:06)
[2017-08-08] MEDS: SODIUM CHLORIDE 0.9% FLUSH 10 ML FLUSH IV FLUSH SCH ×2 (08:11→20:07)
[2017-08-08] MEDS: AMIODARONE 200 MG TAB PO SCH ×2 (08:11→20:05)
[2017-08-08] MEDS: POTASSIUM CHLORIDE 10 MEQ CONTROLLED RELEASE TAB PO SCH (08:11)
[2017-08-08] MEDS: ASPIRIN 81 MG CHEW TAB PO SCH (08:11)
[2017-08-08] MEDS: MULTIVITAMINS/MINERALS THERAPEUTIC TAB PO SCH (08:11)
[2017-08-08] MEDS: prednisoLONE ACETATE 1% OPHT SUSP 5 ML BTL EACH EYE SCH (08:12)
[2017-08-08] MEDS: TIOTROPIUM BROMIDE 18 MCG INH INH SCH (08:12)
[2017-08-08] MEDS: MAGNESIUM HYDROXIDE SUSP 30 ML CUP PO SCH (09:00)
[2017-08-08] MEDS: POLYETHYLENE GLYCOL 17 GM PKG PO SCH (09:00)
--- NOTE | 2017-08-08 09:41 | RSPPFT ---
DATE OF PROCEDURE: 08/04/17 COMMENTS: Spirometry demonstrates an FEV1 of 1.8 at 75% of predicted, FVC of 2.4 at 79%, FEF 25-75 is 58%. Post-bronchodilator study was not conducted. Flow volume loop suggests an obstructive defect. IMPRESSION: 1. Mild obstructive airways disease.
[2017-08-08] MEDS ORDERED: CARVEDILOL 6.25 MG TAB PO ONE (10:45)
[2017-08-08] MEDS ORDERED: AMIODARONE 200 MG TAB PO ONE (10:45)
--- NOTE | 2017-08-08 10:50 | PD.CAR.PN ---
CVT Progress Note Subjective/Hospital Course: 71-year-old patient with history of hypertension, osteoarthritis who was recently seen in the emergency department on 08/01 for left shoulder pain. They did an x-ray which showed moderate to severe osteoarthritis. She was sent home on Mobic. She said the pain is a constant ache exacerbated with movement. She went to see her primary care physician, Dr. Emerson, who sent her here for cardiac workup. Her EKG did show some poor R-wave progression. Her troponin was 0.11. She was ruled in for a non-STEMI and she went to the cardiac catheterization technician, per , which showed ejection fraction of 45%, left main disease of 60%, proximal LAD 95%, mid distal LAD 95%, OM 75%, the RCA 75%. We were consulted to evaluate for coronary artery bypass grafting. PAST MEDICAL HISTORY: Includes hypertension, osteoarthritis, diabetes mellitus, hypothyroidism, hyperlipidemia and COPD. Urine drug screen + cocaine which admits to snorting once a month and regular marijuana use 08/04 carotid US R&L < 50% stenosis leg vein mapping ( left Jackson's cyst ) mild elevated LFT's trending down ( Hep panel negative ) scheduled for surgery in am 08/06/17 No complaints. Doing well CXR shows RUL atelectasis 08/07/17 Doing well today. No complaints. CXR improved. 08/08 still has coarse breath sounds, requires pulm toileting nebs, ezpap , continue mucomyst for now sinus tach> will increase amiodarone and BB check sputum / no leukocytosis Objective: GENERAL: A&O x 3 SKIN: Warm and dry. prevena dressing to chest / HEAD: Normocephalic. EYES: No scleral icterus. No injection or drainage. NECK: Supple, trachea midline. No JVD or lymphadenopathy. CARDIOVASCULAR: Regular rate and rhythm without murmurs, gallops, or rubs. RESPIRATORY: Breath sounds equal bilaterally. No accessory muscle use. GASTROINTESTINAL: Abdomen soft, non-tender, nondistended. MUSCULOSKELETAL: No cyanosis, or edema. BACK: Nontender without obvious deformity. No CVA tenderness. Vital Signs Date Time Temp Pulse Resp B/P (MAP) Pulse Ox O2 Delivery O2 Flow Rate FiO2 08/08/17 10:01 98 08/08/17 09:00 116 08/08/17 08:30 97.7 98 18 127/73 (91) 95 08/08/17 08:30 95 Room Air 08/08/17 08:00 104 08/08/17 07:01 84 08/08/17 06:00 82 08/08/17 05:00 84 08/08/17 04:38 97.9 97 16 128/79 (95) 95 08/08/17 04:35 96 Room Air 08/08/17 04:00 88 08/08/17 03:00 86 08/08/17 02:00 86 08/08/17 01:00 90 08/08/17 00:00 97.9 88 16 105/62 (76) 95 08/08/17 00:00 83 08/07/17 23:22 93 Room Air 08/07/17 23:00 94 08/07/17 21:38 93 21 08/07/17 21:00 98.3 106 16 135/75 (95) 91 08/07/17 21:00 91 Room Air 08/07/17 20:00 104 08/07/17 19:00 107 08/07/17 18:56 18 08/07/17 18:17 114 08/07/17 17:03 118 08/07/17 16:42 96 21 08/07/17 16:00 90 08/07/17 15:05 94 Room Air 08/07/17 15:05 98 08/07/17 15:05 98.0 91 18 132/77 (95) 94 08/07/17 14:06 87 08/07/17 13:41 77 08/07/17 12:27 107 08/07/17 11:10 98.2 99 18 130/80 (97) 99 08/07/17 11:10 95 Room Air 08/07/17 11:10 106 Labs: Laboratory Tests Test 08/08/17 04:30 White Blood Count 9.2 TH/MM3 (4.0-11.0) Red Blood Count 3.84 MIL/MM3 (4.00-5.30) Hemoglobin 12.1 GM/DL (11.6-15.3) Hematocrit 35.3 % (35.0-46.0) Mean Corpuscular Volume 92.0 FL (80.0-100.0) Mean Corpuscular Hemoglobin 31.5 PG (27.0-34.0) Mean Corpuscular Hemoglobin Concent 34.3 % (32.0-36.0) Red Cell Distribution Width 13.6 % (11.6-17.2) Platelet Count 191 TH/MM3 (150-450) Mean Platelet Volume 9.4 FL (7.0-11.0) Blood Urea Nitrogen 15 MG/DL (7-18) Creatinine 0.79 MG/DL (0.50-1.00) Random Glucose 121 MG/DL (74-106) Total Protein 6.7 GM/DL (6.4-8.2) Albumin 2.6 GM/DL (3.4-5.0) Calcium Level 9.0 MG/DL (8.5-10.1) Alkaline Phosphatase 101 U/L (45-117) Aspartate Amino Transf (AST/SGOT) 22 U/L (15-37) Alanine Aminotransferase (ALT/SGPT) 31 U/L (10-53) Total Bilirubin 0.5 MG/DL (0.2-1.0) Direct Bilirubin 0.2 MG/DL (0.0-0.2) Sodium Level 136 MEQ/L (136-145) Potassium Level 4.3 MEQ/L (3.5-5.1) Chloride Level 98 MEQ/L (98-107) Carbon Dioxide Level 28.5 MEQ/L (21.0-32.0) Anion Gap 10 MEQ/L (5-15) Estimat Glomerular Filtration Rate 87 ML/MIN (>89) Indirect Bilirubin 0.3 MG/DL (0.0-0.8) Result Diagram: 08/08/1742908/08/17429 (1) S/P CABG x 2 Plan: ASA, statin, BB , plavix, amiodarone OOB ambulate (2) NSTEMI (non-ST elevated myocardial infarction) Plan: (3) COPD (chronic obstructive pulmonary disease) Plan: Spiriva nebs aggressive pulm toileting (4) Diabetes mellitus Plan: insulin SS HGB A1C 5.8 (5) Coronary artery disease with unstable angina pectoris (6) Tobacco abuse Plan: cessation (7) LFT elevation Plan: hep panel neg indices trending down > resolved start statin (8) Illicit drug use Plan: cessation Problem Qualifiers (1) COPD (chronic obstructive pulmonary disease): Qualified Codes: J43.9 - Emphysema, unspecified (2) Diabetes mellitus: (3) Coronary artery disease with unstable angina pectoris: Qualified Codes: I25.110 - Atherosclerotic heart disease of [place] coronary artery with unstable angina pectoris Lili Nayak Aug 08, 2017 10:50
--- NOTE | 2017-08-08 14:47 | PD.CARD.PN ---
Subjective Subjective Remarks alert in nad, chest tubes out Objective Medications Current Medications Medications (Trade) Dose Ordered Sig/Wagner Route Start Time Stop Time Status Last Admin (Proair Hfa Inh) 1 puff BID PRN INH 08/03/17 14:00 (Norvasc) 5 mg DAILY PO 08/04/17 09:00 Future Hold 08/08/17 08:10 (Lioresal) 10 mg HS PO 08/03/17 21:00 08/07/17 21:38 (Synthroid) 200 mcg DAILY@0600 PO 08/04/17 06:00 08/08/17 06:10 (Pred Forte 1% Opth Susp) 1 drop DAILY EACH EYE 08/04/17 09:00 08/08/17 08:12 (Prinivil) 40 mg DAILY PO 08/04/17 09:00 Future Hold (Spiriva Inh) 18 mcg DAILY INH 08/04/17 09:00 08/08/17 08:12 (Ventolin Hfa Inh) 2 puff QID INH 08/03/17 18:00 Future Hold (Narcan Inj) 0.4 mg UNSCH PRN IV PUSH 08/04/17 00:30 (Senokot) 17.2 mg Q12H PRN PO 08/04/17 00:30 (Dulcolax Supp) 10 mg DAILY PRN RECTAL 08/04/17 00:30 (Lactulose Liq) 30 ml DAILY PRN PO 08/04/17 00:30 (Pepcid) 10 mg BID PRN PO 08/04/17 00:30 (NS Flush) 2 ml BID IV FLUSH 08/05/17 12:00 08/08/17 08:11 (NS Flush) 2 ml UNSCH PRN IV FLUSH 08/05/17 12:00 (Aspirin Chew) 81 mg DAILY PO 08/06/17 09:00 08/08/17 08:11 (Plavix) 75 mg DAILY PO 08/06/17 09:00 08/08/17 08:10 (Protonix) 40 mg DAILY@06 PO 08/06/17 06:00 08/08/17 06:11 (Tylenol) 650 mg Q4H PRN PO 08/05/17 12:00 (Logan 5-325 Mg) 1 tab Q3H PRN PO 08/05/17 12:00 08/08/17 10:03 (Zofran Odt) 4 mg Q6H PRN PO 08/05/17 12:00 (Apresoline Inj) 10 mg Q4H PRN IV PUSH 08/05/17 12:00 (Lopressor Inj) 2.5 mg Q1H PRN IV PUSH 08/05/17 12:00 08/05/17 15:09 (Calcium Chloride Inj) 0.5 gm UNSCH PRN IV PUSH 08/05/17 12:00 (Duoneb Neb) 1 ampule Q6HR NEB NEB 08/05/17 16:00 08/08/17 03:40 (Duoneb Neb) 1 ampule Q2HR NEB PRN NEB 08/05/17 12:00 (Tessalon) 200 mg TID PRN PO 08/06/17 08:30 (Colace) 100 mg BID PO 08/06/17 21:00 08/08/17 08:10 (Theragran M Tab) 1 tab DAILY PO 08/07/17 09:00 08/08/17 08:11 (Lipitor) 40 mg DAILY PO 08/07/17 09:00 08/08/17 08:10 (Milk Of Magnesia Liq) 30 ml DAILY PO 08/07/17 09:00 08/07/17 08:21 (Dulcolax Supp) 10 mg UNSCH PRN RECTAL 08/06/17 11:00 (Miralax) 17 gm DAILY PO 08/07/17 09:00 08/07/17 08:21 (Senokot) 8.6 mg HS PO 08/06/17 21:00 08/06/17 20:34 (D50w (Vial) Inj) 50 ml UNSCH PRN IV PUSH 08/06/17 11:00 (Glucagon Inj) 1 mg UNSCH PRN OTHER 08/06/17 11:00 (Mucomyst 10% Neb) 2 ml Q4HR NEB NEB 08/06/17 12:00 08/08/17 07:56 (NovoLOG SUPPLEMENTAL SCALE) 1 ACHS SQ 08/07/17 17:00 08/08/17 12:14 (Cordarone) 400 mg Q12HR PO 08/08/17 21:00 (Coreg) 12.5 mg Q12HR PO 08/08/17 21:00 (Lasix Inj) 40 mg DAILY IV PUSH 08/09/17 09:00 (KCl) 30 meq DAILY PO 08/09/17 09:00 (Lipitor) 40 mg HS PO 08/08/17 21:00 Vital Signs / I&O Vital Signs Date Time Temp Pulse Resp B/P (MAP) Pulse Ox O2 Delivery O2 Flow Rate FiO2 08/08/17 13:01 78 08/08/17 12:00 94 08/08/17 11:21 95 Room Air 08/08/17 11:21 97.9 75 18 108/62 (77) 95 08/08/17 11:01 77 08/08/17 10:01 98 08/08/17 09:00 116 08/08/17 08:30 97.7 98 18 127/73 (91) 95 08/08/17 08:30 95 Room Air 08/08/17 08:00 104 08/08/17 07:01 84 08/08/17 06:00 82 08/08/17 05:00 84 08/08/17 04:38 97.9 97 16 128/79 (95) 95 08/08/17 04:35 96 Room Air 08/08/17 04:00 88 08/08/17 03:00 86 08/08/17 02:00 86 08/08/17 01:00 90 08/08/17 00:00 97.9 88 16 105/62 (76) 95 08/08/17 00:00 83 08/07/17 23:22 93 Room Air 08/07/17 23:00 94 08/07/17 21:38 93 21 08/07/17 21:00 98.3 106 16 135/75 (95) 91 08/07/17 21:00 91 Room Air 08/07/17 20:00 104 08/07/17 19:00 107 08/07/17 18:56 18 08/07/17 18:17 114 08/07/17 17:03 118 08/07/17 16:42 96 21 08/07/17 16:00 90 08/07/17 15:05 94 Room Air 08/07/17 15:05 98 08/07/17 15:05 98.0 91 18 132/77 (95) 94 I/O 08/07/17 08/07/17 08/07/17 08/08/17 08/08/174/18 07:00 15:00 23:00 07:00 15:00 23:00 Intake Total 580 ml 600 ml 480 ml Output Total 440 ml 1050 ml 525 ml Balance 140 ml -450 ml -45 ml Intake Oral 480 ml 600 ml 480 ml IV Total 100 ml Output Urine Total 400 ml 1050 ml 525 ml Chest Tube Drainage Total 40 ml # Bowel Movements 0 1 0 Physical Exam GENERAL: SKIN: Warm and dry. HEAD: Normocephalic. EYES: No scleral icterus. No injection or drainage. NECK: Supple, trachea midline. No JVD or lymphadenopathy. CARDIOVASCULAR: Regular rate and rhythm without murmurs, gallops, or rubs. RESPIRATORY: Breath sounds equal bilaterally. No accessory muscle use. GASTROINTESTINAL: Abdomen soft, non-tender, nondistended. MUSCULOSKELETAL: No cyanosis, or edema. BACK: Nontender without obvious deformity. No CVA tenderness. Laboratory Laboratory Tests Test 08/08/17 04:30 White Blood Count 9.2 TH/MM3 Red Blood Count 3.84 MIL/MM3 Hemoglobin 12.1 GM/DL Hematocrit 35.3 % Mean Corpuscular Volume 92.0 FL Mean Corpuscular Hemoglobin 31.5 PG Mean Corpuscular Hemoglobin Concent 34.3 % Red Cell Distribution Width 13.6 % Platelet Count 191 TH/MM3 Mean Platelet Volume 9.4 FL Blood Urea Nitrogen 15 MG/DL Creatinine 0.79 MG/DL Random Glucose 121 MG/DL Total Protein 6.7 GM/DL Albumin 2.6 GM/DL Calcium Level 9.0 MG/DL Alkaline Phosphatase 101 U/L Aspartate Amino Transf (AST/SGOT) 22 U/L Alanine Aminotransferase (ALT/SGPT) 31 U/L Total Bilirubin 0.5 MG/DL Direct Bilirubin 0.2 MG/DL Sodium Level 136 MEQ/L Potassium Level 4.3 MEQ/L Chloride Level 98 MEQ/L Carbon Dioxide Level 28.5 MEQ/L Anion Gap 10 MEQ/L Estimat Glomerular Filtration Rate 87 ML/MIN Indirect Bilirubin 0.3 MG/DL Assessment and Plan Problem List: (1) S/P CABG x 2 ICD Codes: Z95.1 - Presence of aortocoronary bypass graft (2) NSTEMI (non-ST elevated myocardial infarction) ICD Codes: I21.4 - Non-ST elevation (NSTEMI) myocardial infarction Status: Acute (3) COPD (chronic obstructive pulmonary disease) ICD Codes: J44.9 - Chronic obstructive pulmonary disease, unspecified Status: Chronic (4) Diabetes mellitus ICD Codes: E11.9 - Type 2 diabetes mellitus without complications Status: Chronic (5) Coronary artery disease with unstable angina pectoris ICD Codes: I25.110 - Atherosclerotic heart disease of [place] coronary artery with unstable angina pectoris Status: Acute (6) Tobacco abuse ICD Codes: Z72.0 - Tobacco use Status: Acute (7) LFT elevation ICD Codes: R79.89 - Other specified abnormal findings of blood chemistry Status: Acute (8) Illicit drug use ICD Codes: F19.90 - Other psychoactive substance use, unspecified, uncomplicated Status: Acute Assessment and Plan 1.) NSTEMI - pod # 4, off pump 2 vessel cabg, extubated, off pressors, on aspirin, plavix, lipitor 40 mg hs, coreg, recheck lfts in am, strongly advised to dc smoking/tobacco and drugs Problem Qualifiers (1) COPD (chronic obstructive pulmonary disease): Qualified Codes: J43.9 - Emphysema, unspecified (2) Diabetes mellitus: (3) Coronary artery disease with unstable angina pectoris: Qualified Codes: I25.110 - Atherosclerotic heart disease of [place] coronary artery with unstable angina pectoris Aleksey Rich MD Aug 08, 2017 14:47
[2017-08-08] MEDS: SENNOSIDES 8.6 MG TAB PO SCH (20:07)
[2017-08-08] MEDS: BACLOFEN 10 MG TAB PO SCH (20:07)
[2017-08-08] MEDS ORDERED: ATORVASTATIN 40 MG TAB PO SCH (21:00)
[2017-08-09] VITALS (20 sets, daily range): BP systolic 97–133; BP diastolic 56–73; PULSE 63–90; RESP 16–18; TEMP 97.7–99.9; O2SAT 92–97
[2017-08-09] MEDS: ACETAMINOPHEN/HYDROcodone 325 MG/5 MG TAB PO PRN ×4 (00:39→14:15)
[2017-08-09] MEDS: RESP: ACETYLCYSTEINE 10% 30 ML NEB NEB SCH ×5 (04:00→16:00)
[2017-08-09] MEDS: RESP: ALBUTEROL 2.5 MG/IPRATROPIUM 0.5 MG NEB (SCH) NEB ×2 (04:00→10:36)
[2017-08-09] MEDS: PANTOPRAZOLE SOD 40 MG DELAYED RELEASE TAB PO SCH (04:42)
[2017-08-09] MEDS: LEVOTHYROXINE SODIUM 200 MCG TAB PO SCH (04:42)
[2017-08-09 05:14] LABS: HEMATOCRIT 36.8 % (35.0-46.0); HEMOGLOBIN 12.4 GM/DL (11.6-15.3); MEAN CORPUSCULAR HEMOGLOBIN 31.7 PG (27.0-34.0); MEAN CORPUSCULAR HGB CONC 33.7 % (32.0-36.0); MEAN PLATELET VOLUME 9.9 FL (7.0-11.0); PLATELET COUNT 205 TH/MM3 (150-450); RED BLOOD COUNT 3.92 MIL/MM3 (4.00-5.30); RED CELL DISTRIBUTION WIDTH 13.6 % (11.6-17.2); WHITE BLOOD COUNT 7.4 TH/MM3 (4.0-11.0)
[2017-08-09] MEDS: INSULIN ASPART SUPPLEMENTAL SCALE SQ SCH ×2 (08:26→12:14)
[2017-08-09] MEDS: POLYETHYLENE GLYCOL 17 GM PKG PO SCH (08:26)
[2017-08-09] MEDS: DOCUSATE SODIUM 100 MG CAP PO SCH (08:26)
[2017-08-09] MEDS: ASPIRIN 81 MG CHEW TAB PO SCH (08:27)
[2017-08-09] MEDS: ATORVASTATIN 40 MG TAB PO SCH (08:27)
[2017-08-09] MEDS: CLOPIDOGREL 75 MG TAB PO SCH (08:27)
[2017-08-09] MEDS: MULTIVITAMINS/MINERALS THERAPEUTIC TAB PO SCH (08:28)
[2017-08-09] MEDS: CARVEDILOL 3.125 MG TAB PO SCH (08:28)
[2017-08-09] MEDS: AMIODARONE 200 MG TAB PO SCH (08:28)
[2017-08-09] MEDS: SODIUM CHLORIDE 0.9% FLUSH 10 ML FLUSH IV FLUSH SCH (08:29)
[2017-08-09] MEDS: TIOTROPIUM BROMIDE 18 MCG INH INH SCH (08:29)
[2017-08-09] MEDS: MAGNESIUM HYDROXIDE SUSP 30 ML CUP PO SCH (08:30)
[2017-08-09] MEDS: prednisoLONE ACETATE 1% OPHT SUSP 5 ML BTL EACH EYE SCH (08:35)
[2017-08-09] MEDS ORDERED: FUROSEMIDE 40 MG/4 ML VIAL IV PUSH SCH (09:00)
[2017-08-09] MEDS ORDERED: POTASSIUM CHLORIDE 10 MEQ CONTROLLED RELEASE TAB PO SCH (09:00)
--- NOTE | 2017-08-09 09:28 | RADRPT ---
EXAM DATE: 08/09/2017 9:12 AM EDT AGE/SEX: 71 years / Female INDICATIONS: Shortness of breath and follow up on left lower lung consolidation. CLINICAL DATA: This is the patient's subsequent encounter. Patient reports that signs and symptoms h ave been present for 1 week and indicates a pain score of 0/10. MEDICAL/SURGICAL HISTORY: Cardiovascular disease. Asthma. CABG. COMPARISON: [facility] – [place] CHEST SINGLE AP, 08/07/2017. . FINDINGS: Portable AP view of the chest demonstrate a normal-sized cardiac silhouette post median sternotomy. T he right IJ line has been removed. EKG lines overlie the patient. There is moderate elevation of the left hemidiaphragm with bibasilar airspace opacity, left greater than right. There is slight blunting of the left costophrenic sulcus. No pneumothorax is identified. Stable linear scar is present in the left upper lobe. The left chest tube has been removed. CONCLUSION: 1. Stable left basilar airspace opacity representing either atelectasis or consolidation. There is l ikely trace left pleural fluid as well. 2. Opacity at the right lung base has an appearance favoring subsegmental atelectasis. 3. No pneumothorax is visualized following a left chest tube removal. Electronically signed by: Saul Harris MD 08/09/2017 9:27 AM EDT
[2017-08-09] MEDS ORDERED: DOCU1CAP39 PO (13:50)
[2017-08-09] MEDS ORDERED: AMIO200T PO (13:50)
[2017-08-09] MEDS ORDERED: PLAV75TA29 PO (13:50)
[2017-08-09] MEDS ORDERED: THERM PO (13:50)
[2017-08-09] MEDS ORDERED: CARV3.125 PO (13:50)
[2017-08-09] MEDS ORDERED: ATOR40TA16 PO (13:50)
[2017-08-09] MEDS ORDERED: ZITH250T PO (13:51)
--- NOTE | 2017-08-09 13:57 | HHI.DS ---
Discharge Summary Admission Date August 03, 2017 at 13:50 Admitting Diagnosis Chest Pain with elevated Troponin (1) Chest pain at rest Diagnosis: Principal ICD Codes: R07.9 - Chest pain, unspecified Status: Acute (2) Elevated troponin Diagnosis: Principal ICD Codes: R74.8 - Abnormal levels of other serum enzymes Status: Acute (3) NSTEMI (non-ST elevated myocardial infarction) Diagnosis: Principal ICD Codes: I21.4 - Non-ST elevation (NSTEMI) myocardial infarction Status: Acute (4) Hyperlipidemia Diagnosis: Principal ICD Codes: E78.5 - Hyperlipidemia, unspecified Status: Chronic (5) Hypothyroidism Diagnosis: Principal ICD Codes: E03.9 - Hypothyroidism, unspecified Status: Chronic (6) Tobacco abuse Diagnosis: Principal ICD Codes: Z72.0 - Tobacco use Status: Acute (7) Diabetes mellitus Diagnosis: Principal ICD Codes: E11.9 - Type 2 diabetes mellitus without complications Status: Chronic (8) S/P CABG x 2 Diagnosis: Secondary ICD Codes: Z95.1 - Presence of aortocoronary bypass graft Procedures 08/05 1. Urgent Off-pump Coronary Artery Bypass Grafting x 2 with Left Internal Mammary Artery (EARL) to Left Anterior Descending (LAD), reverse saphenous vein graft to the Obtuse Marginal 1 (OM1) branch of the Left Circumflex Coronary Artery 2. Left Leg Endoscopic Vein [place] 3. Intraoperative Vein Mapping. Brief History 71-year-old patient with history of hypertension, osteoarthritis who was recently seen in the emergency department on 08/01 for left shoulder pain. They did an x-ray which showed moderate to severe osteoarthritis. She was sent home on Mobic. She said the pain is a constant ache exacerbated with movement. She went to see her primary care physician, Dr. Emerson, who sent her here for cardiac workup. Her EKG did show some poor R-wave progression. Her troponin was 0.11. She was ruled in for a non-STEMI and she went to the slab lifting engineer, per , which showed ejection fraction of 45%, left main disease of 60%, proximal LAD 95%, mid distal LAD 95%, OM 75%, the RCA 75%. We were consulted to evaluate for coronary artery bypass grafting. PAST MEDICAL HISTORY: Includes hypertension, osteoarthritis, diabetes mellitus, hypothyroidism, hyperlipidemia and COPD. Urine drug screen + cocaine which admits to snorting once a month and regular marijuana use CBC/BMP: 08/09/17 0424 08/08/17 0430 Significant Findings Laboratory Tests Test 08/07/17 03:05 08/08/17 04:30 08/09/17 04:24 Red Blood Count 3.87 MIL/MM3 (4.00-5.30) 3.84 MIL/MM3 (4.00-5.30) 3.92 MIL/MM3 (4.00-5.30) Neutrophils (%) (Auto) 76.1 % (16.0-70.0) Monocytes (%) (Auto) 10.6 % (0.0-8.0) Monocytes # (Auto) 1.0 TH/MM3 (0-0.9) Random Glucose 121 MG/DL (74-106) 121 MG/DL (74-106) Calcium Level 8.4 MG/DL (8.5-10.1) Albumin 2.6 GM/DL (3.4-5.0) Estimat Glomerular Filtration Rate 87 ML/MIN (>89) Imaging Last Impressions Chest X-Ray 08/09/17 0000 Signed Impressions: CONCLUSION: 1. Stable left basilar airspace opacity representing either atelectasis or con solidation. There is likely trace left pleural fluid as well. 2. Opacity at the right lung base has an appearance favoring subsegmental atel ectasis. 3. No pneumothorax is visualized following a left chest tube removal. Lower Extremity Ultrasound 08/03/17 Signed Impressions: CONCLUSION: 1. Lower extremity venous mapping, as above. Carotid Artery Ultrasound 08/03/17 Signed Impressions: CONCLUSION: 1. Right Internal Carotid Artery: Findings indicate <50% stenosis. 2. Left Internal Carotid Artery: Findings indicate <50% stenosis. PE at Discharge GENERAL: A&O x 3 SKIN: Warm and dry. prevena dressing to chest / incision intact to leg HEAD: Normocephalic. EYES: No scleral icterus. No injection or drainage. NECK: Supple, trachea midline. No JVD or lymphadenopathy. CARDIOVASCULAR: Regular rate and rhythm without murmurs, gallops, or rubs. RESPIRATORY: Breath sounds equal bilaterally. No accessory muscle use. diminished in bases , faint wheeze GASTROINTESTINAL: Abdomen soft, non-tender, nondistended. MUSCULOSKELETAL: No cyanosis, or edema. BACK: Nontender without obvious deformity. No CVA tenderness. Hospital Course 08/04 carotid US R&L < 50% stenosis leg vein mapping ( left Jackson's cyst ) mild elevated LFT's trending down ( Hep panel negative ) scheduled for surgery in am 08/06/17 No complaints. Doing well CXR shows RUL atelectasis 08/07/17 Doing well today. No complaints. CXR improved. 08/08 still has coarse breath sounds, requires pulm toileting nebs, ezpap , continue mucomyst for now sinus tach> will increase amiodarone and BB check sputum / no leukocytosis 08/09 on room air, coughing up light beige sputum / sputum no growth to date no leukocytosis ( add zithromax x 5 days ) NSR , stable for discharge Pt Condition on Discharge: Good Discharge Disposition: Disch w/ Home Health Serv Discharge Instructions DIET: Follow Instructions for: Heart Healthy Diet Activities you can perform: Full Weight Bearing, Shower/Bath Activities to avoid: Strenuous Activity, Driving Additional Activity Instructio: no lifting > 8 lbs or gallon of milk Follow up Referrals: Cardiology - 4 Weeks with Aleksey Rich MD PCP Follow-up - 2 Weeks with Cole Emerson MD [facility] Surgical - 2 Weeks with Lili Nayak New Medications: Azithromycin (Zithromax) 250 Mg Tab 250 MG PO DAILY for Infection for 4 Days, #4 TAB 0 Refills Amiodarone (Amiodarone) 200 Mg Tab 200 MG PO Q12HR for heart rhythm, #28 TAB 0 Refills Atorvastatin (Atorvastatin) 40 Mg Tab 40 MG PO HS for Cholesterol Management, #30 TAB 2 Refills Carvedilol (Coreg) 3.125 Mg Tab 12.5 MG PO Q12HR for Blood Pressure Management, #60 TAB 2 Refills Clopidogrel (Plavix) 75 Mg Tab 75 MG PO DAILY for Blood Clot Prevention, #30 TAB 2 Refills Docusate Sodium (Dok) 100 Mg Cap 100 MG PO BID for Constipation, #60 CAP 0 Refills Multiple Vitamins W/ Minerals (Thera M Plus) 1 Tab 1 TAB PO DAILY for multi vitamin, #30 TAB 2 Refills Continued Medications: Albuterol 6.7 GM Inh (Proventil Hfa 6.7 GM Inh) 90 Mcg/Act Aer 1 PUFF INH Q4-6H PRN for SHORTNESS OF BREATH, #1 INHALER 0 Refills Amlodipine (Amlodipine) 5 Mg Tab 5 MG PO DAILY for Blood Pressure Management, #90 TAB 6 Refills Aspirin (Aspirin) 81 Mg Chew 81 MG CHEW DAILY, #30 TAB 0 Refills Baclofen (Baclofen) 10 Mg Tab 10 MG PO HS, #30 TAB 0 Refills Gabapentin (Gabapentin) 300 Mg Cap 300 MG PO TID, #90 CAP 3 Refills Glipizide (Glipizide) 5 Mg Tab 2.5 MG PO BID for Blood Sugar Management, #90 TAB 3 Refills Take 30 minutes before a meal Ipratropium-Albuterol Inh (Combivent Respimat Inh) 20-100 Longterm/Act Aero 1 PUFF INH QID for Asthma Management, #1 INHALER 6 Refills Levothyroxine (Synthroid) 200 Mcg Tab 200 MCG PO DAILY for Thyroid, #30 TAB 6 Refills Lisinopril (Lisinopril) 40 Mg Tab 40 MG PO DAILY for Blood Pressure Management, #90 TAB 6 Refills Metformin (Metformin) 500 Mg Tab 500 MG PO BIDPC for Blood Sugar Management, #180 TAB 6 Refills With meals Prednisolone Acetate Opth 1% (Pred Forte Opth 1%) 1% Susp 1 DROP EACH EYE DAILY for Inflammation, #1 BOTTLE 0 Refills Tramadol (Tramadol) 50 Mg Tab 50 MG PO Q8H PRN for PAIN, #60 TAB 0 Refills Discontinued Medications: Meloxicam (Mobic) 7.5 Mg Tab 7.5 MG PO DAILY PRN for PAIN SCALE 1 TO 10, #14 TAB 0 Refills Lili Nayak Aug 09, 2017 13:57
[2017-08-09] MEDS ORDERED: AZITHROMYCIN 250 MG TAB PO ONE (14:00)
[2017-08-09] MEDS ORDERED: WALKER WHEELS/F1 MIS (14:02)
--- NOTE | 2017-08-09 15:16 | PD.CARD.PN ---
Subjective Subjective Remarks alert in nad, chest tubes out Objective Medications Current Medications Medications (Trade) Dose Ordered Sig/Wagner Route Start Time Stop Time Status Last Admin (Proair Hfa Inh) 1 puff BID PRN INH 08/03/17 14:00 (Norvasc) 5 mg DAILY PO 08/04/17 09:00 Future Hold 08/08/17 08:10 (Lioresal) 10 mg HS PO 08/03/17 21:00 08/08/17 20:07 (Synthroid) 200 mcg DAILY@0600 PO 08/04/17 06:00 08/09/17 04:42 (Pred Forte 1% Opth Susp) 1 drop DAILY EACH EYE 08/04/17 09:00 08/09/17 08:35 (Prinivil) 40 mg DAILY PO 08/04/17 09:00 Future Hold (Spiriva Inh) 18 mcg DAILY INH 08/04/17 09:00 08/09/17 08:29 (Ventolin Hfa Inh) 2 puff QID INH 08/03/17 18:00 Future Hold (Narcan Inj) 0.4 mg UNSCH PRN IV PUSH 08/04/17 00:30 (Senokot) 17.2 mg Q12H PRN PO 08/04/17 00:30 (Dulcolax Supp) 10 mg DAILY PRN RECTAL 08/04/17 00:30 (Lactulose Liq) 30 ml DAILY PRN PO 08/04/17 00:30 (Pepcid) 10 mg BID PRN PO 08/04/17 00:30 (NS Flush) 2 ml BID IV FLUSH 08/05/17 12:00 08/09/17 08:29 (NS Flush) 2 ml UNSCH PRN IV FLUSH 08/05/17 12:00 (Aspirin Chew) 81 mg DAILY PO 08/06/17 09:00 08/09/17 08:27 (Plavix) 75 mg DAILY PO 08/06/17 09:00 08/09/17 08:27 (Protonix) 40 mg DAILY@06 PO 08/06/17 06:00 08/09/17 04:42 (Tylenol) 650 mg Q4H PRN PO 08/05/17 12:00 (Addy 5-325 Mg) 1 tab Q3H PRN PO 08/05/17 12:00 08/09/17 14:15 (Zofran Odt) 4 mg Q6H PRN PO 08/05/17 12:00 (Apresoline Inj) 10 mg Q4H PRN IV PUSH 08/05/17 12:00 (Lopressor Inj) 2.5 mg Q1H PRN IV PUSH 08/05/17 12:00 08/05/17 15:09 (Calcium Chloride Inj) 0.5 gm UNSCH PRN IV PUSH 08/05/17 12:00 (Duoneb Neb) 1 ampule Q6HR NEB NEB 08/05/17 16:00 08/09/17 10:36 (Duoneb Neb) 1 ampule Q2HR NEB PRN NEB 08/05/17 12:00 (Tessalon) 200 mg TID PRN PO 08/06/17 08:30 (Colace) 100 mg BID PO 08/06/17 21:00 08/09/17 08:26 (Theragran M Tab) 1 tab DAILY PO 08/07/17 09:00 08/09/17 08:28 (Lipitor) 40 mg DAILY PO 08/07/17 09:00 08/08/17 08:10 (Milk Of Magnesia Liq) 30 ml DAILY PO 08/07/17 09:00 08/07/17 08:21 (Dulcolax Supp) 10 mg UNSCH PRN RECTAL 08/06/17 11:00 (Miralax) 17 gm DAILY PO 08/07/17 09:00 08/09/17 08:26 (Senokot) 8.6 mg HS PO 08/06/17 21:00 08/06/17 20:34 (D50w (Vial) Inj) 50 ml UNSCH PRN IV PUSH 08/06/17 11:00 (Glucagon Inj) 1 mg UNSCH PRN OTHER 08/06/17 11:00 (Mucomyst 10% Neb) 2 ml Q4HR NEB NEB 08/06/17 12:00 08/08/17 20:18 (NovoLOG SUPPLEMENTAL SCALE) 1 ACHS SQ 08/07/17 17:00 08/09/17 12:14 (Cordarone) 400 mg Q12HR PO 08/08/17 21:00 08/09/17 08:28 (Coreg) 12.5 mg Q12HR PO 08/08/17 21:00 08/09/17 08:28 (Lasix Inj) 40 mg DAILY IV PUSH 08/09/17 09:00 08/09/17 08:29 (KCl) 30 meq DAILY PO 08/09/17 09:00 08/09/17 08:28 (Lipitor) 40 mg HS PO 08/08/17 21:00 08/08/17 20:07 Vital Signs / I&O Vital Signs Date Time Temp Pulse Resp B/P (MAP) Pulse Ox O2 Delivery O2 Flow Rate FiO2 08/09/17 14:00 78 08/09/17 13:00 70 08/09/17 12:00 76 08/09/17 11:00 97.7 83 18 97/56 (70) 95 08/09/17 11:00 87 08/09/17 11:00 95 Room Air 08/09/17 10:38 92 08/09/17 10:00 90 08/09/17 10:00 17 08/09/17 09:00 87 08/09/17 08:00 83 08/09/17 07:15 97 Room Air 08/09/17 07:15 99.9 89 17 115/62 (79) 97 08/09/17 07:00 78 08/09/17 05:00 73 08/09/17 04:54 98.6 84 16 133/73 (93) 94 08/09/17 04:00 76 08/09/17 03:07 94 Room Air 08/09/17 03:00 63 08/09/17 02:00 74 08/09/17 01:00 74 08/09/17 00:00 76 08/09/17 00:00 96 Room Air 08/09/17 00:00 98.6 86 16 99/62 (74) 96 08/08/17 23:00 78 08/08/17 22:00 76 08/08/17 21:00 82 08/08/17 20:30 96 Room Air 08/08/17 20:21 98 21 08/08/17 20:08 98.6 86 18 117/69 (85) 94 08/08/17 20:00 92 08/08/17 19:00 84 08/08/17 18:01 92 08/08/17 17:00 92 08/08/17 16:00 86 I/O 08/08/17 08/08/17 08/08/17 08/09/17 08/09/17 08/09/17 07:00 15:00 23:00 07:00 15:00 23:00 Intake Total 480 ml 720 ml 480 ml Output Total 525 ml 800 ml 900 ml Balance -45 ml -80 ml -420 ml Intake Oral 480 ml 720 ml 480 ml Output Urine Total 525 ml 800 ml 900 ml # Voids 3 # Bowel Movements 0 1 Physical Exam GENERAL: SKIN: Warm and dry. HEAD: Normocephalic. EYES: No scleral icterus. No injection or drainage. NECK: Supple, trachea midline. No JVD or lymphadenopathy. CARDIOVASCULAR: Regular rate and rhythm without murmurs, gallops, or rubs. RESPIRATORY: Breath sounds equal bilaterally. No accessory muscle use. GASTROINTESTINAL: Abdomen soft, non-tender, nondistended. MUSCULOSKELETAL: No cyanosis, or edema. BACK: Nontender without obvious deformity. No CVA tenderness. Laboratory Laboratory Tests Test 08/09/17 04:24 White Blood Count 7.4 TH/MM3 Red Blood Count 3.92 MIL/MM3 Hemoglobin 12.4 GM/DL Hematocrit 36.8 % Mean Corpuscular Volume 94.0 FL Mean Corpuscular Hemoglobin 31.7 PG Mean Corpuscular Hemoglobin Concent 33.7 % Red Cell Distribution Width 13.6 % Platelet Count 205 TH/MM3 Mean Platelet Volume 9.9 FL Imaging Last 24 hours Impressions Chest X-Ray 08/09/17 0000 Signed Impressions: CONCLUSION: 1. Stable left basilar airspace opacity representing either atelectasis or con solidation. There is likely trace left pleural fluid as well. 2. Opacity at the right lung base has an appearance favoring subsegmental atel ectasis. 3. No pneumothorax is visualized following a left chest tube removal. Assessment and Plan Problem List: (1) S/P CABG x 2 ICD Codes: Z95.1 - Presence of aortocoronary bypass graft (2) NSTEMI (non-ST elevated myocardial infarction) ICD Codes: I21.4 - Non-ST elevation (NSTEMI) myocardial infarction Status: Acute (3) COPD (chronic obstructive pulmonary disease) ICD Codes: J44.9 - Chronic obstructive pulmonary disease, unspecified Status: Chronic (4) Diabetes mellitus ICD Codes: E11.9 - Type 2 diabetes mellitus without complications Status: Chronic (5) Coronary artery disease with unstable angina pectoris ICD Codes: I25.110 - Atherosclerotic heart disease of [place] coronary artery with unstable angina pectoris Status: Acute (6) Tobacco abuse ICD Codes: Z72.0 - Tobacco use Status: Acute (7) LFT elevation ICD Codes: R79.89 - Other specified abnormal findings of blood chemistry Status: Acute (8) Illicit drug use ICD Codes: F19.90 - Other psychoactive substance use, unspecified, uncomplicated Status: Acute Assessment and Plan 1.) NSTEMI - pod # 5, off pump 2 vessel cabg, extubated, off pressors, on aspirin, plavix, lipitor 40 mg hs, coreg, recheck lfts in am, strongly advised to dc smoking/tobacco and drugs Problem Qualifiers (1) COPD (chronic obstructive pulmonary disease): Qualified Codes: J43.9 - Emphysema, unspecified (2) Diabetes mellitus: (3) Coronary artery disease with unstable angina pectoris: Qualified Codes: I25.110 - Atherosclerotic heart disease of [place] coronary artery with unstable angina pectoris Aleksey Rich MD Aug 09, 2017 15:16
--- NOTE | 2017-08-13 08:27 | PQ ---
Physician Query Response Document PATIENT: JASWANT JUAREZ : 1945 ADMIT DATE: 08/03/2017 1:50 PM DISCH DATE: 08/09/2017 5:55 PM RESPONDING PROVIDER #: orly QUERY TEXT: CHF Acuity and Type Congestive Heart Failure is documented in the Medical Record. Please document the type and acuity (in cludes probable or suspected) Such as: Type: -- Systolic -- Diastolic -- Combined -- Other, please specify Acuity: -- Acute -- Chronic -- Acute on chronic -- Other, please specify The patient's Clinical Indicators include: Dr. Lizarraga, documentation show that patient has Class lll heart failure by [place] [employer] . BNP on admission was 23 and goran to 109 Per ECHO preformed on 08-07-17 patient had an Ejection Fraction(EF) of 50 %. PLEASE REVIEW THE QUESTION BELOW AND ANSWER TO THE BEST OF YOUR ABILITY. 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
== END 2017-08-09 17:55 | disposition home health service (06) | DRG 234 ==
LOC: NEPC 11:30 → NEDA 13:50 → HCPC 16:43 → HCVI 08-04 23:16 → HCPC 08-07 10:58
PROVIDERS: ADMIT Thoracic Surgery (Cardiothoracic Vascular Surgery); ATTEND Thoracic Surgery (Cardiothoracic Vascular Surgery)
PROC: 4A023N7 Measurement of Cardiac Sampling and Pressure, Left Heart, Percutaneous Approach (ICD-10-PCS; 2017-08-03)
PROC: B2111ZZ Fluoroscopy of Multiple Coronary Arteries using Low Osmolar Contrast (ICD-10-PCS; 2017-08-03)
PROC: B2151ZZ Fluoroscopy of Left Heart using Low Osmolar Contrast (ICD-10-PCS; 2017-08-03)
PROC: 021009W Bypass Coronary Artery, One Artery from Aorta with Autologous Venous Tissue, Open Approach (ICD-10-PCS; 2017-08-05)
PROC: 06BQ4ZZ Excision of Left Saphenous Vein, Percutaneous Endoscopic Approach (ICD-10-PCS; 2017-08-05)
PROC: 02100Z9 Bypass Coronary Artery, One Artery from Left Internal Mammary, Open Approach (ICD-10-PCS; principal; 2017-08-05 07:48)
DX: I21.4 Non-ST elevation (NSTEMI) myocardial infarction (principal); I11.0 Hypertensive heart disease with heart failure; I50.9 Heart failure, unspecified; E11.69 Type 2 diabetes mellitus with other specified complication; J98.11 Atelectasis; I25.110 Atherosclerotic heart disease of native coronary artery with unstable angina pectoris; M19.012 Primary osteoarthritis, left shoulder; Z79.84 Long term (current) use of oral hypoglycemic drugs; F14.90 Cocaine use, unspecified, uncomplicated; F12.90 Cannabis use, unspecified, uncomplicated; J43.9 Emphysema, unspecified; E78.2 Mixed hyperlipidemia; E89.0 Postprocedural hypothyroidism; Z82.49 Family history of ischemic heart disease and other diseases of the circulatory system; Z80.9 Family history of malignant neoplasm, unspecified; F17.210 Nicotine dependence, cigarettes, uncomplicated; Z79.82 Long term (current) use of aspirin; I65.23 Occlusion and stenosis of bilateral carotid arteries; M71.22 Synovial cyst of popliteal space [Baker], left knee; Z79.899 Other long term (current) drug therapy
CPT/HCPCS: 71045; 76937; 80048; 80053; 80061; 80074; 80076; 80307; 81001; 82550; 82948; 83036; 83735; 83880; 84100; 84436; 84443; 84481; 84484; 85025; 85027; 85610; 85730; 86850; 86900; 86901; 86920; 87070; 87205; 87641; 93005; 93306; 93458; 93880; 93970; 93998; 94002; 94010; 94150; 94640; 94664; 94667; 94668; 96361; 96374; 99152; C1768; C1769; C1893; C9248; G0481; J0131; J0153; J0690; J1644; J1815; J1817; J1885; J1940; J2250; J2270; J2370; J2440; J2720; J3010; J3370; J3475; J7040; J7050; J7120; J7608; Q9967